=== PATIENT | male | born 1935 | race Caucasian/White ===

== ENCOUNTER 2020-08-23 14:54 | Inpatient (IN) | payer MEDICARE, BC ==
[2020-08-23] MEDS ORDERED: Sodium Chloride 0.9% 2.5 ML Syringe FLUSH PRN (15:23)
[2020-08-23] MEDS ORDERED: Sodium Chloride 0.9% 10 ML Syringe FLUSH PRN (15:23)
[2020-08-23 15:50] LABS: BLOOD UREA NITROGEN,BUN 29 mg/dL (7.0-18.0); CARBON DIOXIDE,CO2 30.7 mmol/L (21.0-32.0); CHLORIDE,CL 109 mmol/L (98-107); GLUCOSE RANDOM 100 mg/dL (74-106); SODIUM,NA 144 mmol/L (136-148)
--- NOTE | 2020-08-23 16:08 | CR ---
HISTORY: Cough and shortness of breath. COMPARISON: 09/07/2015 FINDINGS: A portable erect AP view of the chest was obtained at 15 30 hours. There is new mild patchy interstitial infiltrate throughout the lungs, more prominent on the left than the right. This is associated with new mild vascular engorgement, findings of new mild congestive failure. There is new mild linear density in the right lung base consistent with atelectasis. There is no sign of any pleural effusion. The heart has increased in size and is now mildly enlarged. The mediastinum is otherwise normal in appearance. The osseous structures are normal in appearance for the patient`s age. IMPRESSION: Findings of new mild congestive failure with new mild cardiomegaly. Pulmonary edema slightly more prominent in the left lung than elsewhere. New mild linear right basilar atelectasis. Dictated by Chris Nolan MD @ 08/23/2020 4:07:[address] Chris Nolan @ Aug 23 2020 4:07PM
--- NOTE | 2020-08-23 16:17 | PCM.EKG ---
#1 Interpretation EKG Date: 08/23/20 Time: 15:55 Rhythm: A-Fib Rate (Beats/Min): 97 [place]: Normal P-Wave: Absent QRS: Normal ST-T: Normal QT: Normal Comparison: No Change EKG Interpretation Comments: Prior history of atrial fibrillation seen on prior EKG in 2016.
[2020-08-23 16:47] LABS: CORONAVIRUS COVID-19 NAA NEGATIVE (NEGATIVE); INFLUENZA A NAA NEGATIVE (NEGATIVE); INFLUENZA B NAA NEGATIVE (NEGATIVE)
[2020-08-23] MEDS ORDERED: Iopamidol 755 MG/ML 500 ML Multipack Bottle IVPUSH STA (18:07)
--- NOTE | 2020-08-23 19:01 | CT ---
INDICATION: Aspirated food today. Shortness of breath for 4 weeks. Cough. COMPARISON: Chest radiograph from earlier today. TECHNIQUE: CT examination of the chest was performed with the uneventful intravenous administration of 100 cc of Isovue 370 while 1 and 1.5 mm thick axial sections were obtained through the pulmonary arteries. Please note that all CT scans at this facility use dose modulation, iterative reconstruction, and/or weight-based dosing when appropriate to reduce radiation dose to as low as reasonably achievable. FINDINGS: : There is no sign of pulmonary embolism, with normal enhancement and branching of the pulmonary arteries. There is a small right pleural effusion. There is mild atelectasis of the posterior lung bases, right greater than left. There is mild patchy ground-glass pulmonary infiltrate with a perihilar distribution, consistent with mild pulmonary edema. The pulmonary vessels are mildly engorged, findings consistent with mild congestive failure. There is no sign of mediastinal or hilar mass or adenopathy. The heart is seen to be mildly enlarged with four-chamber dilatation. There is moderate LAD coronary calcification. The heart is otherwise normal in appearance for the patient`s age, as are the aorta and other ascending great vessels. There is no sign of supraclavicular or axillary mass or adenopathy. The visualized superior liver, spleen, pancreas, kidneys, and adrenals are normal in appearance. There is moderate cholelithiasis, with multiple calcified and noncalcified dependent calculi in the gallbladder. There is no sign of acute cholecystitis, with no sign of gallbladder wall thickening or pericholecystic fluid. There is a moderate T10 compression fracture with increased T10-11 disc height with vacuum disc degeneration. The compression fractures more prominent on the left than the right without definite increased scoliosis in this location. There is mild scoliosis of the thoracic spine convex towards the right. There is moderate, age-appropriate hypertrophic change throughout the thoracic spine. IMPRESSION: No sign of pulmonary embolism. Small right greater than left pleural effusions and mild interstitial pulmonary edema with mild vascular engorgement, findings of mild congestive failure. The heart is mildly enlarged. Moderate cholelithiasis without evidence of acute cholecystitis. Please note that all CT scans at this facility use dose modulation, iterative reconstruction, and/or weight-based dosing when appropriate to reduce radiation dose to as low as reasonably achievable. Dictated by Chris Nolan MD @ 08/23/2020 7:00:[address] Chris Nolan @ Aug 23 2020 7:00PM
[2020-08-23] MEDS ORDERED: Furosemide 40 MG/4 ML VIAL IVPUSH ONE (19:11)
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
[2020-08-23] MEDS ORDERED: Albuterol 0.083% 2.5 MG/3 ML Neb Soln NEB PRN (19:50)
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
[2020-08-23] MEDS ORDERED: Bisacodyl 5 MG Tab PRN (23:37)
[2020-08-23] MEDS ORDERED: 50% Dextrose in Water 50 ML Syringe IV PRN (23:39)
[2020-08-23] MEDS ORDERED: Glucagon,Human Recombinant 1 MG Vial IM PRN (23:39)
[2020-08-24] MEDS: Menthol/Methyl Salicylate 29 GM Tube TOP SCH ×3 (01:00→23:32)
[2020-08-24] MEDS ORDERED: Ondansetron 4 MG/2 ML SDV IVPUSH PRN (01:52)
[2020-08-24] MEDS: Ondansetron 4 MG/2 ML SDV IVPUSH SCH (02:28)
[2020-08-24] MEDS: Acetaminophen 500 MG Tab PO SCH ×3 (06:41→22:38)
[2020-08-24 07:02] LABS: BLOOD UREA NITROGEN,BUN 27 mg/dL (7.0-18.0); CHLORIDE,CL 106 mmol/L (98-107); GLUCOSE RANDOM 112 mg/dL (74-106); SODIUM,NA 143 mmol/L (136-148)
[2020-08-24 07:33] LABS: HEMOGLOBIN A1C 5.9 %
[2020-08-24] MEDS: Insulin Aspart 100 Units/ML 3 ML Pen SUBCUT SCH ×3 (07:33→17:50)
[2020-08-24] MEDS: Furosemide 40 MG/4 ML VIAL IVPUSH SCH ×2 (08:44→20:40)
[2020-08-24] MEDS: FLUoxetine 20 MG Cap PO SCH (08:54)
[2020-08-24] MEDS ORDERED: Aspirin 81 MG Tab.EC PO SCH (09:00)
--- NOTE | 2020-08-24 10:17 | PCM.PN ---
- General Info Date of Service: 08/24/20 Admission Dx/Problem (Free Text): Admission Diagnosis/Problem Admission Diagnosis/Problem Congestive heart failure Subjective Update: Patient reports breathing slightly easier today but feels as though he is having at times trouble swallowing and coughing when he is eating. He reports this has been ongoing for many months at [facility]. Denies any chest pain this morning. No abdominal pain. Reports intermittent shortness of breath but otherwise feeling better. No chest pain. Functional Status: Reports: Pain Controlled, Tolerating Diet, Urinating - Review of Systems General: Reports: No Symptoms. Denies: Weakness, Fatigue HEENT: Reports: No Symptoms. Denies: Headaches, Sore Throat, Visual Changes Pulmonary: Reports: Shortness of Breath Cardiovascular: Reports: No Symptoms, Dyspnea on Exertion. Denies: Chest Pain Gastrointestinal: Reports: No Symptoms. Denies: Abdominal Pain, Nausea, Vomiting Genitourinary: Reports: No Symptoms. Denies: Dysuria, Frequency, Burning, Pain Musculoskeletal: Reports: No Symptoms Skin: Reports: No Symptoms Neurological: Reports: No Symptoms Psychiatric: Reports: No Symptoms - Patient Data Vitals - Most Recent: Last Vital Signs Temp 97.2 F 08/24/20 07:44 Pulse 85 08/24/20 08:45 Resp 17 08/24/20 07:44 BP 118/71 08/24/20 08:45 Pulse Ox 91 L 08/24/20 07:44 Weight - Most Recent: 110.5 kg I&O - Last 24 Hours: Intake & Output 08/23/20 08/24/20 08/24/20 22:59 06:59 14:59 Intake Total 120 Output Total 200 Balance -80 Lab Results Last 24 Hours: Laboratory Results - last 24 hr 08/23/20 08/23/20 08/23/20 Range/Units 15:16 15:16 15:16 WBC 7.57 (4.0-11.0) K/uL RBC 4.78 (4.50-5.90) M/uL Hgb 14.2 (13.0-17.0) g/dL Hct 44.1 (38.0-50.0) % MCV 92.3 (80.0-98.0) fL MCH 29.7 (27.0-32.0) pg MCHC 32.2 (31.0-37.0) g/dL RDW Std Deviation 52.1 (28.0-62.0) fl RDW Coeff of Edna 15 (11.0-15.0) % Plt Count 220 (150-400) K/uL MPV 11.60 (7.40-12.00) fL Neut % (Auto) 58.9 (48.0-80.0) % Lymph % (Auto) 29.2 (16.0-40.0) % [place] % (Auto) 8.7 (0.0-15.0) % Eos % (Auto) 2.8 (0.0-7.0) % Baso % (Auto) 0.4 (0.0-1.5) % Neut # (Auto) 4.5 (1.4-5.7) K/uL Lymph # (Auto) 2.2 (0.6-2.4) K/uL [place] # (Auto) 0.7 (0.0-0.8) K/uL Eos # (Auto) 0.2 (0.0-0.7) K/uL Baso # (Auto) 0.0 (0.0-0.1) K/uL Nucleated RBC % 0.0 /100WBC Nucleated RBCs # 0 K/uL Sodium 144 (136-148) mmol/L Potassium 5.0 (3.5-5.1) mmol/L Chloride 109 H (98-107) mmol/L Carbon Dioxide 30.7 (21.0-32.0) mmol/L BUN 29 H (7.0-18.0) mg/dL Creatinine 0.8 (0.8-1.3) mg/dL Est Cr Clr Drug Dosing 81.34 mL/min Estimated GFR (MDRD) > 60.0 ml/min Glucose 100 (74-106) mg/dL POC Glucose (70-99) mg/dL Hemoglobin A1c (4.5 - 6.2) % Calcium 9.0 (8.5-10.1) mg/dL Phosphorus (2.6-4.7) mg/dL Magnesium (1.8-2.4) mg/dL Total Bilirubin 0.5 (0.2-1.0) mg/dL AST 28 (15-37) IU/L ALT 21 (14-63) IU/L Alkaline Phosphatase 67 (46-116) U/L Troponin I < 0.050 (0.000-0.056) ng/mL B-Natriuretic Peptide 161 H (<100) PG/ML Total Protein 7.3 (6.4-8.2) g/dL Albumin 3.0 L (3.4-5.0) g/dL Globulin 4.3 H (2.6-4.0) g/dL Albumin/Globulin Ratio 0.7 L (0.9-1.6) Urine Color Urine Appearance Urine pH (5.0-8.0) Ur Specific [place] (1.001-1.035) Urine Protein (NEGATIVE) mg/dL Urine Glucose (UA) (NEGATIVE) mg/dL Urine Ketones (NEGATIVE) mg/dL Urine Occult Blood (NEGATIVE) Urine Nitrite (NEGATIVE) Urine Bilirubin (NEGATIVE) Urine Urobilinogen (<2.0) EU/dL Ur Leukocyte Esterase (NEGATIVE) Influenza Type A RNA (NEGATIVE) Influenza Type B RNA (NEGATIVE) SARS-CoV-2 RNA (ISABEL) (NEGATIVE) 08/23/20 08/23/20 08/24/20 Range/Units 16:00 16:47 06:05 WBC (4.0-11.0) K/uL RBC (4.50-5.90) M/uL Hgb (13.0-17.0) g/dL Hct (38.0-50.0) % MCV (80.0-98.0) fL MCH (27.0-32.0) pg MCHC (31.0-37.0) g/dL RDW Std Deviation (28.0-62.0) fl RDW Coeff of Edna (11.0-15.0) % Plt Count (150-400) K/uL MPV (7.40-12.00) fL Neut % (Auto) (48.0-80.0) % Lymph % (Auto) (16.0-40.0) % [place] % (Auto) (0.0-15.0) % Eos % (Auto) (0.0-7.0) % Baso % (Auto) (0.0-1.5) % Neut # (Auto) (1.4-5.7) K/uL Lymph # (Auto) (0.6-2.4) K/uL [place] # (Auto) (0.0-0.8) K/uL Eos # (Auto) (0.0-0.7) K/uL Baso # (Auto) (0.0-0.1) K/uL Nucleated RBC % /100WBC Nucleated RBCs # K/uL Sodium (136-148) mmol/L Potassium (3.5-5.1) mmol/L Chloride (98-107) mmol/L Carbon Dioxide (21.0-32.0) mmol/L BUN (7.0-18.0) mg/dL Creatinine (0.8-1.3) mg/dL Est Cr Clr Drug Dosing mL/min Estimated GFR (MDRD) ml/min Glucose (74-106) mg/dL POC Glucose (70-99) mg/dL Hemoglobin A1c 5.9 (4.5 - 6.2) % Calcium (8.5-10.1) mg/dL Phosphorus (2.6-4.7) mg/dL Magnesium (1.8-2.4) mg/dL Total Bilirubin (0.2-1.0) mg/dL AST (15-37) IU/L ALT (14-63) IU/L Alkaline Phosphatase (46-116) U/L Troponin I (0.000-0.056) ng/mL B-Natriuretic Peptide (<100) PG/ML Total Protein (6.4-8.2) g/dL Albumin (3.4-5.0) g/dL Globulin (2.6-4.0) g/dL Albumin/Globulin Ratio (0.9-1.6) Urine Color YELLOW Urine Appearance CLEAR Urine pH 5.0 (5.0-8.0) Ur Specific [place] 1.025 (1.001-1.035) Urine Protein NEGATIVE (NEGATIVE) mg/dL Urine Glucose (UA) NEGATIVE (NEGATIVE) mg/dL Urine Ketones NEGATIVE (NEGATIVE) mg/dL Urine Occult Blood NEGATIVE (NEGATIVE) Urine Nitrite NEGATIVE (NEGATIVE) Urine Bilirubin NEGATIVE (NEGATIVE) Urine Urobilinogen 0.2 (<2.0) EU/dL Ur Leukocyte Esterase NEGATIVE (NEGATIVE) Influenza Type A RNA NEGATIVE (NEGATIVE) Influenza Type B RNA NEGATIVE (NEGATIVE) SARS-CoV-2 RNA (ISABEL) NEGATIVE (NEGATIVE) 08/24/20 08/24/20 08/24/20 Range/Units 06:05 06:05 06:49 WBC 8.12 (4.0-11.0) K/uL RBC 4.63 (4.50-5.90) M/uL Hgb 13.6 (13.0-17.0) g/dL Hct 42.3 (38.0-50.0) % MCV 91.4 (80.0-98.0) fL MCH 29.4 (27.0-32.0) pg MCHC 32.2 (31.0-37.0) g/dL RDW Std Deviation 50.6 (28.0-62.0) fl RDW Coeff of Edna 15 (11.0-15.0) % Plt Count 193 (150-400) K/uL MPV 11.70 (7.40-12.00) fL Neut % (Auto) 65.6 (48.0-80.0) % Lymph % (Auto) 21.9 (16.0-40.0) % [place] % (Auto) 9.2 (0.0-15.0) % Eos % (Auto) 3.1 (0.0-7.0) % Baso % (Auto) 0.2 (0.0-1.5) % Neut # (Auto) 5.3 (1.4-5.7) K/uL Lymph # (Auto) 1.8 (0.6-2.4) K/uL [place] # (Auto) 0.8 (0.0-0.8) K/uL Eos # (Auto) 0.3 (0.0-0.7) K/uL Baso # (Auto) 0.0 (0.0-0.1) K/uL Nucleated RBC % 0.0 /100WBC Nucleated RBCs # 0 K/uL Sodium 143 (136-148) mmol/L Potassium 4.0 (3.5-5.1) mmol/L Chloride 106 (98-107) mmol/L Carbon Dioxide 30.0 (21.0-32.0) mmol/L BUN 27 H (7.0-18.0) mg/dL Creatinine 0.8 (0.8-1.3) mg/dL Est Cr Clr Drug Dosing 79.07 mL/min Estimated GFR (MDRD) > 60.0 ml/min Glucose 112 H (74-106) mg/dL POC Glucose 103 H (70-99) mg/dL Hemoglobin A1c (4.5 - 6.2) % Calcium 8.6 (8.5-10.1) mg/dL Phosphorus 3.7 (2.6-4.7) mg/dL Magnesium 2.3 (1.8-2.4) mg/dL Total Bilirubin (0.2-1.0) mg/dL AST (15-37) IU/L ALT (14-63) IU/L Alkaline Phosphatase (46-116) U/L Troponin I (0.000-0.056) ng/mL B-Natriuretic Peptide (<100) PG/ML Total Protein (6.4-8.2) g/dL Albumin (3.4-5.0) g/dL Globulin (2.6-4.0) g/dL Albumin/Globulin Ratio (0.9-1.6) Urine Color Urine Appearance Urine pH (5.0-8.0) Ur Specific [place] (1.001-1.035) Urine Protein (NEGATIVE) mg/dL Urine Glucose (UA) (NEGATIVE) mg/dL Urine Ketones (NEGATIVE) mg/dL Urine Occult Blood (NEGATIVE) Urine Nitrite (NEGATIVE) Urine Bilirubin (NEGATIVE) Urine Urobilinogen (<2.0) EU/dL Ur Leukocyte Esterase (NEGATIVE) Influenza Type A RNA (NEGATIVE) Influenza Type B RNA (NEGATIVE) SARS-CoV-2 RNA (ISABEL) (NEGATIVE) Med Orders - Current: Current Medications Acetaminophen (Acetaminophen 500 Mg Tab) 500 mg PO TID [facility] Last Admin: 08/24/20 06:41 Dose: Not Given Documented by: Albuterol (Albuterol 0.083% 2.5 Mg/3 Ml Neb Soln) 2.5 mg NEB Q2H PRN PRN Reason: Shortness Of Breath/wheezing Aspirin (Aspirin 81 Mg Tab.Ec) 81 mg PO DAILY [facility] Last Admin: 08/24/20 08:54 Dose: 81 mg Documented by: Bisacodyl (Bisacodyl 5 Mg Tab) 10 mg .XX DAILY PRN PRN Reason: Constipation Dextrose/Water (50% Dextrose In Water 50 Ml Syringe) 50 ml IV ASDIRECTED PRN PRN Reason: Hypoglycemia Fluoxetine HCl (Fluoxetine 20 Mg Cap) 20 mg PO DAILY [facility] Last Admin: 08/24/20 08:54 Dose: 20 mg Documented by: Furosemide (Furosemide 40 Mg/4 Ml Vial) 40 mg IVPUSH BID [facility] Last Admin: 08/24/20 08:44 Dose: 40 mg Documented by: Glucagon (Glucagon,Human Recombinant 1 Mg Vial) 1 mg IM ASDIRECTED PRN PRN Reason: Hypoglycemia Insulin Aspart (Insulin Aspart 100 Units/Ml 3 Ml Pen) 0 unit SUBCUT TIDAC [facility]; Protocol Last Admin: 08/24/20 07:33 Dose: Not Given Documented by: Methyl Salicylate (Menthol/Methyl Salicylate 29 Gm Tube) 1 gm TOP Q12H [facility] Last Admin: 08/24/20 01:00 Dose: Not Given Documented by: Nystatin (Nystatin Topical Powder 15 Gm Bottle) 0 gm TOP QID [facility] Olanzapine (Olanzapine 5 Mg Tab) 10 mg PO BEDTIME JACKIE Ondansetron HCl (Ondansetron 4 Mg/2 Ml Sdv) 4 mg IVPUSH Q4H PRN PRN Reason: Nausea/Vomiting Sodium Chloride (Sodium Chloride 0.9% 10 Ml Syringe) 10 ml FLUSH ASDIRECTED PRN PRN Reason: Keep Vein Open Last Admin: 08/23/20 15:43 Dose: 10 ml Documented by: Sodium Chloride (Sodium Chloride 0.9% 2.5 Ml Syringe) 2.5 ml FLUSH ASDIRECTED PRN PRN Reason: Keep Vein Open Last Admin: 08/23/20 15:43 Dose: 2.5 ml Documented by: Discontinued Medications Furosemide (Furosemide 40 Mg/4 Ml Vial) 20 mg IVPUSH NOW ONE Stop: 08/23/20 19:12 Last Admin: 08/23/20 19:33 Dose: 20 mg Documented by: Iopamidol (Iopamidol 755 Mg/Ml 500 Ml Multipack Bottle) 100 ml IVPUSH ONETIME STA Stop: 08/23/20 18:08 Last Admin: 08/23/20 18:08 Dose: 100 ml Documented by: Ondansetron HCl (Ondansetron 4 Mg/2 Ml Sdv) 4 mg IVPUSH Q4H [facility] Last Admin: 08/24/20 02:28 Dose: Not Given Documented by: - Exam Quality Assessment: DVT Prophylaxis. No: Supplemental Oxygen, Urine Catheter General: Alert, Oriented, Cooperative, No Acute Distress Lungs: Normal Respiratory Effort, Crackles (Bibasilar crackles), Other (Significant bronchial breath sounds with moist sounds. Clears with cough but cough is weak and at times ineffective.) Cardiovascular: Regular Rate, Regular Rhythm, No Murmurs GI/Abdominal Exam: Normal Bowel Sounds, Soft, Non-Tender Extremities: Normal Inspection, Normal Range of Motion, Non-Tender, No Pedal Edema Skin: Ecchymosis, Other (Abrasions that are healing to bilateral shins appears as though patient rubs or had rubbed legs together guards in place from [place].) Neurological: No New Focal Deficit Psy/Mental Status: Alert, Normal Affect, Normal Mood - Patient Data Lab Results Last 24 hrs: Laboratory Results - last 24 hr 08/23/20 08/23/20 08/23/20 Range/Units 15:16 15:16 15:16 WBC 7.57 (4.0-11.0) K/uL RBC 4.78 (4.50-5.90) M/uL Hgb 14.2 (13.0-17.0) g/dL Hct 44.1 (38.0-50.0) % MCV 92.3 (80.0-98.0) fL MCH 29.7 (27.0-32.0) pg MCHC 32.2 (31.0-37.0) g/dL RDW Std Deviation 52.1 (28.0-62.0) fl RDW Coeff of Edna 15 (11.0-15.0) % Plt Count 220 (150-400) K/uL MPV 11.60 (7.40-12.00) fL Neut % (Auto) 58.9 (48.0-80.0) % Lymph % (Auto) 29.2 (16.0-40.0) % [place] % (Auto) 8.7 (0.0-15.0) % Eos % (Auto) 2.8 (0.0-7.0) % Baso % (Auto) 0.4 (0.0-1.5) % Neut # (Auto) 4.5 (1.4-5.7) K/uL Lymph # (Auto) 2.2 (0.6-2.4) K/uL [place] # (Auto) 0.7 (0.0-0.8) K/uL Eos # (Auto) 0.2 (0.0-0.7) K/uL Baso # (Auto) 0.0 (0.0-0.1) K/uL Nucleated RBC % 0.0 /100WBC Nucleated RBCs # 0 K/uL Sodium 144 (136-148) mmol/L Potassium 5.0 (3.5-5.1) mmol/L Chloride 109 H (98-107) mmol/L Carbon Dioxide 30.7 (21.0-32.0) mmol/L BUN 29 H (7.0-18.0) mg/dL Creatinine 0.8 (0.8-1.3) mg/dL Est Cr Clr Drug Dosing 81.34 mL/min Estimated GFR (MDRD) > 60.0 ml/min Glucose 100 (74-106) mg/dL POC Glucose (70-99) mg/dL Hemoglobin A1c (4.5 - 6.2) % Calcium 9.0 (8.5-10.1) mg/dL Phosphorus (2.6-4.7) mg/dL Magnesium (1.8-2.4) mg/dL Total Bilirubin 0.5 (0.2-1.0) mg/dL AST 28 (15-37) IU/L ALT 21 (14-63) IU/L Alkaline Phosphatase 67 (46-116) U/L Troponin I < 0.050 (0.000-0.056) ng/mL B-Natriuretic Peptide 161 H (<100) PG/ML Total Protein 7.3 (6.4-8.2) g/dL Albumin 3.0 L (3.4-5.0) g/dL Globulin 4.3 H (2.6-4.0) g/dL Albumin/Globulin Ratio 0.7 L (0.9-1.6) Urine Color Urine Appearance Urine pH (5.0-8.0) Ur Specific [place] (1.001-1.035) Urine Protein (NEGATIVE) mg/dL Urine Glucose (UA) (NEGATIVE) mg/dL Urine Ketones (NEGATIVE) mg/dL Urine Occult Blood (NEGATIVE) Urine Nitrite (NEGATIVE) Urine Bilirubin (NEGATIVE) Urine Urobilinogen (<2.0) EU/dL Ur Leukocyte Esterase (NEGATIVE) Influenza Type A RNA (NEGATIVE) Influenza Type B RNA (NEGATIVE) SARS-CoV-2 RNA (ISABEL) (NEGATIVE) 05/08/23/20 08/24/20 Range/Units 16:00 16:47 06:05 WBC (4.0-11.0) K/uL RBC (4.50-5.90) M/uL Hgb (13.0-17.0) g/dL Hct (38.0-50.0) % MCV (80.0-98.0) fL MCH (27.0-32.0) pg MCHC (31.0-37.0) g/dL RDW Std Deviation (28.0-62.0) fl RDW Coeff of Edna (11.0-15.0) % Plt Count (150-400) K/uL MPV (7.40-12.00) fL Neut % (Auto) (48.0-80.0) % Lymph % (Auto) (16.0-40.0) % [place] % (Auto) (0.0-15.0) % Eos % (Auto) (0.0-7.0) % Baso % (Auto) (0.0-1.5) % Neut # (Auto) (1.4-5.7) K/uL Lymph # (Auto) (0.6-2.4) K/uL [place] # (Auto) (0.0-0.8) K/uL Eos # (Auto) (0.0-0.7) K/uL Baso # (Auto) (0.0-0.1) K/uL Nucleated RBC % /100WBC Nucleated RBCs # K/uL Sodium (136-148) mmol/L Potassium (3.5-5.1) mmol/L Chloride (98-107) mmol/L Carbon Dioxide (21.0-32.0) mmol/L BUN (7.0-18.0) mg/dL Creatinine (0.8-1.3) mg/dL Est Cr Clr Drug Dosing mL/min Estimated GFR (MDRD) ml/min Glucose (74-106) mg/dL POC Glucose (70-99) mg/dL Hemoglobin A1c 5.9 (4.5 - 6.2) % Calcium (8.5-10.1) mg/dL Phosphorus (2.6-4.7) mg/dL Magnesium (1.8-2.4) mg/dL Total Bilirubin (0.2-1.0) mg/dL AST (15-37) IU/L ALT (14-63) IU/L Alkaline Phosphatase (46-116) U/L Troponin I (0.000-0.056) ng/mL B-Natriuretic Peptide (<100) PG/ML Total Protein (6.4-8.2) g/dL Albumin (3.4-5.0) g/dL Globulin (2.6-4.0) g/dL Albumin/Globulin Ratio (0.9-1.6) Urine Color YELLOW Urine Appearance CLEAR Urine pH 5.0 (5.0-8.0) Ur Specific [place] 1.025 (1.001-1.035) Urine Protein NEGATIVE (NEGATIVE) mg/dL Urine Glucose (UA) NEGATIVE (NEGATIVE) mg/dL Urine Ketones NEGATIVE (NEGATIVE) mg/dL Urine Occult Blood NEGATIVE (NEGATIVE) Urine Nitrite NEGATIVE (NEGATIVE) Urine Bilirubin NEGATIVE (NEGATIVE) Urine Urobilinogen 0.2 (<2.0) EU/dL Ur Leukocyte Esterase NEGATIVE (NEGATIVE) Influenza Type A RNA NEGATIVE (NEGATIVE) Influenza Type B RNA NEGATIVE (NEGATIVE) SARS-CoV-2 RNA (ISABEL) NEGATIVE (NEGATIVE) 08/24/20 08/24/20 08/24/20 Range/Units 06:05 06:05 06:49 WBC 8.12 (4.0-11.0) K/uL RBC 4.63 (4.50-5.90) M/uL Hgb 13.6 (13.0-17.0) g/dL Hct 42.3 (38.0-50.0) % MCV 91.4 (80.0-98.0) fL MCH 29.4 (27.0-32.0) pg MCHC 32.2 (31.0-37.0) g/dL RDW Std Deviation 50.6 (28.0-62.0) fl RDW Coeff of Edna 15 (11.0-15.0) % Plt Count 193 (150-400) K/uL MPV 11.70 (7.40-12.00) fL Neut % (Auto) 65.6 (48.0-80.0) % Lymph % (Auto) 21.9 (16.0-40.0) % [place] % (Auto) 9.2 (0.0-15.0) % Eos % (Auto) 3.1 (0.0-7.0) % Baso % (Auto) 0.2 (0.0-1.5) % Neut # (Auto) 5.3 (1.4-5.7) K/uL Lymph # (Auto) 1.8 (0.6-2.4) K/uL [place] # (Auto) 0.8 (0.0-0.8) K/uL Eos # (Auto) 0.3 (0.0-0.7) K/uL Baso # (Auto) 0.0 (0.0-0.1) K/uL Nucleated RBC % 0.0 /100WBC Nucleated RBCs # 0 K/uL Sodium 143 (136-148) mmol/L Potassium 4.0 (3.5-5.1) mmol/L Chloride 106 (98-107) mmol/L Carbon Dioxide 30.0 (21.0-32.0) mmol/L BUN 27 H (7.0-18.0) mg/dL Creatinine 0.8 (0.8-1.3) mg/dL Est Cr Clr Drug Dosing 79.07 mL/min Estimated GFR (MDRD) > 60.0 ml/min Glucose 112 H (74-106) mg/dL POC Glucose 103 H (70-99) mg/dL Hemoglobin A1c (4.5 - 6.2) % Calcium 8.6 (8.5-10.1) mg/dL Phosphorus 3.7 (2.6-4.7) mg/dL Magnesium 2.3 (1.8-2.4) mg/dL Total Bilirubin (0.2-1.0) mg/dL AST (15-37) IU/L ALT (14-63) IU/L Alkaline Phosphatase (46-116) U/L Troponin I (0.000-0.056) ng/mL B-Natriuretic Peptide (<100) PG/ML Total Protein (6.4-8.2) g/dL Albumin (3.4-5.0) g/dL Globulin (2.6-4.0) g/dL Albumin/Globulin Ratio (0.9-1.6) Urine Color Urine Appearance Urine pH (5.0-8.0) Ur Specific [place] (1.001-1.035) Urine Protein (NEGATIVE) mg/dL Urine Glucose (UA) (NEGATIVE) mg/dL Urine Ketones (NEGATIVE) mg/dL Urine Occult Blood (NEGATIVE) Urine Nitrite (NEGATIVE) Urine Bilirubin (NEGATIVE) Urine Urobilinogen (<2.0) EU/dL Ur Leukocyte Esterase (NEGATIVE) Influenza Type A RNA (NEGATIVE) Influenza Type B RNA (NEGATIVE) SARS-CoV-2 RNA (ISABEL) (NEGATIVE) Result Diagrams: 08/24/20 06:05 08/24/20 06:05 Sepsis Event Note - Evaluation Sepsis Screening Result: No Definite Risk - Focused Exam Vital Signs: Vital Signs Temp Pulse Resp BP Pulse Ox Pulse Ox 08/24/20 08:45 85 118/71 08/24/20 07:44 97.2 F 77 17 111/57 L 91 L 08/24/20 04:36 97.7 F 89 18 120/75 93 L 08/24/20 00:32 93 L 08/24/20 00:00 97.0 F 79 18 94/61 93 L 08/23/20 22:55 97.0 F 84 18 123/65 93 L - Problem List & Annotations (1) Acute exacerbation of congestive heart failure SNOMED Code(s): 746343729, 54901503365820 Code(s): I50.9 - HEART FAILURE, UNSPECIFIED Status: Acute Current Visit: Yes Qualifiers: Heart failure type: unspecified Qualified Code(s): I50.9 - Heart failure, unspecified (2) Dyspnea SNOMED Code(s): 290941541 Code(s): R06.00 - DYSPNEA, UNSPECIFIED Status: Acute Current Visit: Yes Qualifiers: Dyspnea type: unspecified Qualified Code(s): R06.00 - Dyspnea, unspecified (3) Dementia SNOMED Code(s): 06029325 Code(s): F03.90 - UNSPECIFIED DEMENTIA WITHOUT BEHAVIORAL DISTURBANCE Status: Acute Current Visit: No Qualifiers: Dementia type: unspecified type Dementia behavioral disturbance: without behavioral disturbance Qualified Code(s): F03.90 - Unspecified dementia without behavioral disturbance (4) Afib SNOMED Code(s): 61510600 Code(s): I48.91 - UNSPECIFIED ATRIAL FIBRILLATION Status: Chronic Current Visit: No Qualifiers: Atrial fibrillation type: chronic (5) CHF (congestive heart failure) SNOMED Code(s): 43484082 Code(s): I50.9 - HEART FAILURE, UNSPECIFIED Status: Chronic Priority: Low Current Visit: No (6) History of CVA (cerebrovascular accident) SNOMED Code(s): 864693937 Code(s): Z86.73 - PRSNL HX OF TIA (TIA), AND CEREB INFRC W/O RESID DEFICITS Status: Chronic Current Visit: No (7) Hypertension SNOMED Code(s): 92333343 Code(s): I10 - ESSENTIAL (PRIMARY) HYPERTENSION Status: Chronic Priority: Low Current Visit: No - Problem List Review Problem List Initiated/Reviewed/Updated: Yes - My Orders Last 24 Hours: My Active Orders 08/24/20 08:15 Height and Weight [RC] DAILY Intake and Output Strict [RC] Q12H 08/24/20 09:08 Nystatin [Nystop] See Dose Instructions TOP QID - Plan Plan:: 85-year-old male admitted for acute on chronic CHF exacerbation 1. Acute on chronic CHF exacerbation -Obtain echo -Continue Lasix twice daily -2 g low-sodium diet with 2 L fluid restriction -Daily weights strict I's and O's 2. Dysphagia -Has had episodes of choking for minutes at [facility]. It appears on paperwork patient had refused mechanical soft diet with thickened liquids. - speech therapy consulted and noted patient definitely needs modified barium swallow. Bedside swallow he passed but had issues this morning with some choking and coughing on breakfast with nursing staff -Up to chair for all meals -Aspiration precautions. 3. Hypertension/Afib/CVA -Hold antihypertensives as blood pressure is on the softer side. Has improved with diuresis -Continue to monitor with aggressive diuresis for CHF. -Patient noted to only be on aspirin. [id number] score of 4 will start Eliquis 5 mg twice daily for stroke prevention. No sign of GI bleeding in history. VTE prophylaxis: Eliquis 5 mg twice daily CODE STATUS: DNR/DNI Dispo: 1-2 more days continue diuresis.
[2020-08-24] MEDS: Nystatin Topical Powder 15 GM Bottle TOP SCH ×4 (10:18→23:01)
[2020-08-24] MEDS: Apixaban 5 MG Tab PO SCH (20:40)
[2020-08-24] MEDS: OLANZapine 5 MG Tab PO SCH (20:40)
[2020-08-24] MEDS ORDERED: Diltiazem 25 MG/5 ML SDV IVPUSH PRN (22:38)
[2020-08-24] MEDS ORDERED: Non-Formulary Medication 1 Each (Metoprolol Tartrate 100 MG Tablet) PO SCH (22:45)
[2020-08-24] MEDS: Metoprolol Tartrate 50 MG Tab PO SCH (22:56)
[2020-08-25] MEDS: Nystatin Topical Powder 15 GM Bottle TOP SCH ×3 (05:54→19:46)
[2020-08-25] MEDS: Acetaminophen 500 MG Tab PO SCH ×3 (05:55→22:48)
[2020-08-25 07:27] LABS: BLOOD UREA NITROGEN,BUN 25 mg/dL (7.0-18.0); CARBON DIOXIDE,CO2 29.6 mmol/L (21.0-32.0); CHLORIDE,CL 105 mmol/L (98-107); GLUCOSE RANDOM 119 mg/dL (74-106); POTASSIUM,K 3.8 mmol/L (3.5-5.1); SODIUM,NA 140 mmol/L (136-148)
[2020-08-25] MEDS: Insulin Aspart 100 Units/ML 3 ML Pen SUBCUT SCH ×3 (07:40→19:44)
[2020-08-25] MEDS: Apixaban 5 MG Tab PO SCH ×2 (09:27→22:39)
[2020-08-25] MEDS: Furosemide 40 MG/4 ML VIAL IVPUSH SCH ×2 (09:28→22:39)
[2020-08-25] MEDS: FLUoxetine 20 MG Cap PO SCH (09:28)
[2020-08-25] MEDS: Metoprolol Tartrate 50 MG Tab PO SCH (11:19)
[2020-08-25] MEDS: Menthol/Methyl Salicylate 29 GM Tube TOP SCH (11:37)
--- NOTE | 2020-08-25 14:33 | PCM.PN ---
- General Info Date of Service: 08/25/20 Admission Dx/Problem (Free Text): Admission Diagnosis/Problem Admission Diagnosis/Problem Congestive heart failure Subjective Update: Patient resting in bed, no complaints. Patient had a coughing episode yesterday when he was eating salad. Today patient was able to tolerate a soft diet pretty well with supervised feeding. Heart rate was a little elevated yesterday but today it is much better controlled - Review of Systems General: Denies: Fever, Weakness, Fatigue Pulmonary: Denies: Shortness of Breath, Pleuritic Chest Pain Cardiovascular: Denies: Chest Pain, Palpitations Gastrointestinal: Denies: Abdominal Pain, Constipation, Decreased Appetite Genitourinary: Denies: Dysuria, Frequency, Burning Musculoskeletal: Denies: Neck Pain, Shoulder Pain, Arm Pain - Patient Data Vitals - Most Recent: Last Vital Signs Temp 36.3 C 08/25/20 11:21 Pulse 75 08/25/20 11:21 Resp 16 08/25/20 11:21 BP 113/67 08/25/20 11:19 Pulse Ox 94 L 08/25/20 11:21 Weight - Most Recent: 106.5 kg I&O - Last 24 Hours: Intake & Output 08/24/20 08/25/20 08/25/20 22:59 06:59 14:59 Intake Total 650 300 Output Total 600 1247 Balance 50 -947 Lab Results Last 24 Hours: Laboratory Results - last 24 hr 08/24/20 08/25/20 08/25/20 Range/Units 17:45 06:31 06:31 WBC 7.61 (4.0-11.0) K/uL RBC 4.88 (4.50-5.90) M/uL Hgb 14.1 (13.0-17.0) g/dL Hct 44.3 (38.0-50.0) % MCV 90.8 (80.0-98.0) fL MCH 28.9 (27.0-32.0) pg MCHC 31.8 (31.0-37.0) g/dL RDW Std Deviation 50.5 (28.0-62.0) fl RDW Coeff of Edna 15 (11.0-15.0) % Plt Count 197 (150-400) K/uL MPV 11.60 (7.40-12.00) fL Neut % (Auto) 71.1 (48.0-80.0) % Lymph % (Auto) 18.4 (16.0-40.0) % [place] % (Auto) 8.0 (0.0-15.0) % Eos % (Auto) 2.2 (0.0-7.0) % Baso % (Auto) 0.3 (0.0-1.5) % Neut # (Auto) 5.4 (1.4-5.7) K/uL Lymph # (Auto) 1.4 (0.6-2.4) K/uL [place] # (Auto) 0.6 (0.0-0.8) K/uL Eos # (Auto) 0.2 (0.0-0.7) K/uL Baso # (Auto) 0.0 (0.0-0.1) K/uL Nucleated RBC % 0.0 /100WBC Nucleated RBCs # 0 K/uL Sodium 140 (136-148) mmol/L Potassium 3.8 (3.5-5.1) mmol/L Chloride 105 (98-107) mmol/L Carbon Dioxide 29.6 (21.0-32.0) mmol/L BUN 25 H (7.0-18.0) mg/dL Creatinine 0.7 L (0.8-1.3) mg/dL Est Cr Clr Drug Dosing 90.36 mL/min Estimated GFR (MDRD) > 60.0 ml/min Glucose 119 H (74-106) mg/dL POC Glucose 121 H (70-99) mg/dL Calcium 8.6 (8.5-10.1) mg/dL Magnesium 2.3 (1.8-2.4) mg/dL 08/25/20 08/25/20 Range/Units 06:46 13:31 WBC (4.0-11.0) K/uL RBC (4.50-5.90) M/uL Hgb (13.0-17.0) g/dL Hct (38.0-50.0) % MCV (80.0-98.0) fL MCH (27.0-32.0) pg MCHC (31.0-37.0) g/dL RDW Std Deviation (28.0-62.0) fl RDW Coeff of Edna (11.0-15.0) % Plt Count (150-400) K/uL MPV (7.40-12.00) fL Neut % (Auto) (48.0-80.0) % Lymph % (Auto) (16.0-40.0) % [place] % (Auto) (0.0-15.0) % Eos % (Auto) (0.0-7.0) % Baso % (Auto) (0.0-1.5) % Neut # (Auto) (1.4-5.7) K/uL Lymph # (Auto) (0.6-2.4) K/uL [place] # (Auto) (0.0-0.8) K/uL Eos # (Auto) (0.0-0.7) K/uL Baso # (Auto) (0.0-0.1) K/uL Nucleated RBC % /100WBC Nucleated RBCs # K/uL Sodium (136-148) mmol/L Potassium (3.5-5.1) mmol/L Chloride (98-107) mmol/L Carbon Dioxide (21.0-32.0) mmol/L BUN (7.0-18.0) mg/dL Creatinine (0.8-1.3) mg/dL Est Cr Clr Drug Dosing mL/min Estimated GFR (MDRD) ml/min Glucose (74-106) mg/dL POC Glucose 108 H 126 H (70-99) mg/dL Calcium (8.5-10.1) mg/dL Magnesium (1.8-2.4) mg/dL Med Orders - Current: Current Medications Acetaminophen (Acetaminophen 500 Mg Tab) 500 mg PO TID [facility] Last Admin: 08/25/20 05:55 Dose: Not Given Documented by: Albuterol (Albuterol 0.083% 2.5 Mg/3 Ml Neb Soln) 2.5 mg NEB Q2H PRN PRN Reason: Shortness Of Breath/wheezing Apixaban (Apixaban 5 Mg Tab) 5 mg PO BID [facility] Last Admin: 08/25/20 09:27 Dose: 5 mg Documented by: Bisacodyl (Bisacodyl 5 Mg Tab) 10 mg .XX DAILY PRN PRN Reason: Constipation Dextrose/Water (50% Dextrose In Water 50 Ml Syringe) 50 ml IV ASDIRECTED PRN PRN Reason: Hypoglycemia Diltiazem HCl (Diltiazem 25 Mg/5 Ml Sdv) 20 mg IVPUSH Q4H PRN PRN Reason: Tachycardia Fluoxetine HCl (Fluoxetine 20 Mg Cap) 20 mg PO DAILY [facility] Last Admin: 08/25/20 09:28 Dose: 20 mg Documented by: Furosemide (Furosemide 40 Mg/4 Ml Vial) 40 mg IVPUSH BID [facility] Last Admin: 08/25/20 09:28 Dose: 40 mg Documented by: Glucagon (Glucagon,Human Recombinant 1 Mg Vial) 1 mg IM ASDIRECTED PRN PRN Reason: Hypoglycemia Insulin Aspart (Insulin Aspart 100 Units/Ml 3 Ml Pen) 0 unit SUBCUT TIDAC [facility]; Protocol Last Admin: 08/25/20 11:21 Dose: Not Given Documented by: Methyl Salicylate (Menthol/Methyl Salicylate 29 Gm Tube) 1 gm TOP Q12H [facility] Last Admin: 08/25/20 11:37 Dose: Not Given Documented by: Metoprolol Tartrate (Metoprolol Tartrate 50 Mg Tab) 50 mg PO Q12H [facility] Last Admin: 08/25/20 11:19 Dose: 50 mg Documented by: Nystatin (Nystatin Topical Powder 15 Gm Bottle) 0 gm TOP QID [facility] Last Admin: 08/25/20 11:38 Dose: 1 applic Documented by: Olanzapine (Olanzapine 5 Mg Tab) 10 mg PO BEDTIME [facility] Last Admin: 08/24/20 20:40 Dose: 10 mg Documented by: Ondansetron HCl (Ondansetron 4 Mg/2 Ml Sdv) 4 mg IVPUSH Q4H PRN PRN Reason: Nausea/Vomiting Sodium Chloride (Sodium Chloride 0.9% 10 Ml Syringe) 10 ml FLUSH ASDIRECTED PRN PRN Reason: Keep Vein Open Last Admin: 08/23/20 15:43 Dose: 10 ml Documented by: Sodium Chloride (Sodium Chloride 0.9% 2.5 Ml Syringe) 2.5 ml FLUSH ASDIRECTED PRN PRN Reason: Keep Vein Open Last Admin: 08/23/20 15:43 Dose: 2.5 ml Documented by: Discontinued Medications Aspirin (Aspirin 81 Mg Tab.Ec) 81 mg PO DAILY [facility] Last Admin: 08/24/20 08:54 Dose: 81 mg Documented by: Furosemide (Furosemide 40 Mg/4 Ml Vial) 20 mg IVPUSH NOW ONE Stop: 08/23/20 19:12 Last Admin: 08/23/20 19:33 Dose: 20 mg Documented by: Iopamidol (Iopamidol 755 Mg/Ml 500 Ml Multipack Bottle) 100 ml IVPUSH ONETIME [facility] Stop: 08/23/20 18:08 Last Admin: 08/23/20 18:08 Dose: 100 ml Documented by: Non-Formulary Medication (Metoprolol Tartrate) 100 mg PO BID [facility] Ondansetron HCl (Ondansetron 4 Mg/2 Ml Sdv) 4 mg IVPUSH Q4H [facility] Last Admin: 08/24/20 02:28 Dose: Not Given Documented by: - Exam General: Alert, Oriented Neck: Supple Lungs: Normal Respiratory Effort, Decreased Breath Sounds, Crackles Cardiovascular: Regular Rate, Irregular Rhythm GI/Abdominal Exam: Normal Bowel Sounds, Soft, Non-Tender - Patient Data Lab Results Last 24 hrs: Laboratory Results - last 24 hr 08/24/20 08/25/20 08/25/20 Range/Units 17:45 06:31 06:31 WBC 7.61 (4.0-11.0) K/uL RBC 4.88 (4.50-5.90) M/uL Hgb 14.1 (13.0-17.0) g/dL Hct 44.3 (38.0-50.0) % MCV 90.8 (80.0-98.0) fL MCH 28.9 (27.0-32.0) pg MCHC 31.8 (31.0-37.0) g/dL RDW Std Deviation 50.5 (28.0-62.0) fl RDW Coeff of Edna 15 (11.0-15.0) % Plt Count 197 (150-400) K/uL MPV 11.60 (7.40-12.00) fL Neut % (Auto) 71.1 (48.0-80.0) % Lymph % (Auto) 18.4 (16.0-40.0) % [place] % (Auto) 8.0 (0.0-15.0) % Eos % (Auto) 2.2 (0.0-7.0) % Baso % (Auto) 0.3 (0.0-1.5) % Neut # (Auto) 5.4 (1.4-5.7) K/uL Lymph # (Auto) 1.4 (0.6-2.4) K/uL [place] # (Auto) 0.6 (0.0-0.8) K/uL Eos # (Auto) 0.2 (0.0-0.7) K/uL Baso # (Auto) 0.0 (0.0-0.1) K/uL Nucleated RBC % 0.0 /100WBC Nucleated RBCs # 0 K/uL Sodium 140 (136-148) mmol/L Potassium 3.8 (3.5-5.1) mmol/L Chloride 105 (98-107) mmol/L Carbon Dioxide 29.6 (21.0-32.0) mmol/L BUN 25 H (7.0-18.0) mg/dL Creatinine 0.7 L (0.8-1.3) mg/dL Est Cr Clr Drug Dosing 90.36 mL/min Estimated GFR (MDRD) > 60.0 ml/min Glucose 119 H (74-106) mg/dL POC Glucose 121 H (70-99) mg/dL Calcium 8.6 (8.5-10.1) mg/dL Magnesium 2.3 (1.8-2.4) mg/dL 08/25/20 08/25/20 Range/Units 06:46 13:31 WBC (4.0-11.0) K/uL RBC (4.50-5.90) M/uL Hgb (13.0-17.0) g/dL Hct (38.0-50.0) % MCV (80.0-98.0) fL MCH (27.0-32.0) pg MCHC (31.0-37.0) g/dL RDW Std Deviation (28.0-62.0) fl RDW Coeff of Edna (11.0-15.0) % Plt Count (150-400) K/uL MPV (7.40-12.00) fL Neut % (Auto) (48.0-80.0) % Lymph % (Auto) (16.0-40.0) % [place] % (Auto) (0.0-15.0) % Eos % (Auto) (0.0-7.0) % Baso % (Auto) (0.0-1.5) % Neut # (Auto) (1.4-5.7) K/uL Lymph # (Auto) (0.6-2.4) K/uL [place] # (Auto) (0.0-0.8) K/uL Eos # (Auto) (0.0-0.7) K/uL Baso # (Auto) (0.0-0.1) K/uL Nucleated RBC % /100WBC Nucleated RBCs # K/uL Sodium (136-148) mmol/L Potassium (3.5-5.1) mmol/L Chloride (98-107) mmol/L Carbon Dioxide (21.0-32.0) mmol/L BUN (7.0-18.0) mg/dL Creatinine (0.8-1.3) mg/dL Est Cr Clr Drug Dosing mL/min Estimated GFR (MDRD) ml/min Glucose (74-106) mg/dL POC Glucose 108 H 126 H (70-99) mg/dL Calcium (8.5-10.1) mg/dL Magnesium (1.8-2.4) mg/dL Result Diagrams: 08/25/20 06:31 08/25/20 06:31 Sepsis Event Note - Evaluation Sepsis Screening Result: No Definite Risk - Focused Exam Vital Signs: Vital Signs Temp Pulse Pulse Resp BP BP Pulse Ox 08/25/20 11:21 36.3 C 75 16 94 L 08/25/20 11:19 73 113/67 08/25/20 08:59 35.9 C L 72 20 102/69 91 L 08/25/20 05:51 36.2 C 72 18 106/60 94 L - Problem List Review Problem List Initiated/Reviewed/Updated: Yes - My Orders Last 24 Hours: My Active Orders 08/24/20 21:00 OLANZapine [ZyPREXA] 10 mg PO BEDTIME 08/24/20 22:38 Diltiazem 20 mg IVPUSH Q4H PRN 08/24/20 22:45 Metoprolol Tartrate [Lopressor] 50 mg PO Q12H - Plan Plan:: 85-year-old male admitted for acute on chronic CHF exacerbation 1. Acute on chronic CHF exacerbation -Obtain echo -Continue Lasix twice daily -2 g low-sodium diet with 2 L fluid restriction -Daily weights strict I's and O's 2. Dysphagia -Has had episodes of choking for minutes at [place]. It appears on paperwork patient had refused mechanical soft diet with thickened liquids. - speech therapy consulted and noted patient definitely needs modified barium swallow. Bedside swallow he passed but had issues this morning with some choking and coughing on breakfast with nursing staff -Up to chair for all meals -Aspiration precautions. 3. Hypertension/Afib/CVA -Hold antihypertensives as blood pressure is on the softer side. -Continue to monitor with aggressive diuresis for CHF. -Patient noted to only be on aspirin. [id number] score of 4 will start Eliquis 5 mg twice daily for stroke prevention. No sign of GI bleeding in history. VTE prophylaxis: Eliquis 5 mg twice daily CODE STATUS: DNR/DNI Dispo: 1-2 more days continue diuresis.
[2020-08-25] MEDS: OLANZapine 5 MG Tab PO SCH (22:39)
[2020-08-26] MEDS: Metoprolol Tartrate 50 MG Tab PO SCH ×2 (00:46→10:48)
[2020-08-26] MEDS: Nystatin Topical Powder 15 GM Bottle TOP SCH ×5 (00:51→18:09)
[2020-08-26] MEDS: Menthol/Methyl Salicylate 29 GM Tube TOP SCH ×3 (00:52→23:10)
[2020-08-26 05:49] LABS: BLOOD UREA NITROGEN,BUN 21 mg/dL (7.0-18.0); CARBON DIOXIDE,CO2 29.4 mmol/L (21.0-32.0); CHLORIDE,CL 104 mmol/L (98-107); GLUCOSE RANDOM 121 mg/dL (74-106); POTASSIUM,K 3.5 mmol/L (3.5-5.1); SODIUM,NA 139 mmol/L (136-148)
[2020-08-26] MEDS: Acetaminophen 500 MG Tab PO SCH ×3 (05:49→23:10)
[2020-08-26] MEDS: Furosemide 40 MG/4 ML VIAL IVPUSH SCH (10:32)
[2020-08-26] MEDS: FLUoxetine 20 MG Cap PO SCH (10:32)
[2020-08-26] MEDS: Apixaban 5 MG Tab PO SCH ×2 (10:32→20:24)
[2020-08-26] MEDS: Insulin Aspart 100 Units/ML 3 ML Pen SUBCUT SCH ×3 (10:32→16:16)
--- NOTE | 2020-08-26 11:14 | CR ---
INDICATION: Cough. TECHNIQUE: Upright portable AP image of the chest. COMPARISON: 08/23/2020. FINDINGS: Shallow inspiration and right lung base pneumonia. Left lung clear. No pleural effusion. Stable mild cardiomegaly. Pulmonary veins normal in caliber. No significant bony abnormality. IMPRESSION: 1. Shallow inspiration and right lung base pneumonia. 2. Stable mild cardiomegaly. Dictated by Alberto Simmons MD @ 08/26/2020 11:11:[address] Alberto Simmons @ Aug 26 2020 11:11AM
[2020-08-26] MEDS ORDERED: cefTRIAXone 1 GM Vial IVPUSH SCH (11:15)
[2020-08-26] MEDS ORDERED: cefTRIAXone 1 GM in Premix Bag 1 BAG IV SCH (11:30)
--- NOTE | 2020-08-26 12:42 | PCM.PN ---
- General Info Date of Service: 08/26/20 Admission Dx/Problem (Free Text): Admission Diagnosis/Problem Admission Diagnosis/Problem Congestive heart failure Subjective Update: Patient seen at bedside, more sleepy and lethargic today but easily arousable, slight leukocytosis noted on the labs, per nursing patient has excoriation in his scrotal region as well as under the abdominal pannus. - Review of Systems General: Reports: Weakness, Fatigue, Malaise. Denies: Fever Pulmonary: Reports: Shortness of Breath, Cough Cardiovascular: Reports: Dyspnea on Exertion. Denies: Chest Pain, Palpitations Gastrointestinal: Denies: Abdominal Pain, Constipation Genitourinary: Denies: Dysuria, Frequency, Burning Musculoskeletal: Denies: Neck Pain, Shoulder Pain, Arm Pain Skin: Denies: Cyanosis, Jaundice, Mottled Neurological: Denies: Confusion, Dizziness, Headache, Numbness - Patient Data Vitals - Most Recent: Last Vital Signs Temp 35.9 C L 08/26/20 09:00 Pulse 76 08/26/20 10:48 Resp 22 H 08/26/20 09:00 BP 100/62 08/26/20 10:48 Pulse Ox 93 L 08/26/20 09:00 Weight - Most Recent: 104 kg I&O - Last 24 Hours: Intake & Output 08/25/20 08/26/20 08/26/20 22:59 06:59 14:59 Intake Total 456 360 Output Total 1640 Balance 456 -1280 Lab Results Last 24 Hours: Laboratory Results - last 24 hr 08/25/20 08/25/20 08/26/20 Range/Units 13:31 17:26 04:50 WBC 11.98 H (4.0-11.0) K/uL RBC 4.83 (4.50-5.90) M/uL Hgb 14.2 (13.0-17.0) g/dL Hct 43.9 (38.0-50.0) % MCV 90.9 (80.0-98.0) fL MCH 29.4 (27.0-32.0) pg MCHC 32.3 (31.0-37.0) g/dL RDW Std Deviation 50.4 (28.0-62.0) fl RDW Coeff of Edna 15 (11.0-15.0) % Plt Count 199 (150-400) K/uL MPV 11.90 (7.40-12.00) fL Neut % (Auto) 73.3 (48.0-80.0) % Lymph % (Auto) 15.0 L (16.0-40.0) % [place] % (Auto) 9.4 (0.0-15.0) % Eos % (Auto) 2.1 (0.0-7.0) % Baso % (Auto) 0.2 (0.0-1.5) % Neut # (Auto) 8.8 H (1.4-5.7) K/uL Lymph # (Auto) 1.8 (0.6-2.4) K/uL Gonzales # (Auto) 1.1 H (0.0-0.8) K/uL Eos # (Auto) 0.3 (0.0-0.7) K/uL Baso # (Auto) 0.0 (0.0-0.1) K/uL Nucleated RBC % 0.0 /100WBC Nucleated RBCs # 0 K/uL Sodium (136-148) mmol/L Potassium (3.5-5.1) mmol/L Chloride (98-107) mmol/L Carbon Dioxide (21.0-32.0) mmol/L BUN (7.0-18.0) mg/dL Creatinine (0.8-1.3) mg/dL Est Cr Clr Drug Dosing mL/min Estimated GFR (MDRD) ml/min Glucose (74-106) mg/dL POC Glucose 126 H 95 (70-99) mg/dL Calcium (8.5-10.1) mg/dL Phosphorus (2.6-4.7) mg/dL Magnesium (1.8-2.4) mg/dL 08/26/20 08/26/20 Range/Units 04:50 06:33 WBC (4.0-11.0) K/uL RBC (4.50-5.90) M/uL Hgb (13.0-17.0) g/dL Hct (38.0-50.0) % MCV (80.0-98.0) fL MCH (27.0-32.0) pg MCHC (31.0-37.0) g/dL RDW Std Deviation (28.0-62.0) fl RDW Coeff of Edna (11.0-15.0) % Plt Count (150-400) K/uL MPV (7.40-12.00) fL Neut % (Auto) (48.0-80.0) % Lymph % (Auto) (16.0-40.0) % Gonzales % (Auto) (0.0-15.0) % Eos % (Auto) (0.0-7.0) % Baso % (Auto) (0.0-1.5) % Neut # (Auto) (1.4-5.7) K/uL Lymph # (Auto) (0.6-2.4) K/uL Gonzales # (Auto) (0.0-0.8) K/uL Eos # (Auto) (0.0-0.7) K/uL Baso # (Auto) (0.0-0.1) K/uL Nucleated RBC % /100WBC Nucleated RBCs # K/uL Sodium 139 (136-148) mmol/L Potassium 3.5 (3.5-5.1) mmol/L Chloride 104 (98-107) mmol/L Carbon Dioxide 29.4 (21.0-32.0) mmol/L BUN 21 H (7.0-18.0) mg/dL Creatinine 0.8 (0.8-1.3) mg/dL Est Cr Clr Drug Dosing 79.07 mL/min Estimated GFR (MDRD) > 60.0 ml/min Glucose 121 H (74-106) mg/dL POC Glucose 120 H (70-99) mg/dL Calcium 8.5 (8.5-10.1) mg/dL Phosphorus 3.4 (2.6-4.7) mg/dL Magnesium 2.1 (1.8-2.4) mg/dL Med Orders - Current: Current Medications Acetaminophen (Acetaminophen 500 Mg Tab) 500 mg PO TID [facility] Last Admin: 08/26/20 05:49 Dose: Not Given Documented by: Albuterol (Albuterol 0.083% 2.5 Mg/3 Ml Neb Soln) 2.5 mg NEB Q2H PRN PRN Reason: Shortness Of Breath/wheezing Apixaban (Apixaban 5 Mg Tab) 5 mg PO BID [facility] Last Admin: 08/26/20 10:32 Dose: 5 mg Documented by: Bisacodyl (Bisacodyl 5 Mg Tab) 10 mg .XX DAILY PRN PRN Reason: Constipation Dextrose/Water (50% Dextrose In Water 50 Ml Syringe) 50 ml IV ASDIRECTED PRN PRN Reason: Hypoglycemia Diltiazem HCl (Diltiazem 25 Mg/5 Ml Sdv) 20 mg IVPUSH Q4H PRN PRN Reason: Tachycardia Fluoxetine HCl (Fluoxetine 20 Mg Cap) 20 mg PO DAILY [facility] Last Admin: 08/26/20 10:32 Dose: 20 mg Documented by: Furosemide (Furosemide 40 Mg/4 Ml Vial) 40 mg IVPUSH BID [facility] Last Admin: 08/26/20 10:32 Dose: 40 mg Documented by: Glucagon (Glucagon,Human Recombinant 1 Mg Vial) 1 mg IM ASDIRECTED PRN PRN Reason: Hypoglycemia Levofloxacin/Dextrose 750 mg/ (Premix) 150 mls @ 100 mls/hr IV Q24H [facility] Insulin Aspart (Insulin Aspart 100 Units/Ml 3 Ml Pen) 0 unit SUBCUT TIDAC [facility]; Protocol Last Admin: 08/26/20 10:51 Dose: Not Given Documented by: Methyl Salicylate (Menthol/Methyl Salicylate 29 Gm Tube) 1 gm TOP Q12H [facility] Last Admin: 08/26/20 12:03 Dose: Not Given Documented by: Metoprolol Tartrate (Metoprolol Tartrate 50 Mg Tab) 50 mg PO Q12H [facility] Last Admin: 08/26/20 10:48 Dose: 50 mg Documented by: Nystatin (Nystatin Topical Powder 15 Gm Bottle) 0 gm TOP QID [facility] Last Admin: 08/26/20 12:04 Dose: Not Given Documented by: Olanzapine (Olanzapine 5 Mg Tab) 10 mg PO BEDTIME [facility] Last Admin: 08/25/20 22:39 Dose: 10 mg Documented by: Ondansetron HCl (Ondansetron 4 Mg/2 Ml Sdv) 4 mg IVPUSH Q4H PRN PRN Reason: Nausea/Vomiting Sodium Chloride (Sodium Chloride 0.9% 10 Ml Syringe) 10 ml FLUSH ASDIRECTED PRN PRN Reason: Keep Vein Open Last Admin: 08/23/20 15:43 Dose: 10 ml Documented by: Sodium Chloride (Sodium Chloride 0.9% 2.5 Ml Syringe) 2.5 ml FLUSH ASDIRECTED PRN PRN Reason: Keep Vein Open Last Admin: 08/23/20 15:43 Dose: 2.5 ml Documented by: Discontinued Medications Aspirin (Aspirin 81 Mg Tab.Ec) 81 mg PO DAILY [facility] Last Admin: 08/24/20 08:54 Dose: 81 mg Documented by: Furosemide (Furosemide 40 Mg/4 Ml Vial) 20 mg IVPUSH NOW ONE Stop: 08/23/20 19:12 Last Admin: 08/23/20 19:33 Dose: 20 mg Documented by: Ceftriaxone Sodium/Dextrose 1 (gm/ Premix) 50 mls @ 100 mls/hr IV Q24H [facility] Last Admin: 08/26/20 12:21 Dose: 100 mls/hr Documented by: Iopamidol (Iopamidol 755 Mg/Ml 500 Ml Multipack Bottle) 100 ml IVPUSH ONETIME [facility] Stop: 08/23/20 18:08 Last Admin: 08/23/20 18:08 Dose: 100 ml Documented by: Non-Formulary Medication (Metoprolol Tartrate) 100 mg PO BID [facility] Ondansetron HCl (Ondansetron 4 Mg/2 Ml Sdv) 4 mg IVPUSH Q4H [facility] Last Admin: 08/24/20 02:28 Dose: Not Given Documented by: - Exam Quality Assessment: Supplemental Oxygen General: Oriented, Cooperative, No Acute Distress, Lethargic. No: Alert Lungs: Clear to Auscultation, Normal Respiratory Effort Cardiovascular: Regular Rate, Regular Rhythm GI/Abdominal Exam: Normal Bowel Sounds, Soft, Non-Tender Extremities: Limited Range of Motion, Redness, Other. No: Pedal Edema (Several skin tears noted) Skin: Warm, Moist, Other (Patient has excoriated rash in his scrotal region and cracking of skin and excoriation under his abdominal pannus) - Patient Data Lab Results Last 24 hrs: Laboratory Results - last 24 hr 08/25/20 08/25/20 08/26/20 Range/Units 13:31 17:26 04:50 WBC 11.98 H (4.0-11.0) K/uL RBC 4.83 (4.50-5.90) M/uL Hgb 14.2 (13.0-17.0) g/dL Hct 43.9 (38.0-50.0) % MCV 90.9 (80.0-98.0) fL MCH 29.4 (27.0-32.0) pg MCHC 32.3 (31.0-37.0) g/dL RDW Std Deviation 50.4 (28.0-62.0) fl RDW Coeff of Edna 15 (11.0-15.0) % Plt Count 199 (150-400) K/uL MPV 11.90 (7.40-12.00) fL Neut % (Auto) 73.3 (48.0-80.0) % Lymph % (Auto) 15.0 L (16.0-40.0) % Gonzales % (Auto) 9.4 (0.0-15.0) % Eos % (Auto) 2.1 (0.0-7.0) % Baso % (Auto) 0.2 (0.0-1.5) % Neut # (Auto) 8.8 H (1.4-5.7) K/uL Lymph # (Auto) 1.8 (0.6-2.4) K/uL Gonzales # (Auto) 1.1 H (0.0-0.8) K/uL Eos # (Auto) 0.3 (0.0-0.7) K/uL Baso # (Auto) 0.0 (0.0-0.1) K/uL Nucleated RBC % 0.0 /100WBC Nucleated RBCs # 0 K/uL Sodium (136-148) mmol/L Potassium (3.5-5.1) mmol/L Chloride (98-107) mmol/L Carbon Dioxide (21.0-32.0) mmol/L BUN (7.0-18.0) mg/dL Creatinine (0.8-1.3) mg/dL Est Cr Clr Drug Dosing mL/min Estimated GFR (MDRD) ml/min Glucose (74-106) mg/dL POC Glucose 126 H 95 (70-99) mg/dL Calcium (8.5-10.1) mg/dL Phosphorus (2.6-4.7) mg/dL Magnesium (1.8-2.4) mg/dL 08/26/20 08/26/20 Range/Units 04:50 06:33 WBC (4.0-11.0) K/uL RBC (4.50-5.90) M/uL Hgb (13.0-17.0) g/dL Hct (38.0-50.0) % MCV (80.0-98.0) fL MCH (27.0-32.0) pg MCHC (31.0-37.0) g/dL RDW Std Deviation (28.0-62.0) fl RDW Coeff of Edna (11.0-15.0) % Plt Count (150-400) K/uL MPV (7.40-12.00) fL Neut % (Auto) (48.0-80.0) % Lymph % (Auto) (16.0-40.0) % Gonzales % (Auto) (0.0-15.0) % Eos % (Auto) (0.0-7.0) % Baso % (Auto) (0.0-1.5) % Neut # (Auto) (1.4-5.7) K/uL Lymph # (Auto) (0.6-2.4) K/uL Gonzales # (Auto) (0.0-0.8) K/uL Eos # (Auto) (0.0-0.7) K/uL Baso # (Auto) (0.0-0.1) K/uL Nucleated RBC % /100WBC Nucleated RBCs # K/uL Sodium 139 (136-148) mmol/L Potassium 3.5 (3.5-5.1) mmol/L Chloride 104 (98-107) mmol/L Carbon Dioxide 29.4 (21.0-32.0) mmol/L BUN 21 H (7.0-18.0) mg/dL Creatinine 0.8 (0.8-1.3) mg/dL Est Cr Clr Drug Dosing 79.07 mL/min Estimated GFR (MDRD) > 60.0 ml/min Glucose 121 H (74-106) mg/dL POC Glucose 120 H (70-99) mg/dL Calcium 8.5 (8.5-10.1) mg/dL Phosphorus 3.4 (2.6-4.7) mg/dL Magnesium 2.1 (1.8-2.4) mg/dL Result Diagrams: 08/26/20 04:50 08/26/20 04:50 Sepsis Event Note - Evaluation Sepsis Screening Result: No Definite Risk - Focused Exam Vital Signs: Vital Signs Temp Pulse Pulse Resp BP BP Pulse Ox 08/26/20 10:48 76 100/62 08/26/20 09:00 35.9 C L 79 22 H 111/76 93 L 08/26/20 05:45 36.4 C 76 18 104/41 L 93 L 08/26/20 00:52 94 L 08/26/20 00:46 78 106/58 L 08/26/20 00:42 36.8 C 71 16 106/58 L 94 L - Problem List Review Problem List Initiated/Reviewed/Updated: Yes - My Orders Last 24 Hours: My Active Orders 08/25/20 14:32 Echo Comp wo Cont [US] Routine 08/26/20 11:14 Urinary Catheter Assessment [RC] ASDIRECTED 08/26/20 11:15 Giron Catheter Insertion [Insert Urinary Catheter] [OM.PC] Q24H 08/26/20 19:00 Levofloxacin/Dextrose 5%-Water [Levaquin in D5W 750 MG/150 ML] 750 mg Premix Bag 1 bag IV Q24H - Plan Plan:: 85-year-old male admitted for acute on chronic CHF exacerbation 1. Acute on chronic CHF exacerbation -Improving -Obtain echo, has been unavailable over the weekend -Continue Lasix twice daily -2 g low-sodium diet with 2 L fluid restriction -Daily weights strict I's and O's 2. Dysphagia - It appears on paperwork patient had refused mechanical soft diet with thickened liquids. - speech therapy consulted and noted patient definitely needs modified barium swallow. Bedside swallow he passed but had issues this morning with some choking and coughing on breakfast with nursing staff -Up to chair for all meals -Aspiration precautions. -Patient was more lethargic today due to concern of a coughing episode that he had yesterday and slight leukocytosis repeat CXR was ordered which did show right lower lobe pneumonia, will start patient on IV Levaquin 3. Hypertension/Afib/CVA -Hold antihypertensives as blood pressure is on the softer side. -Continue to monitor with aggressive diuresis for CHF. -Patient noted to only be on aspirin. [id number] score of 4 will start Eliquis 5 mg twice daily for stroke prevention. No sign of GI bleeding in history. 4- Skin excoriation/stage I pressure ulcers: Patient has excoriation of the scrotal skin which reportedly was present since admission, secondary to either pressure ulcer versus patient's urinary incontinence causing skin irritation and excoriation. Giron was ordered to prevent further skin damage but patient has refused a Giron will continue wound care as needed. Possible wound care consult if excoriation gets worse VTE prophylaxis: Eliquis 5 mg twice daily CODE STATUS: DNR/DNI Dispo: 1-2 more days continue diuresis.
[2020-08-26] MEDS: Levofloxacin/Dextrose 5%-Water 750 MG in Premix Bag 1 BAG IV SCH (15:15)
[2020-08-26] MEDS: OLANZapine 5 MG Tab PO SCH (20:24)
[2020-08-26] MEDS: Metoprolol Tartrate 25 MG Tab PO SCH (20:24)
[2020-08-27] MEDS: Nystatin Topical Powder 15 GM Bottle TOP SCH ×6 (00:28→23:27)
[2020-08-27] MEDS: Acetaminophen 500 MG Tab PO SCH ×3 (05:52→23:26)
[2020-08-27 06:17] LABS: BLOOD UREA NITROGEN,BUN 21 mg/dL (7.0-18.0); CHLORIDE,CL 103 mmol/L (98-107); GLUCOSE RANDOM 108 mg/dL (74-106); POTASSIUM,K 3.6 mmol/L (3.5-5.1); SODIUM,NA 138 mmol/L (136-148)
[2020-08-27] MEDS: Metoprolol Tartrate 25 MG Tab PO SCH ×2 (08:57→20:24)
[2020-08-27] MEDS ORDERED: Furosemide 40 MG/4 ML VIAL IVPUSH SCH (09:00)
[2020-08-27] MEDS: FLUoxetine 20 MG Cap PO SCH (09:51)
[2020-08-27] MEDS: Apixaban 5 MG Tab PO SCH ×2 (09:51→20:24)
--- NOTE | 2020-08-27 09:53 | PCM.PN ---
- General Info Date of Service: 08/27/20 Admission Dx/Problem (Free Text): Admission Diagnosis/Problem Admission Diagnosis/Problem Congestive heart failur, CAP Subjective Update: Reports he is doing well today. Denies any chest pain denies any shortness of breath. Denies any pain. Asking when he is able to go home. Urged that he should eat soft diet due to choking episodes. Will need modified barium swallow as an outpatient. Functional Status: Reports: Pain Controlled, Tolerating Diet, Urinating. Denies: Ambulating - Review of Systems General: Reports: No Symptoms. Denies: Weakness, Fatigue HEENT: Reports: No Symptoms. Denies: Sore Throat, Visual Changes Pulmonary: Reports: No Symptoms. Denies: Shortness of Breath, Cough, Sputum Cardiovascular: Reports: No Symptoms. Denies: Chest Pain, Palpitations Gastrointestinal: Reports: No Symptoms. Denies: Abdominal Pain, Nausea, Vomiting Genitourinary: Reports: No Symptoms. Denies: Dysuria, Frequency, Burning Musculoskeletal: Reports: No Symptoms Skin: Reports: No Symptoms Neurological: Reports: No Symptoms Psychiatric: Reports: No Symptoms - Patient Data Vitals - Most Recent: Last Vital Signs Temp 97.3 F 08/27/20 05:00 Pulse 76 08/27/20 05:00 Resp 20 08/27/20 05:00 BP 99/50 L 08/27/20 08:57 Pulse Ox 92 L 08/27/20 05:00 Weight - Most Recent: 103.8 kg I&O - Last 24 Hours: Intake & Output 08/26/20 08/27/20 08/27/20 22:59 06:59 14:59 Intake Total 606 340 Output Total 450 200 Balance 156 140 Lab Results Last 24 Hours: Laboratory Results - last 24 hr 08/27/20 08/27/20 Range/Units 05:25 05:25 WBC 8.31 (4.0-11.0) K/uL RBC 4.74 (4.50-5.90) M/uL Hgb 13.8 (13.0-17.0) g/dL Hct 43.1 (38.0-50.0) % MCV 90.9 (80.0-98.0) fL MCH 29.1 (27.0-32.0) pg MCHC 32.0 (31.0-37.0) g/dL RDW Std Deviation 49.8 (28.0-62.0) fl RDW Coeff of Edna 15 (11.0-15.0) % Plt Count 192 (150-400) K/uL MPV 12.10 H (7.40-12.00) fL Neut % (Auto) 65.9 (48.0-80.0) % Lymph % (Auto) 19.4 (16.0-40.0) % [place] % (Auto) 11.0 (0.0-15.0) % Eos % (Auto) 3.5 (0.0-7.0) % Baso % (Auto) 0.2 (0.0-1.5) % Neut # (Auto) 5.5 (1.4-5.7) K/uL Lymph # (Auto) 1.6 (0.6-2.4) K/uL [place] # (Auto) 0.9 H (0.0-0.8) K/uL Eos # (Auto) 0.3 (0.0-0.7) K/uL Baso # (Auto) 0.0 (0.0-0.1) K/uL Nucleated RBC % 0.0 /100WBC Nucleated RBCs # 0 K/uL Sodium 138 (136-148) mmol/L Potassium 3.6 (3.5-5.1) mmol/L Chloride 103 (98-107) mmol/L Carbon Dioxide 31.0 (21.0-32.0) mmol/L BUN 21 H (7.0-18.0) mg/dL Creatinine 0.8 (0.8-1.3) mg/dL Est Cr Clr Drug Dosing 79.07 mL/min Estimated GFR (MDRD) > 60.0 ml/min Glucose 108 H (74-106) mg/dL Calcium 8.4 L (8.5-10.1) mg/dL Phosphorus 3.3 (2.6-4.7) mg/dL Magnesium 2.0 (1.8-2.4) mg/dL Med Orders - Current: Current Medications Acetaminophen (Acetaminophen 500 Mg Tab) 500 mg PO TID [facility] Last Admin: 08/27/20 05:52 Dose: Not Given Documented by: Albuterol (Albuterol 0.083% 2.5 Mg/3 Ml Neb Soln) 2.5 mg NEB Q2H PRN PRN Reason: Shortness Of Breath/wheezing Apixaban (Apixaban 5 Mg Tab) 5 mg PO BID [facility] Last Admin: 08/27/20 09:51 Dose: 5 mg Documented by: Bisacodyl (Bisacodyl 5 Mg Tab) 10 mg .XX DAILY PRN PRN Reason: Constipation Dextrose/Water (50% Dextrose In Water 50 Ml Syringe) 50 ml IV ASDIRECTED PRN PRN Reason: Hypoglycemia Diltiazem HCl (Diltiazem 25 Mg/5 Ml Sdv) 20 mg IVPUSH Q4H PRN PRN Reason: Tachycardia Fluoxetine HCl (Fluoxetine 20 Mg Cap) 20 mg PO DAILY [facility] Last Admin: 08/27/20 09:51 Dose: 20 mg Documented by: Furosemide (Furosemide 40 Mg/4 Ml Vial) 40 mg IVPUSH DAILY [facility] Last Admin: 08/27/20 09:52 Dose: Not Given Documented by: Glucagon (Glucagon,Human Recombinant 1 Mg Vial) 1 mg IM ASDIRECTED PRN PRN Reason: Hypoglycemia Levofloxacin/Dextrose 750 mg/ (Premix) 150 mls @ 100 mls/hr IV Q24H [facility] Last Admin: 08/26/20 15:15 Dose: 100 mls/hr Documented by: Methyl Salicylate (Menthol/Methyl Salicylate 29 Gm Tube) 1 gm TOP Q12H [facility] Last Admin: 08/26/20 23:10 Dose: Not Given Documented by: Metoprolol Tartrate (Metoprolol Tartrate 25 Mg Tab) 25 mg PO BID [facility] Last Admin: 08/27/20 08:57 Dose: Not Given Documented by: Nystatin (Nystatin Topical Powder 15 Gm Bottle) 0 gm TOP QID [facility] Last Admin: 08/27/20 09:51 Dose: 1 applic Documented by: Olanzapine (Olanzapine 5 Mg Tab) 10 mg PO BEDTIME [facility] Last Admin: 08/26/20 20:24 Dose: 10 mg Documented by: Ondansetron HCl (Ondansetron 4 Mg/2 Ml Sdv) 4 mg IVPUSH Q4H PRN PRN Reason: Nausea/Vomiting Sodium Chloride (Sodium Chloride 0.9% 10 Ml Syringe) 10 ml FLUSH ASDIRECTED PRN PRN Reason: Keep Vein Open Last Admin: 08/23/20 15:43 Dose: 10 ml Documented by: Sodium Chloride (Sodium Chloride 0.9% 2.5 Ml Syringe) 2.5 ml FLUSH ASDIRECTED PRN PRN Reason: Keep Vein Open Last Admin: 08/23/20 15:43 Dose: 2.5 ml Documented by: Discontinued Medications Aspirin (Aspirin 81 Mg Tab.Ec) 81 mg PO DAILY [facility] Last Admin: 08/24/20 08:54 Dose: 81 mg Documented by: Furosemide (Furosemide 40 Mg/4 Ml Vial) 20 mg IVPUSH NOW ONE Stop: 08/23/20 19:12 Last Admin: 08/23/20 19:33 Dose: 20 mg Documented by: Furosemide (Furosemide 40 Mg/4 Ml Vial) 40 mg IVPUSH BID [facility] Last Admin: 08/26/20 10:32 Dose: 40 mg Documented by: Ceftriaxone Sodium/Dextrose 1 (gm/ Premix) 50 mls @ 100 mls/hr IV Q24H [facility] Last Admin: 08/26/20 12:21 Dose: 100 mls/hr Documented by: Insulin Aspart (Insulin Aspart 100 Units/Ml 3 Ml Pen) 0 unit SUBCUT TIDAC [facility]; Protocol Last Admin: 08/26/20 16:16 Dose: Not Given Documented by: Iopamidol (Iopamidol 755 Mg/Ml 500 Ml Multipack Bottle) 100 ml IVPUSH ONETIME STA Stop: 08/23/20 18:08 Last Admin: 08/23/20 18:08 Dose: 100 ml Documented by: Metoprolol Tartrate (Metoprolol Tartrate 50 Mg Tab) 50 mg PO Q12H [facility] Last Admin: 08/26/20 10:48 Dose: 50 mg Documented by: Non-Formulary Medication (Metoprolol Tartrate) 100 mg PO BID [facility] Ondansetron HCl (Ondansetron 4 Mg/2 Ml Sdv) 4 mg IVPUSH Q4H [facility] Last Admin: 08/24/20 02:28 Dose: Not Given Documented by: - Exam Quality Assessment: DVT Prophylaxis (Eliquis). No: Supplemental Oxygen, Urine Catheter General: Alert, Oriented, Cooperative, No Acute Distress Lungs: Crackles ( bibasilar fine crackles) Cardiovascular: Regular Rate, Regular Rhythm GI/Abdominal Exam: Normal Bowel Sounds, Soft, Non-Tender Extremities: Normal Inspection, Normal Range of Motion, Non-Tender, No Pedal Edema Wound/Incisions: Healing Well Neurological: No New Focal Deficit Psy/Mental Status: Alert, Normal Affect, Normal Mood - Patient Data Lab Results Last 24 hrs: Laboratory Results - last 24 hr 08/27/20 08/27/20 Range/Units 05:25 05:25 WBC 8.31 (4.0-11.0) K/uL RBC 4.74 (4.50-5.90) M/uL Hgb 13.8 (13.0-17.0) g/dL Hct 43.1 (38.0-50.0) % MCV 90.9 (80.0-98.0) fL MCH 29.1 (27.0-32.0) pg MCHC 32.0 (31.0-37.0) g/dL RDW Std Deviation 49.8 (28.0-62.0) fl RDW Coeff of Edna 15 (11.0-15.0) % Plt Count 192 (150-400) K/uL MPV 12.10 H (7.40-12.00) fL Neut % (Auto) 65.9 (48.0-80.0) % Lymph % (Auto) 19.4 (16.0-40.0) % [place] % (Auto) 11.0 (0.0-15.0) % Eos % (Auto) 3.5 (0.0-7.0) % Baso % (Auto) 0.2 (0.0-1.5) % Neut # (Auto) 5.5 (1.4-5.7) K/uL Lymph # (Auto) 1.6 (0.6-2.4) K/uL [place] # (Auto) 0.9 H (0.0-0.8) K/uL Eos # (Auto) 0.3 (0.0-0.7) K/uL Baso # (Auto) 0.0 (0.0-0.1) K/uL Nucleated RBC % 0.0 /100WBC Nucleated RBCs # 0 K/uL Sodium 138 (136-148) mmol/L Potassium 3.6 (3.5-5.1) mmol/L Chloride 103 (98-107) mmol/L Carbon Dioxide 31.0 (21.0-32.0) mmol/L BUN 21 H (7.0-18.0) mg/dL Creatinine 0.8 (0.8-1.3) mg/dL Est Cr Clr Drug Dosing 79.07 mL/min Estimated GFR (MDRD) > 60.0 ml/min Glucose 108 H (74-106) mg/dL Calcium 8.4 L (8.5-10.1) mg/dL Phosphorus 3.3 (2.6-4.7) mg/dL Magnesium 2.0 (1.8-2.4) mg/dL Result Diagrams: 08/27/20 05:25 08/27/20 05:25 Sepsis Event Note - Evaluation Sepsis Screening Result: No Definite Risk - Focused Exam Vital Signs: Vital Signs Temp Pulse Resp BP Pulse Ox 08/27/20 08:57 99/50 L 08/27/20 05:00 97.3 F 76 20 134/68 92 L 08/27/20 00:26 97.2 F 73 19 118/73 95 - Problem List & Annotations (1) Acute exacerbation of congestive heart failure SNOMED Code(s): 706172057, 57348199979719 Code(s): I50.9 - HEART FAILURE, UNSPECIFIED Status: Acute Current Visit: Yes Qualifiers: Heart failure type: unspecified Qualified Code(s): I50.9 - Heart failure, unspecified (2) Dyspnea SNOMED Code(s): 790130380 Code(s): R06.00 - DYSPNEA, UNSPECIFIED Status: Acute Current Visit: Yes Qualifiers: Dyspnea type: unspecified Qualified Code(s): R06.00 - Dyspnea, unspecified (3) Dementia SNOMED Code(s): 65996867 Code(s): F03.90 - UNSPECIFIED DEMENTIA WITHOUT BEHAVIORAL DISTURBANCE St atus: Acute Current Visit: No Qualifiers: Dementia type: unspecified type Dementia behavioral disturbance: without behavioral disturbance Qualified Code(s): F03.90 - Unspecified dementia without behavioral disturbance (4) Afib SNOMED Code(s): 62404117 Code(s): I48.91 - UNSPECIFIED ATRIAL FIBRILLATION Status: Chronic Current Visit: No Qualifiers: Atrial fibrillation type: chronic (5) CHF (congestive heart failure) SNOMED Code(s): 14736809 Code(s): I50.9 - HEART FAILURE, UNSPECIFIED Status: Chronic Priority: Low Current Visit: No (6) History of CVA (cerebrovascular accident) SNOMED Code(s): 074653167 Code(s): Z86.73 - PRSNL HX OF TIA (TIA), AND CEREB INFRC W/O RESID DEFICITS Status: Chronic Current Visit: No (7) Hypertension SNOMED Code(s): 62525738 Code(s): I10 - ESSENTIAL (PRIMARY) HYPERTENSION Status: Chronic Priority: Low Current Visit: No (8) Pneumonia SNOMED Code(s): 088542437 Code(s): J18.9 - PNEUMONIA, UNSPECIFIED ORGANISM Status: Acute Priority: High Current Visit: No Qualifiers: Pneumonia type: due to unspecified organism Laterality: unspecified laterality Lung location: unspecified part of lung Qualified Code(s): J18.9 - Pneumonia, unspecified organism - Problem List Review Problem List Initiated/Reviewed/Updated: Yes - Plan Plan:: 85-year-old male admitted for acute on chronic CHF exacerbation 1. Acute on chronic CHF exacerbation -Improving -Echo pending -Lasix decreased to once daily blood pressure lower this morning on hold today. - we will start Lasix 40 p.o. twice daily tomorrow -2 g low-sodium diet with 2 L fluid restriction -Daily weights strict I's and O's 2. Dysphagia -Had another choking episode chest x-ray showed possible right lower lobe pneumonia -Continue Levaquin leukocytosis improved today - speech therapy consulted and noted patient definitely needs modified barium swallow. Bedside swallow he passed but had issues this morning with some choking and coughing on breakfast with nursing staff -Up to chair for all meals -Aspiration precautions. 3. Hypertension/Afib/CVA -Metoprolol dose decreased to 25 mg twice daily -Continue to monitor with aggressive diuresis for CHF. -[id number] score of 4 will start Eliquis 5 mg twice daily for stroke prevention. 4- Skin excoriation/stage I pressure ulcers: -Continue nystatin showing steady improvement as nurses are working diligently to keep area dry from urinary incontinence -Patient has refused Giron p VTE prophylaxis: Eliquis 5 mg twice daily CODE STATUS: DNR/DNI Dispo: Likely back to [facility] in a.m.
[2020-08-27] MEDS: Menthol/Methyl Salicylate 29 GM Tube TOP SCH ×2 (12:32→23:27)
[2020-08-27] MEDS: Levofloxacin/Dextrose 5%-Water 750 MG in Premix Bag 1 BAG IV SCH (16:03)
[2020-08-27] MEDS: OLANZapine 5 MG Tab PO SCH (20:23)
[2020-08-28] MEDS: Nystatin Topical Powder 15 GM Bottle TOP SCH ×2 (05:30→12:30)
[2020-08-28 06:21] LABS: BLOOD UREA NITROGEN,BUN 19 mg/dL (7.0-18.0); CARBON DIOXIDE,CO2 29.6 mmol/L (21.0-32.0); CHLORIDE,CL 106 mmol/L (98-107); GLUCOSE RANDOM 98 mg/dL (74-106); POTASSIUM,K 3.9 mmol/L (3.5-5.1); SODIUM,NA 143 mmol/L (136-148)
[2020-08-28] MEDS: Acetaminophen 500 MG Tab PO SCH ×2 (08:02→14:06)
[2020-08-28] MEDS: Apixaban 5 MG Tab PO SCH (09:11)
[2020-08-28] MEDS: FLUoxetine 20 MG Cap PO SCH (09:11)
[2020-08-28] MEDS: Metoprolol Tartrate 25 MG Tab PO SCH (09:11)
[2020-08-28] MEDS: Furosemide 40 MG Tab PO SCH ×2 (09:11→14:06)
[2020-08-28] MEDS: Menthol/Methyl Salicylate 29 GM Tube TOP SCH (12:30)
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
[2020-08-28 13:23] VITALS: BP 119/76; PULSE 72
--- NOTE | 2020-08-30 16:26 | ECHO ---
EXAM DATE: 08/26/20 PATIENT'S AGE: 85 The ECHO report has been scanned into [employer] and can be seen in this patient's EMR (Electronic Medical Record) under the REPORTS section. The report has also been scanned into PACS. SEVERIANO
== END 2020-08-28 14:30 | DRG 291 ==
LOC: MW.ED 14:54 → MW.MS 19:12 → OBSVTOIN 08-26 13:00
PROVIDERS: ADMIT Student in an Organized Health Care Education/Training Program; ATTEND Student in an Organized Health Care Education/Training Program
DX: I11.0 Hypertensive heart disease with heart failure (principal); R06.00 Dyspnea, unspecified; J18.9 Pneumonia, unspecified organism; F03.90 Unspecified dementia, unspecified severity, without behavioral disturbance, psychotic disturbance, mood disturbance, and anxiety; I50.9 Heart failure, unspecified; Z66 Do not resuscitate; I48.91 Unspecified atrial fibrillation; L89.899 Pressure ulcer of other site, unspecified stage; B37.9 Candidiasis, unspecified; L30.9 Dermatitis, unspecified; R32 Unspecified urinary incontinence; Z96.641 Presence of right artificial hip joint; E11.9 Type 2 diabetes mellitus without complications; K80.20 Calculus of gallbladder without cholecystitis without obstruction; H54.7 Unspecified visual loss; M19.90 Unspecified osteoarthritis, unspecified site; Z20.822 Contact with and (suspected) exposure to COVID-19; R13.10 Dysphagia, unspecified; F32.9 Major depressive disorder, single episode, unspecified; Z90.89 Acquired absence of other organs; Z79.01 Long term (current) use of anticoagulants; Z79.82 Long term (current) use of aspirin; Z86.73 Personal history of transient ischemic attack (TIA), and cerebral infarction without residual deficits; Z79.899 Other long term (current) drug therapy
CPT/HCPCS: 0240U; 36415; 71045; 71275; 80048; 80053; 81003; 82947; 83036; 83735; 83880; 84100; 84484; 85025; 92526; 92610; 93005; 93306; 99285; A9270-GY; J0696; J1940; J1956; Q9967; U0002

== ENCOUNTER 2020-10-28 14:12 | Inpatient (IN) | payer MEDICARE, BC, MEDICAID ==
--- NOTE | 2020-10-28 14:14 | EDM.PDOC ---
ED HPI GENERAL MEDICAL PROBLEM - General Stated Complaint: SHORT OF BREATHE Time Seen by Provider: 10/28/20 14:13 Source of Information: Reports: Patient, Residential Records History Limitations: Reports: No Limitations - History of Present Illness INITIAL COMMENTS - FREE TEXT/NARRATIVE: 85-year-old male past medical history CHF on 40 mg of Lasix twice daily, A. fib on Eliquis, diabetes, dementia presents for cough and shortness of breath. Per [facility] report patient was noted to be hypoxic to 83% on room air this morning. Patient does not wear oxygen at baseline. He was put on 2 L nasal ca nnula oxygen and monitor throughout the day. He has noted worsening cough and shortness of breath throughout the day. Patient is a very poor historian likely secondary to dementia. He has AAO x3 but does not provide a good history of what happened today. He keeps saying that they brought him here because of "the accident" he cannot elaborate on what this accident was. He states he currently does not feel short of breath. He does note that he has had a cough but cannot tell me for how long. - Related Data Allergies Allergy/AdvReac Type Severity Reaction Status Date / Time No Known Allergies Allergy Verified 10/28/20 14:53 Home Meds: Home Meds Aspirin [Adult Low Dose Aspirin EC] 81 mg PO DAILY 09/29/13 [History] Furosemide [Lasix] 40 mg PO BID 09/29/13 [History] Multivitamin [Multivitamins] 1 each PO DAILY 09/29/13 [History] bisacodyL [Laxative] 10 mg RC DAILY PRN 09/29/13 [History] FLUoxetine HCl [Prozac] 20 mg PO DAILY 08/23/20 [History] OLANZapine [ZyPREXA] 10 mg PO BEDTIME 08/23/20 [History] Potassium Chloride [Klor-Con M20] 20 meq PO BID 08/23/20 [History] Losartan Potassium 50 mg PO DAILY #0 08/27/20 [Rx] Metoprolol Tartrate [Lopressor] 25 mg PO BID #30 tablet 08/27/20 [Rx] Nystatin [Nystop] 100,000 units TOP QID #1 bottle 08/27/20 [Rx] levoFLOXacin [Levaquin] 750 mg PO DAILY #12 tab 08/27/20 [Rx] Acetaminophen 500 mg PO ASDIRECTED 10/28/20 [History] Past Medical History HEENT History: Reports: Impaired Vision Cardiovascular History: Reports: Heart Failure, Hypertension Genitourinary History: Reports: Other (See Below) Other Genitourinary History: incont urine Musculoskeletal History: Reports: Arthritis Other Musculoskeletal History: fx hip as teenager Neurological History: Reports: CVA Psychiatric History: Reports: Depression - Infectious Disease History Infectious Disease History: Reports: Chicken Pox, Measles, Mumps - Past Surgical History HEENT Surgical History: Reports: Tonsillectomy Musculoskeletal Surgical History: Reports: Hip Replacement Other Musculoskeletal Surgeries/Procedures:: right hip replaced. Social & Family History - Family History Family Medical History: No Pertinent Family History Cardiac: Reports: [place] Neurological: Reports: CVA - Caffeine Use Caffeine Use: Reports: None ED ROS GENERAL - Review of Systems Review Of Systems: Comprehensive ROS is negative, except as noted in HPI. ED EXAM, GENERAL - Physical Exam Exam: See Below Exam Limited By: No Limitations General Appearance: Alert, WD/WN, No Apparent Distress Ears: Hearing Grossly Normal Throat/Mouth: Normal Voice, No Airway Compromise, Perioral Cyanosis Head: Atraumatic, Normocephalic Neck: Normal Inspection Respiratory/Chest: No Respiratory Distress, Lungs Clear, Normal Breath Sounds, No Accessory Muscle Use Cardiovascular: Normal Peripheral Pulses, Regular Rate, Rhythm, No Edema, Other (b/l lower extremity pitting edema) GI/Abdominal: Soft, Non-Tender Extremities: Normal Inspection Neurological: Alert, Oriented Psychiatric: Normal Affect, Normal Mood Skin Exam: Warm, Dry, Intact, Pallor #1 Interpretation EKG Date: 10/28/20 Time: 15:20 Rhythm: A-Fib Rate (Beats/Min): 85 [place]: Normal QRS: Normal ST-T: Normal QT: Normal EKG Interpretation Comments: Known Afib; no ischemic changes Course - Vital Signs Last Recorded V/S: Last Vital Signs Temp 97.4 F 10/28/20 14:53 Pulse 88 10/28/20 14:53 Resp 20 10/28/20 14:53 BP 108/56 L 10/28/20 14:53 Pulse Ox 92 L 10/28/20 14:53 - Orders/Labs/Meds Orders: Active Orders 24 hr Category Date Time Status Patient Status [ADT] Routine ADT 10/28/20 16:58 Ordered Cardiac Monitoring [RC] . DIRECTED Care 10/28/20 14:57 Active EKG Documentation Completion [RC] STAT Care 10/28/20 14:57 Active Pulse Oximetry [RC] ASDIRECTED Care 10/28/20 14:57 Active CULTURE BLOOD [BC] Stat Lab 10/28/20 16:57 Ordered CULTURE BLOOD [BC] Stat Lab 10/28/20 16:57 Ordered D-DIMER QUANTITATIVE [COAG] Stat Lab 10/28/20 15:40 Received UA W/VERONIKA RFLX IF INDICATED [URIN] Stat Lab 10/28/20 14:58 Ordered Azithromycin [Zithromax] 500 mg Med 10/28/20 17:00 Active Sodium Chloride 0.9% [Normal Saline (AdvBag)] 250 ml IV ONETIME Sodium Chloride 0.9% [Saline Flush] Med 10/28/20 14:57 Active 10 ml FLUSH ASDIRECTED PRN Sodium Chloride 0.9% [Saline Flush] Med 10/28/20 14:57 Active 2.5 ml FLUSH ASDIRECTED PRN Blood Culture x2 Reflex Set [OM.PC] Stat Oth 10/28/20 16:57 Ordered Saline Lock Insert [OM.PC] Stat Oth 10/28/20 14:57 Ordered Medication Orders Azithromycin 500 mg/ Sodium (Chloride) 250 mls @ 250 mls/hr IV ONETIME JACKIE Sodium Chloride (Sodium Chloride 0.9% 10 Ml Syringe) 10 ml FLUSH ASDIRECTED PRN PRN Reason: Keep Vein Open Last Admin: 10/28/20 15:55 Dose: 10 ml Documented by: CHIKI Sodium Chloride (Sodium Chloride 0.9% 2.5 Ml Syringe) 2.5 ml FLUSH ASDIRECTED PRN PRN Reason: Keep Vein Open Last Admin: 10/28/20 15:55 Dose: 2.5 ml Documented by: CHIKI Labs: Laboratory Tests 10/28/20 10/28/20 10/28/20 Range/Units 15:40 15:40 15:40 WBC 11.72 H (4.0-11.0) K/uL RBC 4.90 (4.50-5.90) M/uL Hgb 14.4 (13.0-17.0) g/dL Hct 44.3 (38.0-50.0) % MCV 90.4 (80.0-98.0) fL MCH 29.4 (27.0-32.0) pg MCHC 32.5 (31.0-37.0) g/dL RDW Std Deviation 45.7 (28.0-62.0) fl RDW Coeff of Edna 14 (11.0-15.0) % Plt Count 201 (150-400) K/uL MPV 11.40 (7.40-12.00) fL Neut % (Auto) 81.3 H (48.0-80.0) % Lymph % (Auto) 10.6 L (16.0-40.0) % [place] % (Auto) 6.7 (0.0-15.0) % Eos % (Auto) 1.2 (0.0-7.0) % Baso % (Auto) 0.2 (0.0-1.5) % Neut # (Auto) 9.5 H (1.4-5.7) K/uL Lymph # (Auto) 1.2 (0.6-2.4) K/uL [place] # (Auto) 0.8 (0.0-0.8) K/uL Eos # (Auto) 0.1 (0.0-0.7) K/uL Baso # (Auto) 0.0 (0.0-0.1) K/uL Nucleated RBC % 0.0 /100WBC Nucleated RBCs # 0 K/uL ABG pH (7.35-7.45) ABG pCO2 (35-45) mmHG ABG pO2 (80-105) mmHG ABG HCO3 (22-26) mEq/L ABG Total CO2 (23-27) mmol/L ABG Base Excess (-2.0-3.0) Sodium 141 (136-148) mmol/L Potassium 4.4 (3.5-5.1) mmol/L Chloride 106 (98-107) mmol/L Carbon Dioxide 32.3 H (21.0-32.0) mmol/L BUN 29 H (7.0-18.0) mg/dL Creatinine 0.9 (0.8-1.3) mg/dL Est Cr Clr Drug Dosing 68.26 mL/min Estimated GFR (MDRD) > 60.0 ml/min Glucose 118 H (74-106) mg/dL Lactic Acid 1.6 (0.4-2.0) mmol/L Calcium 8.7 (8.5-10.1) mg/dL Magnesium 2.1 (1.8-2.4) mg/dL Total Bilirubin 0.4 (0.2-1.0) mg/dL AST 16 (15-37) IU/L ALT 14 (14-63) IU/L Alkaline Phosphatase 64 (46-116) U/L Troponin I < 0.050 (0.000-0.056) ng/mL B-Natriuretic Peptide (<100) PG/ML Total Protein 7.5 (6.4-8.2) g/dL Albumin 3.0 L (3.4-5.0) g/dL Globulin 4.5 H (2.6-4.0) g/dL Albumin/Globulin Ratio 0.7 L (0.9-1.6) 10/28/20 10/28/20 Range/Units 15:40 15:44 WBC (4.0-11.0) K/uL RBC (4.50-5.90) M/uL Hgb (13.0-17.0) g/dL Hct (38.0-50.0) % MCV (80.0-98.0) fL MCH (27.0-32.0) pg MCHC (31.0-37.0) g/dL RDW Std Deviation (28.0-62.0) fl RDW Coeff of Edna (11.0-15.0) % Plt Count (150-400) K/uL MPV (7.40-12.00) fL Neut % (Auto) (48.0-80.0) % Lymph % (Auto) (16.0-40.0) % [place] % (Auto) (0.0-15.0) % Eos % (Auto) (0.0-7.0) % Baso % (Auto) (0.0-1.5) % Neut # (Auto) (1.4-5.7) K/uL Lymph # (Auto) (0.6-2.4) K/uL [place] # (Auto) (0.0-0.8) K/uL Eos # (Auto) (0.0-0.7) K/uL Baso # (Auto) (0.0-0.1) K/uL Nucleated RBC % /100WBC Nucleated RBCs # K/uL ABG pH 7.40 (7.35-7.45) ABG pCO2 51 H (35-45) mmHG ABG pO2 68 L (80-105) mmHG ABG HCO3 31 H (22-26) mEq/L ABG Total CO2 27.6 H (23-27) mmol/L ABG Base Excess 5.0 H (-2.0-3.0) Sodium (136-148) mmol/L Potassium (3.5-5.1) mmol/L Chloride (98-107) mmol/L Carbon Dioxide (21.0-32.0) mmol/L BUN (7.0-18.0) mg/dL Creatinine (0.8-1.3) mg/dL Est Cr Clr Drug Dosing mL/min Estimated GFR (MDRD) ml/min Glucose (74-106) mg/dL Lactic Acid (0.4-2.0) mmol/L Calcium (8.5-10.1) mg/dL Magnesium (1.8-2.4) mg/dL Total Bilirubin (0.2-1.0) mg/dL AST (15-37) IU/L ALT (14-63) IU/L Alkaline Phosphatase (46-116) U/L Troponin I (0.000-0.056) ng/mL B-Natriuretic Peptide 153 H (<100) PG/ML Total Protein (6.4-8.2) g/dL Albumin (3.4-5.0) g/dL Globulin (2.6-4.0) g/dL Albumin/Globulin Ratio (0.9-1.6) Meds: Medications Generic Name Dose Route Start Last Admin Trade Name Freq PRN Reason Stop Dose Admin Azithromycin 500 mg/ Sodium 250 mls @ 250 mls/hr 10/28/20 17:00 Chloride IV ONETIME JACKIE Sodium Chloride 10 ml 10/28/20 14:57 10/28/20 15:55 Sodium Chloride 0.9% 10 Ml Syringe FLUSH 10 ml ASDIRECTED PRN Administration Keep Vein Open Sodium Chloride 2.5 ml 10/28/20 14:57 10/28/20 15:55 Sodium Chloride 0.9% 2.5 Ml Syringe FLUSH 2.5 ml ASDIRECTED PRN Administration Keep Vein Open Discontinued Medications Generic Name Dose Route Start Last Admin Trade Name Dana PRN Reason Stop Dose Admin Ceftriaxone Sodium 1 gm 10/28/20 16:56 Ceftriaxone 1 Gm Vial IVPUSH 10/28/20 16:57 ONETIME ONE Furosemide 60 mg 10/28/20 15:13 10/28/20 15:50 Furosemide 20 Mg/2 Ml Vial IVPUSH 10/28/20 15:14 60 mg ONETIME ONE Administration - Re-Assessments/Exams Free Text/Narrative Re-Assessment/Exam: 10/28/20 15:09 Patient presents with hypoxia. Will get labs, chest x-ray, ABG. Patient is on supplemental oxygen at 4 L and has improvement in color and O2 saturations to 94%. 10/28/20 16:58 Labs remarkable for mild leukocytosis to 11. Chest x-ray shows bibasilar atelectasis versus infiltrates. Will treat for pneumonia although clinical suspicion for pneumonia is rather low. Patient symptoms are likely more related to CHF. Lasix was given. Departure - Departure Time of Disposition: 16:59 Disposition: Admitted As Inpatient 68 Condition: Good, Fair Clinical Impression: CHF (congestive heart failure) Qualifiers: Heart failure type: unspecified Heart failure chronicity: acute Qualified Code(s): I50.9 - Heart failure, unspecified - Discharge Information Referrals: PCP,None [Primary Care Provider] - Sepsis Event Note (ED) - Focused Exam Vital Signs: Vital Signs Temp Pulse Resp BP Pulse Ox 10/28/20 14:53 97.4 F 88 20 108/56 L 92 L - My Orders Last 24 Hours: My Active Orders 10/28/20 14:57 Cardiac Monitoring [RC] . DIRECTED EKG Documentation Completion [RC] STAT Pulse Oximetry [RC] ASDIRECTED Sodium Chloride 0.9% [Saline Flush] 10 ml FLUSH ASDIRECTED PRN Sodium Chloride 0.9% [Saline Flush] 2.5 ml FLUSH ASDIRECTED PRN Saline Lock Insert [OM.PC] Stat 10/28/20 14:58 UA W/VERONIKA RFLX IF INDICATED [URIN] Stat 10/28/20 15:40 D-DIMER QUANTITATIVE [COAG] Stat 10/28/20 16:57 CULTURE BLOOD [BC] Stat CULTURE BLOOD [BC] Stat Blood Culture x2 Reflex Set [OM.PC] Stat 10/28/20 16:58 Patient Status [ADT] Routine 10/28/20 17:00 Azithromycin [Zithromax] 500 mg Sodium Chloride 0.9% [Normal Saline (AdvBag)] 250 ml IV ONETIME - Assessment/Plan Last 24 Hours: My Active Orders 10/28/20 14:57 Cardiac Monitoring [RC] . DIRECTED EKG Documentation Completion [RC] STAT Pulse Oximetry [RC] ASDIRECTED Sodium Chloride 0.9% [Saline Flush] 10 ml FLUSH ASDIRECTED PRN Sodium Chloride 0.9% [Saline Flush] 2.5 ml FLUSH ASDIRECTED PRN Saline Lock Insert [OM.PC] Stat 10/28/20 14:58 UA W/VERONIKA RFLX IF INDICATED [URIN] Stat 10/28/20 15:40 D-DIMER QUANTITATIVE [COAG] Stat 10/28/20 16:57 CULTURE BLOOD [BC] Stat CULTURE BLOOD [BC] Stat Blood Culture x2 Reflex Set [OM.PC] Stat 10/28/20 16:58 Patient Status [ADT] Routine 10/28/20 17:00 Azithromycin [Zithromax] 500 mg Sodium Chloride 0.9% [Normal Saline (AdvBag)] 250 ml IV ONETIME
[2020-10-28] MEDS ORDERED: Sodium Chloride 0.9% 10 ML Syringe FLUSH PRN (14:57)
[2020-10-28] MEDS ORDERED: Sodium Chloride 0.9% 2.5 ML Syringe FLUSH PRN (14:57)
[2020-10-28] MEDS ORDERED: Furosemide 20 MG/2 ML VIAL IVPUSH ONE ×2 (14:58→15:13)
--- NOTE | 2020-10-28 15:36 | CR ---
Indication: Shortness of breath. CHF. Technique: AP portable view of the chest. Comparison: August 26, 2020. Findings: The heart is borderline in size. Increased interstitial opacities are identified bilaterally, technical versus true pathology. No focal infiltrate, pleural effusion, or pneumothorax is identified. Impression: Mild increased interstitial opacities bilaterally, which may be due to lack of complete inspiration. Dictated by Steffi Chand MD @ 10/28/2020 3:34:[address] Steffi Chand @ Oct 28 2020 3:34PM
[2020-10-28 16:14] LABS: BLOOD UREA NITROGEN,BUN 29 mg/dL (7.0-18.0); CARBON DIOXIDE,CO2 32.3 mmol/L (21.0-32.0); CHLORIDE,CL 106 mmol/L (98-107); GLUCOSE RANDOM 118 mg/dL (74-106); POTASSIUM,K 4.4 mmol/L (3.5-5.1); SODIUM,NA 141 mmol/L (136-148)
[2020-10-28] MEDS ORDERED: cefTRIAXone 1 GM Vial IVPUSH ONE (16:56)
[2020-10-28] MEDS ORDERED: Azithromycin 500 MG in Sodium Chloride 0.9% 250 ML IV SCH (17:00)
[2020-10-28] MEDS ORDERED: Azithromycin 500 MG in Sodium Chloride 0.9% 250 ML IV ONE (17:00)
[2020-10-28] MEDS ORDERED: cefTRIAXone 1 GM in Premix Bag 1 BAG IV ONE (17:03)
--- NOTE | 2020-10-28 17:24 | PCM.HP.2 ---
H&P History of Present Illness - General Date of Service: 10/28/20 Admit Problem/Dx: Admission Diagnosis/Problem Admission Diagnosis/Problem CHF, Congestive heart failure Source of Information: Family, Long-Term Records History Limitations: Reports: Other (Dementia) - History of Present Illness Initial Comments - Free Text/Narative: 85-year-old male with past medical history of CHF, hypertension, atrial fibrillation on Eliquis, diabetes mellitus and dementia [facility] with complaints of cough and shortness of breath. Patient has baseline dementia and is difficult to obtain history from. Patient is on Lasix 40 mg twice daily. At the prison patient was hypoxic, 83% on room air earlier today. Started on nasal cannula 2 L. Patient continued to have shortness of breath and worsening cough. No sick contacts or recent travel. ER course: EKG showed atrial fibrillation, no ischemic changes. Temperature 97.4. Pulse 88. Respiratory rate 20. Blood pressure 108 56. Pulse ox 94% on 4L NC. Blood cultures x2. WBC 11.7. Hgb 14.4. Sodium 141. Potassium 4.4. Chloride 106. Bicarbonate 32.3. BUN 29. Creatinine 0.9. Glucose 118. Lactic acid 1.6. ABG pH: 7.4, pCO2 51. pO2 68. HCO3 31. BNP 153. Patient received azithromycin 500 mg. Ceftriaxone 1gm. Lasix 60mg x1. CXR: bibasilar atelectasis vs infiltrates. CODE STATUS: DNR/DNI (documentation from prison) - Related Data Allergies/Adverse Reactions: Allergies Allergy/AdvReac Type Severity Reaction Status Date / Time No Known Allergies Allergy Verified 10/28/20 14:53 Home Medications: Home Meds Aspirin [Adult Low Dose Aspirin EC] 81 mg PO DAILY 09/29/13 [History] Furosemide [Lasix] 40 mg PO BID 09/29/13 [History] Multivitamin [Multivitamins] 1 each PO DAILY 09/29/13 [History] bisacodyL [Laxative] 10 mg RC DAILY PRN 09/29/13 [History] FLUoxetine HCl [Prozac] 20 mg PO DAILY 08/23/20 [History] OLANZapine [ZyPREXA] 10 mg PO BEDTIME 08/23/20 [History] Potassium Chloride [Klor-Con M20] 20 meq PO BID 08/23/20 [History] Losartan Potassium 50 mg PO DAILY #0 08/27/20 [Rx] Metoprolol Tartrate [Lopressor] 25 mg PO BID #30 tablet 08/27/20 [Rx] Nystatin [Nystop] 100,000 units TOP QID #1 bottle 08/27/20 [Rx] levoFLOXacin [Levaquin] 750 mg PO DAILY #12 tab 08/27/20 [Rx] Acetaminophen 500 mg PO ASDIRECTED 10/28/20 [History] Past Medical History HEENT History: Reports: Impaired Vision Cardiovascular History: Reports: Heart Failure, Hypertension Genitourinary History: Reports: Other (See Below) Other Genitourinary History: incont urine Musculoskeletal History: Reports: Arthritis Other Musculoskeletal History: fx hip as teenager Neurological History: Reports: CVA Psychiatric History: Reports: Depression - Infectious Disease History Infectious Disease History: Reports: Chicken Pox, Measles, Mumps - Past Surgical History HEENT Surgical History: Reports: Tonsillectomy Musculoskeletal Surgical History: Reports: Hip Replacement Other Musculoskeletal Surgeries/Procedures:: right hip replaced. Social & Family History - Family History Family Medical History: No Pertinent Family History Cardiac: Reports: [place] Neurological: Reports: CVA - Tobacco Use Tobacco Use Status *Q: Never Tobacco User - Caffeine Use Caffeine Use: Reports: None - Recreational Drug Use Recreational Drug Use: No H&P Review of Systems - Review of Systems: Review Of Systems: See Below General: Denies: Fever, Chills, Night Sweats HEENT: Reports: Sore Throat. Denies: Ear Pain, Headaches, Rhinitis Pulmonary: Reports: Shortness of Breath, Cough, Sputum. Denies: Wheezing, Pleuritic Chest Pain Cardiovascular: Reports: Edema. Denies: Chest Pain, Palpitations, Dyspnea on Exertion, Orthopnea, Syncope Gastrointestinal: Denies: Abdominal Pain, Black Stool, Bloody Stool, Constipation, Diarrhea, Hematemesis, Hematochezia, Melena, Nausea, Vomiting Genitourinary: Denies: Dysuria, Frequency, Burning, Pain Musculoskeletal: Reports: No Symptoms Skin: Reports: No Symptoms Psychiatric: Reports: Confusion Neurological: Denies: Dizziness, Headache Hematologic/Lymphatic: Reports: No Symptoms Exam - Exam Exam: See Below - Vital Signs Vital Signs: Last Vital Signs Temp 97.4 F 10/28/20 14:53 Pulse 88 10/28/20 14:53 Resp 20 10/28/20 14:53 BP 108/56 L 10/28/20 14:53 Pulse Ox 92 L 10/28/20 14:53 Weight: 253 lb 8.505 oz - Exam Quality Assessment: Supplemental Oxygen General: Alert, Cooperative, Other (Baseline dementia. Patient confused about date and the year.) HEENT: Conjunctiva Clear, EOMI, Posterior Pharynx Clear Neck: Supple. No: JVD Lungs: Decreased Breath Sounds Cardiovascular: Regular Rate, Regular Rhythm, Normal S1, Normal S2 GI/Abdominal Exam: Normal Bowel Sounds, Soft, Non-Tender. No: Guarding, Tender Extremities: Non-Tender, Pedal Edema. No: Joint Swelling, Svitlana's Sign, Leg Pain Peripheral Pulses: 2+: Dorsalis Pedis (L), Dorsalis Pedis (R) Skin: Warm, Dry, Intact Neurological: Strength Equal Bilateral, Normal Speech. No: Focal Deficit Neuro Extensive - Mental Status: Alert, Disorientation to Time - Patient Data Lab Results Last 24 hrs: Laboratory Results - last 24 hr 10/28/20 10/28/20 10/28/20 Range/Units 15:40 15:40 15:40 WBC 11.72 H (4.0-11.0) K/uL RBC 4.90 (4.50-5.90) M/uL Hgb 14.4 (13.0-17.0) g/dL Hct 44.3 (38.0-50.0) % MCV 90.4 (80.0-98.0) fL MCH 29.4 (27.0-32.0) pg MCHC 32.5 (31.0-37.0) g/dL RDW Std Deviation 45.7 (28.0-62.0) fl RDW Coeff of Edna 14 (11.0-15.0) % Plt Count 201 (150-400) K/uL MPV 11.40 (7.40-12.00) fL Neut % (Auto) 81.3 H (48.0-80.0) % Lymph % (Auto) 10.6 L (16.0-40.0) % [place] % (Auto) 6.7 (0.0-15.0) % Eos % (Auto) 1.2 (0.0-7.0) % Baso % (Auto) 0.2 (0.0-1.5) % Neut # (Auto) 9.5 H (1.4-5.7) K/uL Lymph # (Auto) 1.2 (0.6-2.4) K/uL [place] # (Auto) 0.8 (0.0-0.8) K/uL Eos # (Auto) 0.1 (0.0-0.7) K/uL Baso # (Auto) 0.0 (0.0-0.1) K/uL Nucleated RBC % 0.0 /100WBC Nucleated RBCs # 0 K/uL ABG pH (7.35-7.45) ABG pCO2 (35-45) mmHG ABG pO2 (80-105) mmHG ABG HCO3 (22-26) mEq/L ABG Total CO2 (23-27) mmol/L ABG Base Excess (-2.0-3.0) Sodium 141 (136-148) mmol/L Potassium 4.4 (3.5-5.1) mmol/L Chloride 106 (98-107) mmol/L Carbon Dioxide 32.3 H (21.0-32.0) mmol/L BUN 29 H (7.0-18.0) mg/dL Creatinine 0.9 (0.8-1.3) mg/dL Est Cr Clr Drug Dosing 68.26 mL/min Estimated GFR (MDRD) > 60.0 ml/min Glucose 118 H (74-106) mg/dL Lactic Acid 1.6 (0.4-2.0) mmol/L Calcium 8.7 (8.5-10.1) mg/dL Magnesium 2.1 (1.8-2.4) mg/dL Total Bilirubin 0.4 (0.2-1.0) mg/dL AST 16 (15-37) IU/L ALT 14 (14-63) IU/L Alkaline Phosphatase 64 (46-116) U/L Troponin I < 0.050 (0.000-0.056) ng/mL B-Natriuretic Peptide (<100) PG/ML Total Protein 7.5 (6.4-8.2) g/dL Albumin 3.0 L (3.4-5.0) g/dL Globulin 4.5 H (2.6-4.0) g/dL Albumin/Globulin Ratio 0.7 L (0.9-1.6) 10/28/20 10/28/20 Range/Units 15:40 15:44 WBC (4.0-11.0) K/uL RBC (4.50-5.90) M/uL Hgb (13.0-17.0) g/dL Hct (38.0-50.0) % MCV (80.0-98.0) fL MCH (27.0-32.0) pg MCHC (31.0-37.0) g/dL RDW Std Deviation (28.0-62.0) fl RDW Coeff of Edna (11.0-15.0) % Plt Count (150-400) K/uL MPV (7.40-12.00) fL Neut % (Auto) (48.0-80.0) % Lymph % (Auto) (16.0-40.0) % [place] % (Auto) (0.0-15.0) % Eos % (Auto) (0.0-7.0) % Baso % (Auto) (0.0-1.5) % Neut # (Auto) (1.4-5.7) K/uL Lymph # (Auto) (0.6-2.4) K/uL [place] # (Auto) (0.0-0.8) K/uL Eos # (Auto) (0.0-0.7) K/uL Baso # (Auto) (0.0-0.1) K/uL Nucleated RBC % /100WBC Nucleated RBCs # K/uL ABG pH 7.40 (7.35-7.45) ABG pCO2 51 H (35-45) mmHG ABG pO2 68 L (80-105) mmHG ABG HCO3 31 H (22-26) mEq/L ABG Total CO2 27.6 H (23-27) mmol/L ABG Base Excess 5.0 H (-2.0-3.0) Sodium (136-148) mmol/L Potassium (3.5-5.1) mmol/L Chloride (98-107) mmol/L Carbon Dioxide (21.0-32.0) mmol/L BUN (7.0-18.0) mg/dL Creatinine (0.8-1.3) mg/dL Est Cr Clr Drug Dosing mL/min Estimated GFR (MDRD) ml/min Glucose (74-106) mg/dL Lactic Acid (0.4-2.0) mmol/L Calcium (8.5-10.1) mg/dL Magnesium (1.8-2.4) mg/dL Total Bilirubin (0.2-1.0) mg/dL AST (15-37) IU/L ALT (14-63) IU/L Alkaline Phosphatase (46-116) U/L Troponin I (0.000-0.056) ng/mL B-Natriuretic Peptide 153 H (<100) PG/ML Total Protein (6.4-8.2) g/dL Albumin (3.4-5.0) g/dL Globulin (2.6-4.0) g/dL Albumin/Globulin Ratio (0.9-1.6) Result Diagrams: 10/28/20 15:40 10/28/20 15:40 Sepsis Event Note - Evaluation Sepsis Screening Result: No Definite Risk - Focused Exam Vital Signs: Vital Signs Temp Pulse Resp BP Pulse Ox 10/28/20 14:53 97.4 F 88 20 108/56 L 92 L - Problem List (1) Atrial fibrillation SNOMED Code(s): 89089733 ICD Code: I48.91 - UNSPECIFIED ATRIAL FIBRILLATION Status: Chronic Current Visit: Yes (2) Acute exacerbation of congestive heart failure SNOMED Code(s): 515760088, 71170307862678 ICD Code: I50.9 - HEART FAILURE, UNSPECIFIED Status: Acute Current Visit: Yes Qualifiers: Heart failure type: unspecified Qualified Code(s): I50.9 - Heart failure, unspecified (3) Dementia SNOMED Code(s): 43011142 ICD Code: F03.90 - UNSPECIFIED DEMENTIA WITHOUT BEHAVIORAL DISTURBANCE Status: Chronic Current Visit: Yes Qualifiers: Dementia type: unspecified type Dementia behavioral disturbance: without behavioral disturbance Qualified Code(s): F03.90 - Unspecified dementia without behavioral disturbance (4) Pneumonia SNOMED Code(s): 089196462 ICD Code: J18.9 - PNEUMONIA, UNSPECIFIED ORGANISM Status: Acute Priority: High Current Visit: Yes Qualifiers: Qualified Code(s): J18.9 - Pneumonia, unspecified organism Problem List Initiated/Reviewed/Updated: Yes Orders Last 24hrs: Active Orders 24 hr Category Date Time Status Patient Status [ADT] Routine ADT 10/28/20 17:00 Active Cardiac Monitoring [RC] . DIRECTED Care 10/28/20 14:57 Active EKG Documentation Completion [RC] STAT Care 10/28/20 14:57 Active Pulse Oximetry [RC] ASDIRECTED Care 10/28/20 14:57 Active CULTURE BLOOD [BC] Stat Lab 10/28/20 16:57 Ordered CULTURE BLOOD [BC] Stat Lab 10/28/20 16:57 Ordered D-DIMER QUANTITATIVE [COAG] Stat Lab 10/28/20 15:40 Received UA W/VERONIKA RFLX IF INDICATED [URIN] Stat Lab 10/28/20 14:58 Ordered Azithromycin [Zithromax] 500 mg Med 10/28/20 17:00 Active Sodium Chloride 0.9% [Normal Saline (AdvBag)] 250 ml IV ONETIME Sodium Chloride 0.9% [Saline Flush] Med 10/28/20 14:57 Active 10 ml FLUSH ASDIRECTED PRN Sodium Chloride 0.9% [Saline Flush] Med 10/28/20 14:57 Active 2.5 ml FLUSH ASDIRECTED PRN cefTRIAXone [Rocephin in Dextrose,Iso-Osm 1 GM/50 ML] 1 Med 10/28/20 17:03 Active gm Premix Bag 1 bag IV ONETIME Blood Culture x2 Reflex Set [OM.PC] Stat Oth 10/28/20 16:57 Ordered Saline Lock Insert [OM.PC] Stat Oth 10/28/20 14:57 Ordered Medication Orders Azithromycin 500 mg/ Sodium (Chloride) 250 mls @ 250 mls/hr IV ONETIME JACKIE Ceftriaxone Sodium/Dextrose 1 (gm/ Premix) 50 mls @ 100 mls/hr IV ONETIME ONE Stop: 10/28/20 17:32 Sodium Chloride (Sodium Chloride 0.9% 10 Ml Syringe) 10 ml FLUSH ASDIRECTED PRN PRN Reason: Keep Vein Open Last Admin: 10/28/20 15:55 Dose: 10 ml Documented by: CHIKI Sodium Chloride (Sodium Chloride 0.9% 2.5 Ml Syringe) 2.5 ml FLUSH ASDIRECTED PRN PRN Reason: Keep Vein Open Last Admin: 10/28/20 15:55 Dose: 2.5 ml Documented by: BLANMEG Assessment/Plan Comment:: 85-year-old male with multiple admissions for CHF presents with increased oxygen requirements, currently on 4 L and an elevated WBC. Patient is being admitted for CHF exacerbation and pneumonia. Patient received Lasix 60 mg in the ER. Will resume the patient on Lasix 40 mg twice daily, starting tomorrow morning. Supplemental oxygen as needed. We will continue the patient on azithromycin 500 mg and ceftriaxone 1 g. Follow CBC. DuoNebs every 4 hours as needed. Tessalon Perles 200 mg for cough as needed. Blood cultures pending. We will order urine strep and Legionella and procalcitonin level. Diet: Cardiac diet. Fluid restriction.
[2020-10-28] MEDS ORDERED: Benzonatate 100 MG Cap PO ONE (17:37)
[2020-10-28] MEDS ORDERED: Albuterol/Ipratropium 3.0-0.5 MG/3 ML Neb Soln NEB PRN (18:06)
[2020-10-28] MEDS ORDERED: Polyethylene Glycol 3350 Powder 17 GM Packet PO PRN (18:06)
[2020-10-28] MEDS ORDERED: Benzonatate 100 MG Cap PO PRN (18:25)
[2020-10-28] MEDS ORDERED: Potassium Chloride 20 MEQ Tab.ER PO SCH (18:30)
[2020-10-28] MEDS ORDERED: Metoprolol Tartrate 5 MG/5 ML SDV IVPUSH ONE (20:04)
[2020-10-28] MEDS: Metoprolol Tartrate 25 MG Tab PO SCH (21:17)
[2020-10-28] MEDS: OLANZapine 5 MG Tab PO SCH (21:18)
[2020-10-29] MEDS ORDERED: Iopamidol 755 Mg/ML 100 ML Bottle IVPUSH ONE (00:36)
--- NOTE | 2020-10-29 01:43 | CT ---
INDICATION: Hypoxia TECHNIQUE: CT chest pulmonary PE protocol acquired with 100 cc Isovue 370 IV contrast. COMPARISON: August 23, 2020 FINDINGS: Cardiovascular structures: Images are limited by patient motion artifact. Although no large central pulmonary embolism is seen, the remainder of the pulmonary arterial tree cannot be adequately evaluated with this exam. Heart size is normal. Coronary artery calcifications. No sign of aneurysm or dissection in the thoracic aorta. Mediastinum and ady: No mass or adenopathy. Lungs: Patchy opacity in the left lower lobe. Pleura and pericardium: No effusions. Chest wall and axilla: No mass or adenopathy. Upper abdomen: Cholelithiasis. Bones: Old T10 and T11 compression fractures. IMPRESSION: Images are limited by patient motion artifact. Although no large central pulmonary embolism is seen, the remainder of the pulmonary arterial tree cannot be adequately evaluated with this exam. Patchy opacity in the left lower lobe may represent infection or atelectasis. Coronary artery disease. Cholelithiasis. Please note that all CT scans at this facility use dose modulation, iterative reconstruction, and/or weight-based dosing when appropriate to reduce radiation dose to as low as reasonably achievable. Dictated by Luz Elena Mei MD @ 10/29/2020 1:41:[address] Luz Elena Mei @ Oct 29 2020 1:41AM
[2020-10-29 06:37] LABS: BLOOD UREA NITROGEN,BUN 27 mg/dL (7.0-18.0); CARBON DIOXIDE,CO2 32.4 mmol/L (21.0-32.0); CHLORIDE,CL 105 mmol/L (98-107); GLUCOSE RANDOM 109 mg/dL (74-106); POTASSIUM,K 3.9 mmol/L (3.5-5.1); SODIUM,NA 140 mmol/L (136-148)
[2020-10-29] MEDS ORDERED: Losartan 50 MG Tab PO SCH (09:00)
[2020-10-29] MEDS: Metoprolol Tartrate 25 MG Tab PO SCH ×2 (10:11→22:21)
[2020-10-29] MEDS: FLUoxetine 20 MG Cap PO SCH (10:12)
[2020-10-29] MEDS ORDERED: Nystatin Topical Powder 15 GM Bottle TOP PRN (10:27)
--- NOTE | 2020-10-29 14:22 | PCM.PN ---
- General Info Date of Service: 10/29/20 Admission Dx/Problem (Free Text): Admission Diagnosis/Problem Admission Diagnosis/Problem CHF, Congestive heart failure Subjective Update: 85-year-old male with a history of atrial fibrillation and multiple strokes is admitted for CHF exacerbation and pneumonia. Of note, patient is actually not on Eliquis. I spoke to his daughter today who clarify his history. Patient is currently being treated with azithromycin and ceftriaxone. Patient was made n.p.o. last night due to aspiration risk. Patient will be put back on a soft mechanical nectar thick diet. This morning he appears tired. Patient is agitated. No cough or shortness of breath. He remains on 4 L. - Review of Systems General: Reports: Other (Unable to obtain due to dementia and fatigue.) - Patient Data Vitals - Most Recent: Last Vital Signs Temp 97.7 F 10/29/20 12:00 Pulse 90 10/29/20 12:00 Resp 16 10/29/20 12:00 BP 128/80 10/29/20 12:00 Pulse Ox 94 L 10/29/20 12:00 Weight - Most Recent: 253 lb 8.505 oz I&O - Last 24 Hours: Intake & Output 10/28/20 10/29/20 10/29/20 22:59 06:59 14:59 Intake Total 360 Balance 360 Lab Results Last 24 Hours: Laboratory Results - last 24 hr 10/28/20 10/28/20 10/28/20 Range/Units 15:40 15:40 15:40 WBC 11.72 H (4.0-11.0) K/uL RBC 4.90 (4.50-5.90) M/uL Hgb 14.4 (13.0-17.0) g/dL Hct 44.3 (38.0-50.0) % MCV 90.4 (80.0-98.0) fL MCH 29.4 (27.0-32.0) pg MCHC 32.5 (31.0-37.0) g/dL RDW Std Deviation 45.7 (28.0-62.0) fl RDW Coeff of Edna 14 (11.0-15.0) % Plt Count 201 (150-400) K/uL MPV 11.40 (7.40-12.00) fL Neut % (Auto) 81.3 H (48.0-80.0) % Lymph % (Auto) 10.6 L (16.0-40.0) % Howell % (Auto) 6.7 (0.0-15.0) % Eos % (Auto) 1.2 (0.0-7.0) % Baso % (Auto) 0.2 (0.0-1.5) % Neut # (Auto) 9.5 H (1.4-5.7) K/uL Lymph # (Auto) 1.2 (0.6-2.4) K/uL Howell # (Auto) 0.8 (0.0-0.8) K/uL Eos # (Auto) 0.1 (0.0-0.7) K/uL Baso # (Auto) 0.0 (0.0-0.1) K/uL Nucleated RBC % 0.0 /100WBC Nucleated RBCs # 0 K/uL D-Dimer, Quantitative (0.0-0.50) mg/L FEU ABG pH (7.35-7.45) ABG pCO2 (35-45) mmHG ABG pO2 (80-105) mmHG ABG HCO3 (22-26) mEq/L ABG Total CO2 (23-27) mmol/L ABG Base Excess (-2.0-3.0) Sodium 141 (136-148) mmol/L Potassium 4.4 (3.5-5.1) mmol/L Chloride 106 (98-107) mmol/L Carbon Dioxide 32.3 H (21.0-32.0) mmol/L BUN 29 H (7.0-18.0) mg/dL Creatinine 0.9 (0.8-1.3) mg/dL Est Cr Clr Drug Dosing 68.26 mL/min Estimated GFR (MDRD) > 60.0 ml/min Glucose 118 H (74-106) mg/dL POC Glucose (70-99) mg/dL Lactic Acid 1.6 (0.4-2.0) mmol/L Calcium 8.7 (8.5-10.1) mg/dL Phosphorus (2.6-4.7) mg/dL Magnesium 2.1 (1.8-2.4) mg/dL Total Bilirubin 0.4 (0.2-1.0) mg/dL AST 16 (15-37) IU/L ALT 14 (14-63) IU/L Alkaline Phosphatase 64 (46-116) U/L Troponin I < 0.050 (0.000-0.056) ng/mL B-Natriuretic Peptide (<100) PG/ML Total Protein 7.5 (6.4-8.2) g/dL Albumin 3.0 L (3.4-5.0) g/dL Globulin 4.5 H (2.6-4.0) g/dL Albumin/Globulin Ratio 0.7 L (0.9-1.6) 10/28/20 10/28/20 10/28/20 Range/Units 15:40 15:40 15:44 WBC (4.0-11.0) K/uL RBC (4.50-5.90) M/uL Hgb (13.0-17.0) g/dL Hct (38.0-50.0) % MCV (80.0-98.0) fL MCH (27.0-32.0) pg MCHC (31.0-37.0) g/dL RDW Std Deviation (28.0-62.0) fl RDW Coeff of Edna (11.0-15.0) % Plt Count (150-400) K/uL MPV (7.40-12.00) fL Neut % (Auto) (48.0-80.0) % Lymph % (Auto) (16.0-40.0) % Howell % (Auto) (0.0-15.0) % Eos % (Auto) (0.0-7.0) % Baso % (Auto) (0.0-1.5) % Neut # (Auto) (1.4-5.7) K/uL Lymph # (Auto) (0.6-2.4) K/uL Howell # (Auto) (0.0-0.8) K/uL Eos # (Auto) (0.0-0.7) K/uL Baso # (Auto) (0.0-0.1) K/uL Nucleated RBC % /100WBC Nucleated RBCs # K/uL D-Dimer, Quantitative 3.00 H (0.0-0.50) mg/L FEU ABG pH 7.40 (7.35-7.45) ABG pCO2 51 H (35-45) mmHG ABG pO2 68 L (80-105) mmHG ABG HCO3 31 H (22-26) mEq/L ABG Total CO2 27.6 H (23-27) mmol/L ABG Base Excess 5.0 H (-2.0-3.0) Sodium (136-148) mmol/L Potassium (3.5-5.1) mmol/L Chloride (98-107) mmol/L Carbon Dioxide (21.0-32.0) mmol/L BUN (7.0-18.0) mg/dL Creatinine (0.8-1.3) mg/dL Est Cr Clr Drug Dosing mL/min Estimated GFR (MDRD) ml/min Glucose (74-106) mg/dL POC Glucose (70-99) mg/dL Lactic Acid (0.4-2.0) mmol/L Calcium (8.5-10.1) mg/dL Phosphorus (2.6-4.7) mg/dL Magnesium (1.8-2.4) mg/dL Total Bilirubin (0.2-1.0) mg/dL AST (15-37) IU/L ALT (14-63) IU/L Alkaline Phosphatase (46-116) U/L Troponin I (0.000-0.056) ng/mL B-Natriuretic Peptide 153 H (<100) PG/ML Total Protein (6.4-8.2) g/dL Albumin (3.4-5.0) g/dL Globulin (2.6-4.0) g/dL Albumin/Globulin Ratio (0.9-1.6) 10/29/20 10/29/20 10/29/20 Range/Units 06:05 06:05 06:58 WBC 11.64 H (4.0-11.0) K/uL RBC 4.72 (4.50-5.90) M/uL Hgb 13.8 (13.0-17.0) g/dL Hct 42.3 (38.0-50.0) % MCV 89.6 (80.0-98.0) fL MCH 29.2 (27.0-32.0) pg MCHC 32.6 (31.0-37.0) g/dL RDW Std Deviation 45.9 (28.0-62.0) fl RDW Coeff of Edna 14 (11.0-15.0) % Plt Count 190 (150-400) K/uL MPV 11.10 (7.40-12.00) fL Neut % (Auto) 74.4 (48.0-80.0) % Lymph % (Auto) 16.2 (16.0-40.0) % Howell % (Auto) 7.1 (0.0-15.0) % Eos % (Auto) 2.1 (0.0-7.0) % Baso % (Auto) 0.2 (0.0-1.5) % Neut # (Auto) 8.7 H (1.4-5.7) K/uL Lymph # (Auto) 1.9 (0.6-2.4) K/uL Howell # (Auto) 0.8 (0.0-0.8) K/uL Eos # (Auto) 0.2 (0.0-0.7) K/uL Baso # (Auto) 0.0 (0.0-0.1) K/uL Nucleated RBC % 0.0 /100WBC Nucleated RBCs # 0 K/uL D-Dimer, Quantitative (0.0-0.50) mg/L FEU ABG pH (7.35-7.45) ABG pCO2 (35-45) mmHG ABG pO2 (80-105) mmHG ABG HCO3 (22-26) mEq/L ABG Total CO2 (23-27) mmol/L ABG Base Excess (-2.0-3.0) Sodium 140 (136-148) mmol/L Potassium 3.9 (3.5-5.1) mmol/L Chloride 105 (98-107) mmol/L Carbon Dioxide 32.4 H (21.0-32.0) mmol/L BUN 27 H (7.0-18.0) mg/dL Creatinine 0.8 (0.8-1.3) mg/dL Est Cr Clr Drug Dosing 76.79 mL/min Estimated GFR (MDRD) > 60.0 ml/min Glucose 109 H (74-106) mg/dL POC Glucose 116 H (70-99) mg/dL Lactic Acid (0.4-2.0) mmol/L Calcium 8.1 L (8.5-10.1) mg/dL Phosphorus 4.1 (2.6-4.7) mg/dL Magnesium 2.2 (1.8-2.4) mg/dL Total Bilirubin 0.5 (0.2-1.0) mg/dL AST 18 (15-37) IU/L ALT 11 L (14-63) IU/L Alkaline Phosphatase 57 (46-116) U/L Troponin I (0.000-0.056) ng/mL B-Natriuretic Peptide (<100) PG/ML Total Protein 7.0 (6.4-8.2) g/dL Albumin 2.8 L (3.4-5.0) g/dL Globulin 4.2 H (2.6-4.0) g/dL Albumin/Globulin Ratio 0.7 L (0.9-1.6) 10/29/20 Range/Units 12:00 WBC (4.0-11.0) K/uL RBC (4.50-5.90) M/uL Hgb (13.0-17.0) g/dL Hct (38.0-50.0) % MCV (80.0-98.0) fL MCH (27.0-32.0) pg MCHC (31.0-37.0) g/dL RDW Std Deviation (28.0-62.0) fl RDW Coeff of Edna (11.0-15.0) % Plt Count (150-400) K/uL MPV (7.40-12.00) fL Neut % (Auto) (48.0-80.0) % Lymph % (Auto) (16.0-40.0) % Howell % (Auto) (0.0-15.0) % Eos % (Auto) (0.0-7.0) % Baso % (Auto) (0.0-1.5) % Neut # (Auto) (1.4-5.7) K/uL Lymph # (Auto) (0.6-2.4) K/uL Howell # (Auto) (0.0-0.8) K/uL Eos # (Auto) (0.0-0.7) K/uL Baso # (Auto) (0.0-0.1) K/uL Nucleated RBC % /100WBC Nucleated RBCs # K/uL D-Dimer, Quantitative (0.0-0.50) mg/L FEU ABG pH (7.35-7.45) ABG pCO2 (35-45) mmHG ABG pO2 (80-105) mmHG ABG HCO3 (22-26) mEq/L ABG Total CO2 (23-27) mmol/L ABG Base Excess (-2.0-3.0) Sodium (136-148) mmol/L Potassium (3.5-5.1) mmol/L Chloride (98-107) mmol/L Carbon Dioxide (21.0-32.0) mmol/L BUN (7.0-18.0) mg/dL Creatinine (0.8-1.3) mg/dL Est Cr Clr Drug Dosing mL/min Estimated GFR (MDRD) ml/min Glucose (74-106) mg/dL POC Glucose 103 H (70-99) mg/dL Lactic Acid (0.4-2.0) mmol/L Calcium (8.5-10.1) mg/dL Phosphorus (2.6-4.7) mg/dL Magnesium (1.8-2.4) mg/dL Total Bilirubin (0.2-1.0) mg/dL AST (15-37) IU/L ALT (14-63) IU/L Alkaline Phosphatase (46-116) U/L Troponin I (0.000-0.056) ng/mL B-Natriuretic Peptide (<100) PG/ML Total Protein (6.4-8.2) g/dL Albumin (3.4-5.0) g/dL Globulin (2.6-4.0) g/dL Albumin/Globulin Ratio (0.9-1.6) Med Orders - Current: Current Medications Albuterol/Ipratropium (Albuterol/Ipratropium 3.0-0.5 Mg/3 Ml Neb Soln) 3 ml NEB Q4HRRT PRN PRN Reason: Shortness Of Breath/wheezing Benzonatate (Benzonatate 100 Mg Cap) 200 mg PO Q8H PRN PRN Reason: Cough Fluoxetine HCl (Fluoxetine 20 Mg Cap) 20 mg PO DAILY JACKIE Last Admin: 10/29/20 10:12 Dose: Not Given Documented by: Ceftriaxone Sodium/Dextrose 1 (gm/ Premix) 50 mls @ 100 mls/hr IV Q24H JACKIE Azithromycin 500 mg/ Sodium (Chloride) 250 mls @ 250 mls/hr IV Q24H JACKIE Losartan Potassium (Losartan 50 Mg Tab) 50 mg PO DAILY [facility] Last Admin: 10/29/20 10:10 Dose: Not Given Documented by: Metoprolol Tartrate (Metoprolol Tartrate 25 Mg Tab) 25 mg PO BID [facility] Last Admin: 10/29/20 10:11 Dose: Not Given Documented by: Nystatin (Nystatin Topical Powder 15 Gm Bottle) 0 gm TOP QID PRN PRN Reason: Itching Last Admin: 10/29/20 11:13 Dose: 1 applic Documented by: Olanzapine (Olanzapine 5 Mg Tab) 10 mg PO BEDTIME [facility] Last Admin: 10/28/20 21:18 Dose: Not Given Documented by: Polyethylene Glycol (Polyethylene Glycol 3350 Powder 17 Gm Packet) 17 gm PO DAILY PRN PRN Reason: Constipation Sodium Chloride (Sodium Chloride 0.9% 10 Ml Syringe) 10 ml FLUSH ASDIRECTED PRN PRN Reason: Keep Vein Open Last Admin: 10/28/20 15:55 Dose: 10 ml Documented by: Sodium Chloride (Sodium Chloride 0.9% 2.5 Ml Syringe) 2.5 ml FLUSH ASDIRECTED PRN PRN Reason: Keep Vein Open Last Admin: 10/28/20 15:55 Dose: 2.5 ml Documented by: Discontinued Medications Benzonatate (Benzonatate 100 Mg Cap) 200 mg PO ONETIME ONE Stop: 10/28/20 17:38 Last Admin: 10/28/20 18:00 Dose: 200 mg Documented by: Furosemide (Furosemide 20 Mg/2 Ml Vial) 60 mg IVPUSH ONETIME ONE Stop: 10/28/20 15:14 Last Admin: 10/28/20 15:50 Dose: 60 mg Documented by: Azithromycin 500 mg/ Sodium (Chloride) 250 mls @ 250 mls/hr IV ONETIME JACKIE Ceftriaxone Sodium/Dextrose 1 (gm/ Premix) 50 mls @ 100 mls/hr IV ONETIME ONE Stop: 10/28/20 17:32 Last Admin: 10/28/20 17:57 Dose: 100 mls/hr Documented by: Azithromycin 500 mg/ Sodium (Chloride) 250 mls @ 250 mls/hr IV ONETIME ONE Stop: 10/28/20 17:59 Last Admin: 10/28/20 19:39 Dose: 250 mls/hr Documented by: Iopamidol (Iopamidol 755 Mg/Ml 100 Ml Bottle) 100 ml IVPUSH ONETIME ONE Stop: 10/29/20 00:37 Last Admin: 10/29/20 00:51 Dose: 100 ml Documented by: Metoprolol Tartrate (Metoprolol Tartrate 5 Mg/5 Ml Sdv) 5 mg IVPUSH ONETIME ONE Stop: 10/28/20 20:36 Last Admin: 10/28/20 21:07 Dose: 5 mg Documented by: Potassium Chloride (Potassium Chloride 20 Meq Tab.Er) 20 meq PO BIDMEALS JACKIE Last Admin: 10/28/20 21:19 Dose: Not Given Documented by: - Exam General: No Acute Distress. No: Oriented Neck: Supple, No JVD Lungs: Decreased Breath Sounds. No: Crackles Cardiovascular: Regular Rate, No Murmurs GI/Abdominal Exam: Soft, Non-Tender Extremities: Pedal Edema Peripheral Pulses: 2+: Dorsalis Pedis (L), Dorsalis Pedis (R) Skin: Other (Right anterior phelan chronic stasis ulcer) - Patient Data Lab Results Last 24 hrs: Laboratory Results - last 24 hr 10/28/20 10/28/20 10/28/20 Range/Units 15:40 15:40 15:40 WBC 11.72 H (4.0-11.0) K/uL RBC 4.90 (4.50-5.90) M/uL Hgb 14.4 (13.0-17.0) g/dL Hct 44.3 (38.0-50.0) % MCV 90.4 (80.0-98.0) fL MCH 29.4 (27.0-32.0) pg MCHC 32.5 (31.0-37.0) g/dL RDW Std Deviation 45.7 (28.0-62.0) fl RDW Coeff of Edna 14 (11.0-15.0) % Plt Count 201 (150-400) K/uL MPV 11.40 (7.40-12.00) fL Neut % (Auto) 81.3 H (48.0-80.0) % Lymph % (Auto) 10.6 L (16.0-40.0) % Howell % (Auto) 6.7 (0.0-15.0) % Eos % (Auto) 1.2 (0.0-7.0) % Baso % (Auto) 0.2 (0.0-1.5) % Neut # (Auto) 9.5 H (1.4-5.7) K/uL Lymph # (Auto) 1.2 (0.6-2.4) K/uL Howell # (Auto) 0.8 (0.0-0.8) K/uL Eos # (Auto) 0.1 (0.0-0.7) K/uL Baso # (Auto) 0.0 (0.0-0.1) K/uL Nucleated RBC % 0.0 /100WBC Nucleated RBCs # 0 K/uL D-Dimer, Quantitative (0.0-0.50) mg/L FEU ABG pH (7.35-7.45) ABG pCO2 (35-45) mmHG ABG pO2 (80-105) mmHG ABG HCO3 (22-26) mEq/L ABG Total CO2 (23-27) mmol/L ABG Base Excess (-2.0-3.0) Sodium 141 (136-148) mmol/L Potassium 4.4 (3.5-5.1) mmol/L Chloride 106 (98-107) mmol/L Carbon Dioxide 32.3 H (21.0-32.0) mmol/L BUN 29 H (7.0-18.0) mg/dL Creatinine 0.9 (0.8-1.3) mg/dL Est Cr Clr Drug Dosing 68.26 mL/min Estimated GFR (MDRD) > 60.0 ml/min Glucose 118 H (74-106) mg/dL POC Glucose (70-99) mg/dL Lactic Acid 1.6 (0.4-2.0) mmol/L Calcium 8.7 (8.5-10.1) mg/dL Phosphorus (2.6-4.7) mg/dL Magnesium 2.1 (1.8-2.4) mg/dL Total Bilirubin 0.4 (0.2-1.0) mg/dL AST 16 (15-37) IU/L ALT 14 (14-63) IU/L Alkaline Phosphatase 64 (46-116) U/L Troponin I < 0.050 (0.000-0.056) ng/mL B-Natriuretic Peptide (<100) PG/ML Total Protein 7.5 (6.4-8.2) g/dL Albumin 3.0 L (3.4-5.0) g/dL Globulin 4.5 H (2.6-4.0) g/dL Albumin/Globulin Ratio 0.7 L (0.9-1.6) 10/28/20 10/28/20 10/28/20 Range/Units 15:40 15:40 15:44 WBC (4.0-11.0) K/uL RBC (4.50-5.90) M/uL Hgb (13.0-17.0) g/dL Hct (38.0-50.0) % MCV (80.0-98.0) fL MCH (27.0-32.0) pg MCHC (31.0-37.0) g/dL RDW Std Deviation (28.0-62.0) fl RDW Coeff of Edna (11.0-15.0) % Plt Count (150-400) K/uL MPV (7.40-12.00) fL Neut % (Auto) (48.0-80.0) % Lymph % (Auto) (16.0-40.0) % Howell % (Auto) (0.0-15.0) % Eos % (Auto) (0.0-7.0) % Baso % (Auto) (0.0-1.5) % Neut # (Auto) (1.4-5.7) K/uL Lymph # (Auto) (0.6-2.4) K/uL Howell # (Auto) (0.0-0.8) K/uL Eos # (Auto) (0.0-0.7) K/uL Baso # (Auto) (0.0-0.1) K/uL Nucleated RBC % /100WBC Nucleated RBCs # K/uL D-Dimer, Quantitative 3.00 H (0.0-0.50) mg/L FEU ABG pH 7.40 (7.35-7.45) ABG pCO2 51 H (35-45) mmHG ABG pO2 68 L (80-105) mmHG ABG HCO3 31 H (22-26) mEq/L ABG Total CO2 27.6 H (23-27) mmol/L ABG Base Excess 5.0 H (-2.0-3.0) Sodium (136-148) mmol/L Potassium (3.5-5.1) mmol/L Chloride (98-107) mmol/L Carbon Dioxide (21.0-32.0) mmol/L BUN (7.0-18.0) mg/dL Creatinine (0.8-1.3) mg/dL Est Cr Clr Drug Dosing mL/min Estimated GFR (MDRD) ml/min Glucose (74-106) mg/dL POC Glucose (70-99) mg/dL Lactic Acid (0.4-2.0) mmol/L Calcium (8.5-10.1) mg/dL Phosphorus (2.6-4.7) mg/dL Magnesium (1.8-2.4) mg/dL Total Bilirubin (0.2-1.0) mg/dL AST (15-37) IU/L ALT (14-63) IU/L Alkaline Phosphatase (46-116) U/L Troponin I (0.000-0.056) ng/mL B-Natriuretic Peptide 153 H (<100) PG/ML Total Protein (6.4-8.2) g/dL Albumin (3.4-5.0) g/dL Globulin (2.6-4.0) g/dL Albumin/Globulin Ratio (0.9-1.6) 10/29/20 10/29/20 10/29/20 Range/Units 06:05 06:05 06:58 WBC 11.64 H (4.0-11.0) K/uL RBC 4.72 (4.50-5.90) M/uL Hgb 13.8 (13.0-17.0) g/dL Hct 42.3 (38.0-50.0) % MCV 89.6 (80.0-98.0) fL MCH 29.2 (27.0-32.0) pg MCHC 32.6 (31.0-37.0) g/dL RDW Std Deviation 45.9 (28.0-62.0) fl RDW Coeff of Edna 14 (11.0-15.0) % Plt Count 190 (150-400) K/uL MPV 11.10 (7.40-12.00) fL Neut % (Auto) 74.4 (48.0-80.0) % Lymph % (Auto) 16.2 (16.0-40.0) % Howell % (Auto) 7.1 (0.0-15.0) % Eos % (Auto) 2.1 (0.0-7.0) % Baso % (Auto) 0.2 (0.0-1.5) % Neut # (Auto) 8.7 H (1.4-5.7) K/uL Lymph # (Auto) 1.9 (0.6-2.4) K/uL Howell # (Auto) 0.8 (0.0-0.8) K/uL Eos # (Auto) 0.2 (0.0-0.7) K/uL Baso # (Auto) 0.0 (0.0-0.1) K/uL Nucleated RBC % 0.0 /100WBC Nucleated RBCs # 0 K/uL D-Dimer, Quantitative (0.0-0.50) mg/L FEU ABG pH (7.35-7.45) ABG pCO2 (35-45) mmHG ABG pO2 (80-105) mmHG ABG HCO3 (22-26) mEq/L ABG Total CO2 (23-27) mmol/L ABG Base Excess (-2.0-3.0) Sodium 140 (136-148) mmol/L Potassium 3.9 (3.5-5.1) mmol/L Chloride 105 (98-107) mmol/L Carbon Dioxide 32.4 H (21.0-32.0) mmol/L BUN 27 H (7.0-18.0) mg/dL Creatinine 0.8 (0.8-1.3) mg/dL Est Cr Clr Drug Dosing 76.79 mL/min Estimated GFR (MDRD) > 60.0 ml/min Glucose 109 H (74-106) mg/dL POC Glucose 116 H (70-99) mg/dL Lactic Acid (0.4-2.0) mmol/L Calcium 8.1 L (8.5-10.1) mg/dL Phosphorus 4.1 (2.6-4.7) mg/dL Magnesium 2.2 (1.8-2.4) mg/dL Total Bilirubin 0.5 (0.2-1.0) mg/dL AST 18 (15-37) IU/L ALT 11 L (14-63) IU/L Alkaline Phosphatase 57 (46-116) U/L Troponin I (0.000-0.056) ng/mL B-Natriuretic Peptide (<100) PG/ML Total Protein 7.0 (6.4-8.2) g/dL Albumin 2.8 L (3.4-5.0) g/dL Globulin 4.2 H (2.6-4.0) g/dL Albumin/Globulin Ratio 0.7 L (0.9-1.6) 10/29/20 Range/Units 12:00 WBC (4.0-11.0) K/uL RBC (4.50-5.90) M/uL Hgb (13.0-17.0) g/dL Hct (38.0-50.0) % MCV (80.0-98.0) fL MCH (27.0-32.0) pg MCHC (31.0-37.0) g/dL RDW Std Deviation (28.0-62.0) fl RDW Coeff of Edna (11.0-15.0) % Plt Count (150-400) K/uL MPV (7.40-12.00) fL Neut % (Auto) (48.0-80.0) % Lymph % (Auto) (16.0-40.0) % Howell % (Auto) (0.0-15.0) % Eos % (Auto) (0.0-7.0) % Baso % (Auto) (0.0-1.5) % Neut # (Auto) (1.4-5.7) K/uL Lymph # (Auto) (0.6-2.4) K/uL Howell # (Auto) (0.0-0.8) K/uL Eos # (Auto) (0.0-0.7) K/uL Baso # (Auto) (0.0-0.1) K/uL Nucleated RBC % /100WBC Nucleated RBCs # K/uL D-Dimer, Quantitative (0.0-0.50) mg/L FEU ABG pH (7.35-7.45) ABG pCO2 (35-45) mmHG ABG pO2 (80-105) mmHG ABG HCO3 (22-26) mEq/L ABG Total CO2 (23-27) mmol/L ABG Base Excess (-2.0-3.0) Sodium (136-148) mmol/L Potassium (3.5-5.1) mmol/L Chloride (98-107) mmol/L Carbon Dioxide (21.0-32.0) mmol/L BUN (7.0-18.0) mg/dL Creatinine (0.8-1.3) mg/dL Est Cr Clr Drug Dosing mL/min Estimated GFR (MDRD) ml/min Glucose (74-106) mg/dL POC Glucose 103 H (70-99) mg/dL Lactic Acid (0.4-2.0) mmol/L Calcium (8.5-10.1) mg/dL Phosphorus (2.6-4.7) mg/dL Magnesium (1.8-2.4) mg/dL Total Bilirubin (0.2-1.0) mg/dL AST (15-37) IU/L ALT (14-63) IU/L Alkaline Phosphatase (46-116) U/L Troponin I (0.000-0.056) ng/mL B-Natriuretic Peptide (<100) PG/ML Total Protein (6.4-8.2) g/dL Albumin (3.4-5.0) g/dL Globulin (2.6-4.0) g/dL Albumin/Globulin Ratio (0.9-1.6) Result Diagrams: 10/29/20 06:05 10/29/20 06:05 Sepsis Event Note - Evaluation Sepsis Screening Result: No Definite Risk - Focused Exam Vital Signs: Vital Signs Temp Pulse Pulse Resp BP BP Pulse Ox 10/29/20 12:00 97.7 F 90 16 128/80 94 L 10/29/20 10:11 80 100/62 10/29/20 10:10 100/62 10/29/20 08:00 97.4 F 80 16 100/62 92 L 10/29/20 04:00 97.9 F 80 18 94/51 L 95 - Problem List & Annotations (1) Atrial fibrillation SNOMED Code(s): 52923229 Code(s): I48.91 - UNSPECIFIED ATRIAL FIBRILLATION Status: Chronic Current Visit: No (2) Acute exacerbation of congestive heart failure SNOMED Code(s): 609468519, 43121529349830 Code(s): I50.9 - HEART FAILURE, UNSPECIFIED Status: Acute Current Visit: No Qualifiers: Heart failure type: unspecified Qualified Code(s): I50.9 - Heart failure, unspecified (3) Dementia SNOMED Code(s): 56060711 Code(s): F03.90 - UNSPECIFIED DEMENTIA WITHOUT BEHAVIORAL DISTURBANCE Status: Chronic Current Visit: No Qualifiers: Dementia type: unspecified type Dementia behavioral disturbance: without behavioral disturbance Qualified Code(s): F03.90 - Unspecified dementia without behavioral disturbance (4) Pneumonia SNOMED Code(s): 908257537 Code(s): J18.9 - PNEUMONIA, UNSPECIFIED ORGANISM Status: Acute Priority: High Current Visit: No Qualifiers: Qualified Code(s): J18.9 - Pneumonia, unspecified organism - Problem List Review Problem List Initiated/Reviewed/Updated: Yes - My Orders Last 24 Hours: My Active Orders 10/28/20 Dinner Fluid Restriction [DIET] 10/28/20 18:05 Oxygen Therapy [RC] PRN VTE/DVT Education [RC] PER UNIT ROUTINE Resuscitation Status Routine 10/28/20 18:06 Blood Glucose Check, Bedside [RC] QIDACANDBED Oxygen Therapy [RC] PRN Up ad Mary [RC] ASDIRECTED VTE/DVT Education [RC] PER UNIT ROUTINE Vital Signs [RC] Q4H Albuterol/Ipratropium [DuoNeb 3.0-0.5 MG/3 ML] 3 ml NEB Q4HRRT PRN polyethylene glycoL 3350 [MiraLAX] 17 gm PO DAILY PRN 10/28/20 18:10 RT Aerosol Therapy [RC] ASDIRECTED 10/28/20 18:25 Telemetry Monitoring [Cardiac Monitoring] [RC] Q8H Benzonatate [Tessalon Perles] 200 mg PO Q8H PRN 10/28/20 18:40 LEGIONELLA ANTIGEN [MREF] Routine STREP PNEUMONIAE ANTIGEN [MREF] Routine 10/28/20 21:00 Metoprolol Tartrate [Lopressor] 25 mg PO BID OLANZapine [ZyPREXA] 10 mg PO BEDTIME 10/29/20 06:05 PROCALCITONIN [REF] Routine 10/29/20 09:00 FLUoxetine [PROzac] 20 mg PO DAILY Losartan [Cozaar] 50 mg PO DAILY 10/29/20 10:27 Nystatin [Nystop] See Dose Instructions TOP QID PRN 10/29/20 Lunch Mechanical Soft Diet [DIET] 10/29/20 13:48 Patient Status [ADT] Routine 10/29/20 13:53 Consult to Speech Language Pathology [EMERGENCY RESPONSE COORDINATOR Evaluation and Treatment] [CONS] Routine 10/29/20 17:00 Azithromycin [Zithromax] 500 mg Sodium Chloride 0.9% [Normal Saline (AdvBag)] 250 ml IV Q24H 10/29/20 18:00 cefTRIAXone [Rocephin in Dextrose,Iso-Osm 1 GM/50 ML] 1 gm Premix Bag 1 bag IV Q24H - Plan Plan:: 85-year-old male admitted for CHF and pneumonia currently on 4 L nasal cannula. Upon chart review patient has a history of dysphagia and this is likely related to aspiration. Last night patient had a CT angio which did not show large central pulmonary embolism. Continue azithromycin and ceftriaxone. Patient is currently not anticoagulated, will follow up with PCP for information regarding discontinuation of Eliquis. We will get speech therapy to work with patient for dysphagia. Blood cultures pending. We will order urine strep and Legionella and procalcitonin level. Fluid restriction. Mechanical soft nectar thick diet.
[2020-10-29] MEDS: Azithromycin 500 MG in Sodium Chloride 0.9% 250 ML IV SCH (16:31)
[2020-10-29] MEDS: cefTRIAXone 1 GM in Premix Bag 1 BAG IV SCH (17:44)
[2020-10-29] MEDS: OLANZapine 5 MG Tab PO SCH (22:21)
[2020-10-30 07:29] LABS: BLOOD UREA NITROGEN,BUN 29 mg/dL (7.0-18.0); CARBON DIOXIDE,CO2 32.1 mmol/L (21.0-32.0); CHLORIDE,CL 107 mmol/L (98-107); GLUCOSE RANDOM 109 mg/dL (74-106); POTASSIUM,K 3.9 mmol/L (3.5-5.1); SODIUM,NA 143 mmol/L (136-148)
[2020-10-30] MEDS: Metoprolol Tartrate 25 MG Tab PO SCH ×2 (09:44→21:00)
[2020-10-30] MEDS: FLUoxetine 20 MG Cap PO SCH (09:44)
[2020-10-30] MEDS ORDERED: Glucagon,Human Recombinant 1 MG Vial IM PRN (12:15)
[2020-10-30] MEDS ORDERED: 50% Dextrose in Water 50 ML Syringe IVPUSH PRN (12:15)
[2020-10-30] MEDS: Apixaban 5 MG Tab PO SCH ×2 (15:37→21:02)
[2020-10-30] MEDS: Azithromycin 500 MG in Sodium Chloride 0.9% 250 ML IV SCH (16:13)
[2020-10-30] MEDS: Insulin Aspart 100 Units/ML 3 ML Pen SUBCUT SCH (16:47)
[2020-10-30] MEDS: cefTRIAXone 1 GM in Premix Bag 1 BAG IV SCH (17:22)
--- NOTE | 2020-10-30 17:43 | PCM.PN ---
- General Info Date of Service: 10/30/20 Admission Dx/Problem (Free Text): Admission Diagnosis/Problem Admission Diagnosis/Problem CHF, Congestive heart failure Subjective Update: 85-year-old male with a history of atrial fibrillation and multiple strokes is admitted for CHF exacerbation and pneumonia. On patient's last admission in July, he was started on Eliquis but this was not continued outpatient. No information regarding this. Spoke with his daughter, BLAKE who is looking into this for us. We will restart patient on Eliquis here in the hospital. Patient is sitting up in the chair this morning and states he feels better but would like to drink a glass of cold water. Patient is having incontinent voids but refuses catheter. He states he had it before and it was very uncomfortable. Patient denies chest pain, shortness of breath, dyspnea, palpitations or abdominal pain. Patient denies cough. Patient had 2 bowel movements. I spoke with BLAKE, his daughter Suri today and discussed goals of care and how they wanted to go for regarding elevation in care. She stated she would discuss with her family and that the custodial know. They would like for him to have a regular diet and eat what he enjoys. - Review of Systems General: Denies: Fever HEENT: Reports: Other (Thirsty) Pulmonary: Denies: Shortness of Breath, Pleuritic Chest Pain, Cough Cardiovascular: Reports: Edema. Denies: Chest Pain Gastrointestinal: Reports: Difficulty Swallowing. Denies: Abdominal Pain, Constipation Genitourinary: Reports: Incontinence. Denies: Dysuria, Burning Musculoskeletal: Denies: Leg Pain Skin: Reports: Rash Neurological: Reports: Confusion - Patient Data Vitals - Most Recent: Last Vital Signs Temp 97.7 F 10/30/20 16:00 Pulse 90 10/30/20 16:00 Resp 18 10/30/20 16:00 BP 130/64 10/30/20 16:00 Pulse Ox 95 10/30/20 16:00 Weight - Most Recent: 253 lb 8.505 oz I&O - Last 24 Hours: Intake & Output 10/30/20 10/30/20 10/30/20 06:59 14:59 22:59 Intake Total 500 Balance 500 Lab Results Last 24 Hours: Laboratory Results - last 24 hr 08/02/21 08/02/21 08/03/21 Range/Units 06:05 22:00 06:37 WBC (4.0-11.0) K/uL RBC (4.50-5.90) M/uL Hgb (13.0-17.0) g/dL Hct (38.0-50.0) % MCV (80.0-98.0) fL MCH (27.0-32.0) pg MCHC (31.0-37.0) g/dL RDW Std Deviation (28.0-62.0) fl RDW Coeff of Edna (11.0-15.0) % Plt Count (150-400) K/uL MPV (7.40-12.00) fL Neut % (Auto) (48.0-80.0) % Lymph % (Auto) (16.0-40.0) % [place] % (Auto) (0.0-15.0) % Eos % (Auto) (0.0-7.0) % Baso % (Auto) (0.0-1.5) % Neut # (Auto) (1.4-5.7) K/uL Lymph # (Auto) (0.6-2.4) K/uL [place] # (Auto) (0.0-0.8) K/uL Eos # (Auto) (0.0-0.7) K/uL Baso # (Auto) (0.0-0.1) K/uL Nucleated RBC % /100WBC Nucleated RBCs # K/uL Sodium (136-148) mmol/L Potassium (3.5-5.1) mmol/L Chloride (98-107) mmol/L Carbon Dioxide (21.0-32.0) mmol/L BUN (7.0-18.0) mg/dL Creatinine (0.8-1.3) mg/dL Est Cr Clr Drug Dosing mL/min Estimated GFR (MDRD) ml/min Glucose (74-106) mg/dL POC Glucose 133 H 112 H (70-99) mg/dL Calcium (8.5-10.1) mg/dL Total Bilirubin (0.2-1.0) mg/dL AST (15-37) IU/L ALT (14-63) IU/L Alkaline Phosphatase (46-116) U/L Total Protein (6.4-8.2) g/dL Albumin (3.4-5.0) g/dL Globulin (2.6-4.0) g/dL Albumin/Globulin Ratio (0.9-1.6) Procalcitonin 0.06 ng/mL 10/30/20 10/30/20 10/30/20 Range/Units 06:48 06:48 11:45 WBC 7.32 (4.0-11.0) K/uL RBC 4.86 (4.50-5.90) M/uL Hgb 14.2 (13.0-17.0) g/dL Hct 44.0 (38.0-50.0) % MCV 90.5 (80.0-98.0) fL MCH 29.2 (27.0-32.0) pg MCHC 32.3 (31.0-37.0) g/dL RDW Std Deviation 45.7 (28.0-62.0) fl RDW Coeff of Edna 14 (11.0-15.0) % Plt Count 187 (150-400) K/uL MPV 11.20 (7.40-12.00) fL Neut % (Auto) 61.1 (48.0-80.0) % Lymph % (Auto) 25.3 (16.0-40.0) % [place] % (Auto) 9.3 (0.0-15.0) % Eos % (Auto) 4.0 (0.0-7.0) % Baso % (Auto) 0.3 (0.0-1.5) % Neut # (Auto) 4.5 (1.4-5.7) K/uL Lymph # (Auto) 1.9 (0.6-2.4) K/uL [place] # (Auto) 0.7 (0.0-0.8) K/uL Eos # (Auto) 0.3 (0.0-0.7) K/uL Baso # (Auto) 0.0 (0.0-0.1) K/uL Nucleated RBC % 0.0 /100WBC Nucleated RBCs # 0 K/uL Sodium 143 (136-148) mmol/L Potassium 3.9 (3.5-5.1) mmol/L Chloride 107 (98-107) mmol/L Carbon Dioxide 32.1 H (21.0-32.0) mmol/L BUN 29 H (7.0-18.0) mg/dL Creatinine 0.9 (0.8-1.3) mg/dL Est Cr Clr Drug Dosing 68.26 mL/min Estimated GFR (MDRD) > 60.0 ml/min Glucose 109 H (74-106) mg/dL POC Glucose 142 H (70-99) mg/dL Calcium 8.5 (8.5-10.1) mg/dL Total Bilirubin 0.6 (0.2-1.0) mg/dL AST 15 (15-37) IU/L ALT 15 (14-63) IU/L Alkaline Phosphatase 60 (46-116) U/L Total Protein 7.4 (6.4-8.2) g/dL Albumin 2.9 L (3.4-5.0) g/dL Globulin 4.5 H (2.6-4.0) g/dL Albumin/Globulin Ratio 0.6 L (0.9-1.6) Procalcitonin ng/mL 10/30/20 Range/Units 15:39 WBC (4.0-11.0) K/uL RBC (4.50-5.90) M/uL Hgb (13.0-17.0) g/dL Hct (38.0-50.0) % MCV (80.0-98.0) fL MCH (27.0-32.0) pg MCHC (31.0-37.0) g/dL RDW Std Deviation (28.0-62.0) fl RDW Coeff of Edna (11.0-15.0) % Plt Count (150-400) K/uL MPV (7.40-12.00) fL Neut % (Auto) (48.0-80.0) % Lymph % (Auto) (16.0-40.0) % [place] % (Auto) (0.0-15.0) % Eos % (Auto) (0.0-7.0) % Baso % (Auto) (0.0-1.5) % Neut # (Auto) (1.4-5.7) K/uL Lymph # (Auto) (0.6-2.4) K/uL [place] # (Auto) (0.0-0.8) K/uL Eos # (Auto) (0.0-0.7) K/uL Baso # (Auto) (0.0-0.1) K/uL Nucleated RBC % /100WBC Nucleated RBCs # K/uL Sodium (136-148) mmol/L Potassium (3.5-5.1) mmol/L Chloride (98-107) mmol/L Carbon Dioxide (21.0-32.0) mmol/L BUN (7.0-18.0) mg/dL Creatinine (0.8-1.3) mg/dL Est Cr Clr Drug Dosing mL/min Estimated GFR (MDRD) ml/min Glucose (74-106) mg/dL POC Glucose 93 (70-99) mg/dL Calcium (8.5-10.1) mg/dL Total Bilirubin (0.2-1.0) mg/dL AST (15-37) IU/L ALT (14-63) IU/L Alkaline Phosphatase (46-116) U/L Total Protein (6.4-8.2) g/dL Albumin (3.4-5.0) g/dL Globulin (2.6-4.0) g/dL Albumin/Globulin Ratio (0.9-1.6) Procalcitonin ng/mL Martell Results Last 24 Hours: Microbiology 10/28/20 17:24 Aerobic Blood Culture - Preliminary Blood - Venous - Lab Draw NO GROWTH AFTER 2 DAYS Anaerobic Blood Culture - Preliminary NO GROWTH AFTER 2 DAYS 10/28/20 17:15 Aerobic Blood Culture - Preliminary Blood - Venous NO GROWTH AFTER 2 DAYS Anaerobic Blood Culture - Preliminary NO GROWTH AFTER 2 DAYS Med Orders - Current: Current Medications Albuterol/Ipratropium (Albuterol/Ipratropium 3.0-0.5 Mg/3 Ml Neb Soln) 3 ml NEB Q4HRRT PRN PRN Reason: Shortness Of Breath/wheezing Apixaban (Apixaban 5 Mg Tab) 5 mg PO BID JACKIE Last Admin: 10/30/20 15:37 Dose: 5 mg Documented by: Benzonatate (Benzonatate 100 Mg Cap) 200 mg PO Q8H PRN PRN Reason: Cough Dextrose/Water (50% Dextrose In Water 50 Ml Syringe) 50 ml IVPUSH ASDIRECTED PRN PRN Reason: Hypoglycemia Fluoxetine HCl (Fluoxetine 20 Mg Cap) 20 mg PO DAILY JACKIE Last Admin: 10/30/20 09:44 Dose: 20 mg Documented by: Glucagon (Glucagon,Human Recombinant 1 Mg Vial) 1 mg IM ASDIRECTED PRN PRN Reason: Hypoglycemia Ceftriaxone Sodium/Dextrose 1 (gm/ Premix) 50 mls @ 100 mls/hr IV Q24H [facility] Last Admin: 10/30/20 17:22 Dose: 100 mls/hr Documented by: Azithromycin 500 mg/ Sodium (Chloride) 250 mls @ 250 mls/hr IV Q24H [facility] Last Admin: 10/30/20 16:13 Dose: 250 mls/hr Documented by: Insulin Aspart (Insulin Aspart 100 Units/Ml 3 Ml Pen) 0 unit SUBCUT TIDAC [facility]; Protocol Last Admin: 10/30/20 16:47 Dose: Not Given Documented by: Metoprolol Tartrate (Metoprolol Tartrate 25 Mg Tab) 25 mg PO BID [facility] Last Admin: 10/30/20 09:44 Dose: Not Given Documented by: Nystatin (Nystatin Topical Powder 15 Gm Bottle) 0 gm TOP QID PRN PRN Reason: Itching Last Admin: 10/29/20 11:13 Dose: 1 applic Documented by: Olanzapine (Olanzapine 5 Mg Tab) 10 mg PO BEDTIME [facility] Last Admin: 10/29/20 22:21 Dose: Not Given Documented by: Polyethylene Glycol (Polyethylene Glycol 3350 Powder 17 Gm Packet) 17 gm PO DAILY PRN PRN Reason: Constipation Sodium Chloride (Sodium Chloride 0.9% 10 Ml Syringe) 10 ml FLUSH ASDIRECTED PRN PRN Reason: Keep Vein Open Last Admin: 10/28/20 15:55 Dose: 10 ml Documented by: Sodium Chloride (Sodium Chloride 0.9% 2.5 Ml Syringe) 2.5 ml FLUSH ASDIRECTED PRN PRN Reason: Keep Vein Open Last Admin: 10/28/20 15:55 Dose: 2.5 ml Documented by: Discontinued Medications Benzonatate (Benzonatate 100 Mg Cap) 200 mg PO ONETIME ONE Stop: 10/28/20 17:38 Last Admin: 10/28/20 18:00 Dose: 200 mg Documented by: Furosemide (Furosemide 20 Mg/2 Ml Vial) 60 mg IVPUSH ONETIME ONE Stop: 10/28/20 15:14 Last Admin: 10/28/20 15:50 Dose: 60 mg Documented by: Azithromycin 500 mg/ Sodium (Chloride) 250 mls @ 250 mls/hr IV ONETIME [facility] Ceftriaxone Sodium/Dextrose 1 (gm/ Premix) 50 mls @ 100 mls/hr IV ONETIME ONE Stop: 10/28/20 17:32 Last Admin: 10/28/20 17:57 Dose: 100 mls/hr Documented by: Azithromycin 500 mg/ Sodium (Chloride) 250 mls @ 250 mls/hr IV ONETIME ONE Stop: 10/28/20 17:59 Last Admin: 10/28/20 19:39 Dose: 250 mls/hr Documented by: Iopamidol (Iopamidol 755 Mg/Ml 100 Ml Bottle) 100 ml IVPUSH ONETIME ONE Stop: 10/29/20 00:37 Last Admin: 10/29/20 00:51 Dose: 100 ml Documented by: Losartan Potassium (Losartan 50 Mg Tab) 50 mg PO DAILY [facility] Last Admin: 10/29/20 10:10 Dose: Not Given Documented by: Metoprolol Tartrate (Metoprolol Tartrate 5 Mg/5 Ml Sdv) 5 mg IVPUSH ONETIME ONE Stop: 10/28/20 20:36 Last Admin: 10/28/20 21:07 Dose: 5 mg Documented by: Potassium Chloride (Potassium Chloride 20 Meq Tab.Er) 20 meq PO BIDMEALS [facility] Last Admin: 10/28/20 21:19 Dose: Not Given Documented by: - Exam Quality Assessment: Supplemental Oxygen General: Alert, Cooperative, No Acute Distress. No: Oriented HEENT: Pupils Reactive Neck: Supple, No JVD Lungs: Decreased Breath Sounds. No: Crackles Cardiovascular: Irregular Rhythm, Tachycardia GI/Abdominal Exam: Normal Bowel Sounds, Soft, Non-Tender, No Distention Extremities: Pedal Edema. No: Svitlana's Sign, Leg Pain Peripheral Pulses: 2+: Dorsalis Pedis (L), Dorsalis Pedis (R) Skin: Rash, Other (Chronic rash under abdominal fold) Neurological: No New Focal Deficit - Patient Data Lab Results Last 24 hrs: Laboratory Results - last 24 hr 10/29/20 10/29/20 10/30/20 Range/Units 06:05 22:00 06:37 WBC (4.0-11.0) K/uL RBC (4.50-5.90) M/uL Hgb (13.0-17.0) g/dL Hct (38.0-50.0) % MCV (80.0-98.0) fL MCH (27.0-32.0) pg MCHC (31.0-37.0) g/dL RDW Std Deviation (28.0-62.0) fl RDW Coeff of Edna (11.0-15.0) % Plt Count (150-400) K/uL MPV (7.40-12.00) fL Neut % (Auto) (48.0-80.0) % Lymph % (Auto) (16.0-40.0) % [place] % (Auto) (0.0-15.0) % Eos % (Auto) (0.0-7.0) % Baso % (Auto) (0.0-1.5) % Neut # (Auto) (1.4-5.7) K/uL Lymph # (Auto) (0.6-2.4) K/uL [place] # (Auto) (0.0-0.8) K/uL Eos # (Auto) (0.0-0.7) K/uL Baso # (Auto) (0.0-0.1) K/uL Nucleated RBC % /100WBC Nucleated RBCs # K/uL Sodium (136-148) mmol/L Potassium (3.5-5.1) mmol/L Chloride (98-107) mmol/L Carbon Dioxide (21.0-32.0) mmol/L BUN (7.0-18.0) mg/dL Creatinine (0.8-1.3) mg/dL Est Cr Clr Drug Dosing mL/min Estimated GFR (MDRD) ml/min Glucose (74-106) mg/dL POC Glucose 133 H 112 H (70-99) mg/dL Calcium (8.5-10.1) mg/dL Total Bilirubin (0.2-1.0) mg/dL AST (15-37) IU/L ALT (14-63) IU/L Alkaline Phosphatase (46-116) U/L Total Protein (6.4-8.2) g/dL Albumin (3.4-5.0) g/dL Globulin (2.6-4.0) g/dL Albumin/Globulin Ratio (0.9-1.6) Procalcitonin 0.06 ng/mL 10/30/20 10/30/20 10/30/20 Range/Units 06:48 06:48 11:45 WBC 7.32 (4.0-11.0) K/uL RBC 4.86 (4.50-5.90) M/uL Hgb 14.2 (13.0-17.0) g/dL Hct 44.0 (38.0-50.0) % MCV 90.5 (80.0-98.0) fL MCH 29.2 (27.0-32.0) pg MCHC 32.3 (31.0-37.0) g/dL RDW Std Deviation 45.7 (28.0-62.0) fl RDW Coeff of Edna 14 (11.0-15.0) % Plt Count 187 (150-400) K/uL MPV 11.20 (7.40-12.00) fL Neut % (Auto) 61.1 (48.0-80.0) % Lymph % (Auto) 25.3 (16.0-40.0) % [place] % (Auto) 9.3 (0.0-15.0) % Eos % (Auto) 4.0 (0.0-7.0) % Baso % (Auto) 0.3 (0.0-1.5) % Neut # (Auto) 4.5 (1.4-5.7) K/uL Lymph # (Auto) 1.9 (0.6-2.4) K/uL [place] # (Auto) 0.7 (0.0-0.8) K/uL Eos # (Auto) 0.3 (0.0-0.7) K/uL Baso # (Auto) 0.0 (0.0-0.1) K/uL Nucleated RBC % 0.0 /100WBC Nucleated RBCs # 0 K/uL Sodium 143 (136-148) mmol/L Potassium 3.9 (3.5-5.1) mmol/L Chloride 107 (98-107) mmol/L Carbon Dioxide 32.1 H (21.0-32.0) mmol/L BUN 29 H (7.0-18.0) mg/dL Creatinine 0.9 (0.8-1.3) mg/dL Est Cr Clr Drug Dosing 68.26 mL/min Estimated GFR (MDRD) > 60.0 ml/min Glucose 109 H (74-106) mg/dL POC Glucose 142 H (70-99) mg/dL Calcium 8.5 (8.5-10.1) mg/dL Total Bilirubin 0.6 (0.2-1.0) mg/dL AST 15 (15-37) IU/L ALT 15 (14-63) IU/L Alkaline Phosphatase 60 (46-116) U/L Total Protein 7.4 (6.4-8.2) g/dL Albumin 2.9 L (3.4-5.0) g/dL Globulin 4.5 H (2.6-4.0) g/dL Albumin/Globulin Ratio 0.6 L (0.9-1.6) Procalcitonin ng/mL 10/30/20 Range/Units 15:39 WBC (4.0-11.0) K/uL RBC (4.50-5.90) M/uL Hgb (13.0-17.0) g/dL Hct (38.0-50.0) % MCV (80.0-98.0) fL MCH (27.0-32.0) pg MCHC (31.0-37.0) g/dL RDW Std Deviation (28.0-62.0) fl RDW Coeff of Edna (11.0-15.0) % Plt Count (150-400) K/uL MPV (7.40-12.00) fL Neut % (Auto) (48.0-80.0) % Lymph % (Auto) (16.0-40.0) % [place] % (Auto) (0.0-15.0) % Eos % (Auto) (0.0-7.0) % Baso % (Auto) (0.0-1.5) % Neut # (Auto) (1.4-5.7) K/uL Lymph # (Auto) (0.6-2.4) K/uL [place] # (Auto) (0.0-0.8) K/uL Eos # (Auto) (0.0-0.7) K/uL Baso # (Auto) (0.0-0.1) K/uL Nucleated RBC % /100WBC Nucleated RBCs # K/uL Sodium (136-148) mmol/L Potassium (3.5-5.1) mmol/L Chloride (98-107) mmol/L Carbon Dioxide (21.0-32.0) mmol/L BUN (7.0-18.0) mg/dL Creatinine (0.8-1.3) mg/dL Est Cr Clr Drug Dosing mL/min Estimated GFR (MDRD) ml/min Glucose (74-106) mg/dL POC Glucose 93 (70-99) mg/dL Calcium (8.5-10.1) mg/dL Total Bilirubin (0.2-1.0) mg/dL AST (15-37) IU/L ALT (14-63) IU/L Alkaline Phosphatase (46-116) U/L Total Protein (6.4-8.2) g/dL Albumin (3.4-5.0) g/dL Globulin (2.6-4.0) g/dL Albumin/Globulin Ratio (0.9-1.6) Procalcitonin ng/mL Result Diagrams: 10/30/20 06:48 10/30/20 06:48 Martell Results Last 24 hrs: Microbiology 10/28/20 17:24 Aerobic Blood Culture - Preliminary Blood - Venous - Lab Draw NO GROWTH AFTER 2 DAYS Anaerobic Blood Culture - Preliminary NO GROWTH AFTER 2 DAYS 10/28/20 17:15 Aerobic Blood Culture - Preliminary Blood - Venous NO GROWTH AFTER 2 DAYS Anaerobic Blood Culture - Preliminary NO GROWTH AFTER 2 DAYS Sepsis Event Note - Evaluation Sepsis Screening Result: No Definite Risk - Focused Exam Vital Signs: Vital Signs Temp Pulse Pulse Resp BP BP BP 10/30/20 16:00 97.7 F 90 18 130/64 10/30/20 11:35 98.0 F 93 18 115/61 10/30/20 09:44 87 114/69 10/30/20 08:00 97 F 87 18 114/69 Pulse Ox 10/30/20 16:00 95 10/30/20 11:35 93 L 10/30/20 09:44 10/30/20 08:00 93 L - Problem List & Annotations (1) Atrial fibrillation SNOMED Code(s): 76363681 Code(s): I48.91 - UNSPECIFIED ATRIAL FIBRILLATION Status: Chronic Current Visit: No (2) Acute exacerbation of congestive heart failure SNOMED Code(s): 723420615, 91736512196250 Code(s): I50.9 - HEART FAILURE, UNSPECIFIED Status: Acute Current Visit: No Qualifiers: Heart failure type: unspecified Qualified Code(s): I50.9 - Heart failure, unspecified (3) Dementia SNOMED Code(s): 39912375 Code(s): F03.90 - UNSPECIFIED DEMENTIA WITHOUT BEHAVIORAL DISTURBANCE Status: Chronic Current Visit: No Qualifiers: Dementia type: unspecified type Dementia behavioral disturbance: without behavioral disturbance Qualified Code(s): F03.90 - Unspecified dementia without behavioral disturbance (4) Pneumonia SNOMED Code(s): 399243681 Code(s): J18.9 - PNEUMONIA, UNSPECIFIED ORGANISM Status: Acute Priority: High Current Visit: No Qualifiers: Qualified Code(s): J18.9 - Pneumonia, unspecified organism (5) Aspiration into respiratory tract SNOMED Code(s): 664935283 Code(s): T17.908A - UNSP FB IN RESP TRACT, PART UNSP CAUSING OTH INJURY, INIT Status: Acute Current Visit: Yes - Problem List Review Problem List Initiated/Reviewed/Updated: Yes - My Orders Last 24 Hours: My Active Orders 10/29/20 17:00 Azithromycin [Zithromax] 500 mg Sodium Chloride 0.9% [Normal Saline (AdvBag)] 250 ml IV Q24H 10/29/20 18:00 cefTRIAXone [Rocephin in Dextrose,Iso-Osm 1 GM/50 ML] 1 gm Premix Bag 1 bag IV Q24H 10/30/20 11:30 Apixaban [Eliquis] 5 mg PO BID 10/30/20 12:15 Dextrose 50% in Water 50 ml IVPUSH ASDIRECTED PRN Glucagon,Human Recombinant [GlucaGen] 1 mg IM ASDIRECTED PRN 10/30/20 17:00 Insulin Aspart [NovoLOG] See Protocol SUBCUT TIDAC 10/31/20 05:11 CBC WITH AUTO DIFF [HEME] AM CMP [COMPREHENSIVE METABOLIC PN,CMP] [CHEM] AM - Plan Plan:: 85-year-old male admitted for CHF and aspiration pneumonia currently on 2 L nasal cannula. Will restart patient on Eliquis 5 mg twice daily. Speech therapy consulted. Spoke with the family regarding goals of care and they will discuss and notify us. Patient denies Giron catheter. Continue azithromycin and ceftriaxone. Patient is not fluid overloaded. Procalcitonin was normal. Blood cultures pending. Fluid restriction and mechanical soft diet.
[2020-10-30] MEDS: OLANZapine 5 MG Tab PO SCH (21:02)
[2020-10-31 06:44] LABS: BLOOD UREA NITROGEN,BUN 25 mg/dL (7.0-18.0); CHLORIDE,CL 107 mmol/L (98-107); GLUCOSE RANDOM 104 mg/dL (74-106); POTASSIUM,K 3.5 mmol/L (3.5-5.1); SODIUM,NA 144 mmol/L (136-148)
[2020-10-31] MEDS: Insulin Aspart 100 Units/ML 3 ML Pen SUBCUT SCH ×3 (08:31→16:57)
[2020-10-31] MEDS: FLUoxetine 20 MG Cap PO SCH (10:15)
[2020-10-31] MEDS: Apixaban 5 MG Tab PO SCH ×2 (10:15→22:16)
[2020-10-31] MEDS: Metoprolol Tartrate 25 MG Tab PO SCH ×2 (10:16→22:16)
[2020-10-31] MEDS ORDERED: Furosemide 20 MG/2 ML VIAL IVPUSH ONE (11:41)
--- NOTE | 2020-10-31 15:27 | PCM.PN ---
<Arianna Watts - Last Filed: 10/31/20 15:22> - General Info Date of Service: 10/31/20 Admission Dx/Problem (Free Text): Admission Diagnosis/Problem Admission Diagnosis/Problem CHF, Congestive heart failure Subjective Update: 85-year-old male with history of A. fib, dysphagia and strokes is admitted for aspiration pneumonia and CHF exacerbation. Patient was restarted on Eliquis yesterday. Patient is not on IV fluids. Mild pedal edema noted. Patient has dementia as baseline but is making jokes. No nursing concerns overnight. Speech therapy did see the patient and advised continuing soft mechanical diet. Patient is on azithromycin and ceftriaxone. Patient denies chest pain, shortness of breath, dyspnea, palpitations or abdominal pain. Patient denies cough. I called patient's POA, his daughter Suri again today. She stated that they were not able to get a hold of [facility]. For now she would like to continue his medical management. She states that they signed a waiver with [facility] for him to receive a normal diet. She understands the patient is on soft mechanical at the hospital right now. She states the family is not ready to put the patient on comfort care measures. They will discuss and really decision to [place] once they get a hold of somebody there. - Review of Systems General: Denies: Fever, Chills HEENT: Reports: No Symptoms Pulmonary: Denies: Shortness of Breath Cardiovascular: Reports: Edema. Denies: Chest Pain, Palpitations, Orthopnea Gastrointestinal: Denies: Abdominal Pain, Constipation Genitourinary: Reports: Incontinence Musculoskeletal: Denies: Leg Pain, Foot Pain, Joint Swelling Skin: Reports: No Symptoms Neurological: Reports: Confusion - Patient Data Vitals - Most Recent: Last Vital Signs Temp 96.9 F 10/31/20 11:46 Pulse 69 10/31/20 11:46 Resp 22 H 10/31/20 11:46 BP 102/61 10/31/20 11:46 Pulse Ox 96 10/31/20 11:46 Weight - Most Recent: 115 kg I&O - Last 24 Hours: Intake & Output 10/31/20 10/31/20 10/31/20 06:59 14:59 22:59 Intake Total 220 Output Total 150 Balance 70 Lab Results Last 24 Hours: Laboratory Results - last 24 hr 10/30/20 10/31/20 10/31/20 Range/Units 15:39 05:25 05:25 WBC 8.49 (4.0-11.0) K/uL RBC 4.59 (4.50-5.90) M/uL Hgb 13.5 (13.0-17.0) g/dL Hct 41.2 (38.0-50.0) % MCV 89.8 (80.0-98.0) fL MCH 29.4 (27.0-32.0) pg MCHC 32.8 (31.0-37.0) g/dL RDW Std Deviation 45.1 (28.0-62.0) fl RDW Coeff of Edna 14 (11.0-15.0) % Plt Count 188 (150-400) K/uL MPV 11.60 (7.40-12.00) fL Neut % (Auto) 67.3 (48.0-80.0) % Lymph % (Auto) 19.7 (16.0-40.0) % Brown % (Auto) 8.8 (0.0-15.0) % Eos % (Auto) 3.8 (0.0-7.0) % Baso % (Auto) 0.4 (0.0-1.5) % Neut # (Auto) 5.7 (1.4-5.7) K/uL Lymph # (Auto) 1.7 (0.6-2.4) K/uL Brown # (Auto) 0.8 (0.0-0.8) K/uL Eos # (Auto) 0.3 (0.0-0.7) K/uL Baso # (Auto) 0.0 (0.0-0.1) K/uL Nucleated RBC % 0.0 /100WBC Nucleated RBCs # 0 K/uL Sodium 144 (136-148) mmol/L Potassium 3.5 (3.5-5.1) mmol/L Chloride 107 (98-107) mmol/L Carbon Dioxide 32.0 (21.0-32.0) mmol/L BUN 25 H (7.0-18.0) mg/dL Creatinine 0.6 L (0.8-1.3) mg/dL Est Cr Clr Drug Dosing 102.39 mL/min Estimated GFR (MDRD) > 60.0 ml/min Glucose 104 (74-106) mg/dL POC Glucose 93 (70-99) mg/dL Calcium 8.2 L (8.5-10.1) mg/dL Total Bilirubin 0.7 (0.2-1.0) mg/dL AST 17 (15-37) IU/L ALT 10 L (14-63) IU/L Alkaline Phosphatase 54 (46-116) U/L Total Protein 6.8 (6.4-8.2) g/dL Albumin 2.8 L (3.4-5.0) g/dL Globulin 4.0 (2.6-4.0) g/dL Albumin/Globulin Ratio 0.7 L (0.9-1.6) 10/31/20 Range/Units 06:44 WBC (4.0-11.0) K/uL RBC (4.50-5.90) M/uL Hgb (13.0-17.0) g/dL Hct (38.0-50.0) % MCV (80.0-98.0) fL MCH (27.0-32.0) pg MCHC (31.0-37.0) g/dL RDW Std Deviation (28.0-62.0) fl RDW Coeff of Edna (11.0-15.0) % Plt Count (150-400) K/uL MPV (7.40-12.00) fL Neut % (Auto) (48.0-80.0) % Lymph % (Auto) (16.0-40.0) % Brown % (Auto) (0.0-15.0) % Eos % (Auto) (0.0-7.0) % Baso % (Auto) (0.0-1.5) % Neut # (Auto) (1.4-5.7) K/uL Lymph # (Auto) (0.6-2.4) K/uL Brown # (Auto) (0.0-0.8) K/uL Eos # (Auto) (0.0-0.7) K/uL Baso # (Auto) (0.0-0.1) K/uL Nucleated RBC % /100WBC Nucleated RBCs # K/uL Sodium (136-148) mmol/L Potassium (3.5-5.1) mmol/L Chloride (98-107) mmol/L Carbon Dioxide (21.0-32.0) mmol/L BUN (7.0-18.0) mg/dL Creatinine (0.8-1.3) mg/dL Est Cr Clr Drug Dosing mL/min Estimated GFR (MDRD) ml/min Glucose (74-106) mg/dL POC Glucose 98 (70-99) mg/dL Calcium (8.5-10.1) mg/dL Total Bilirubin (0.2-1.0) mg/dL AST (15-37) IU/L ALT (14-63) IU/L Alkaline Phosphatase (46-116) U/L Total Protein (6.4-8.2) g/dL Albumin (3.4-5.0) g/dL Globulin (2.6-4.0) g/dL Albumin/Globulin Ratio (0.9-1.6) Martell Results Last 24 Hours: Microbiology 10/28/20 17:24 Aerobic Blood Culture - Preliminary Blood - Venous - Lab Draw NO GROWTH AFTER 2 DAYS Anaerobic Blood Culture - Preliminary NO GROWTH AFTER 2 DAYS 10/28/20 17:15 Aerobic Blood Culture - Preliminary Blood - Venous NO GROWTH AFTER 2 DAYS Anaerobic Blood Culture - Preliminary NO GROWTH AFTER 2 DAYS Med Orders - Current: Current Medications Albuterol/Ipratropium (Albuterol/Ipratropium 3.0-0.5 Mg/3 Ml Neb Soln) 3 ml NEB Q4HRRT PRN PRN Reason: Shortness Of Breath/wheezing Apixaban (Apixaban 5 Mg Tab) 5 mg PO BID [facility] Last Admin: 10/31/20 10:15 Dose: 5 mg Documented by: Benzonatate (Benzonatate 100 Mg Cap) 200 mg PO Q8H PRN PRN Reason: Cough Dextrose/Water (50% Dextrose In Water 50 Ml Syringe) 50 ml IVPUSH ASDIRECTED PRN PRN Reason: Hypoglycemia Fluoxetine HCl (Fluoxetine 20 Mg Cap) 20 mg PO DAILY [facility] Last Admin: 10/31/20 10:15 Dose: 20 mg Documented by: Glucagon (Glucagon,Human Recombinant 1 Mg Vial) 1 mg IM ASDIRECTED PRN PRN Reason: Hypoglycemia Ceftriaxone Sodium/Dextrose 1 (gm/ Premix) 50 mls @ 100 mls/hr IV Q24H [facility] Last Admin: 10/30/20 17:22 Dose: 100 mls/hr Documented by: Azithromycin 500 mg/ Sodium (Chloride) 250 mls @ 250 mls/hr IV Q24H [facility] Last Admin: 10/30/20 16:13 Dose: 250 mls/hr Documented by: Insulin Aspart (Insulin Aspart 100 Units/Ml 3 Ml Pen) 0 unit SUBCUT TIDAC [facility]; Protocol Last Admin: 10/31/20 11:40 Dose: Not Given Documented by: Metoprolol Tartrate (Metoprolol Tartrate 25 Mg Tab) 25 mg PO BID [facility] Last Admin: 10/31/20 10:16 Dose: 25 mg Documented by: Nystatin (Nystatin Topical Powder 15 Gm Bottle) 0 gm TOP QID PRN PRN Reason: Itching Last Admin: 10/29/20 11:13 Dose: 1 applic Documented by: Olanzapine (Olanzapine 5 Mg Tab) 10 mg PO BEDTIME [facility] Last Admin: 10/30/20 21:02 Dose: 10 mg Documented by: Polyethylene Glycol (Polyethylene Glycol 3350 Powder 17 Gm Packet) 17 gm PO DAILY PRN PRN Reason: Constipation Sodium Chloride (Sodium Chloride 0.9% 10 Ml Syringe) 10 ml FLUSH ASDIRECTED PRN PRN Reason: Keep Vein Open Last Admin: 10/28/20 15:55 Dose: 10 ml Documented by: Sodium Chloride (Sodium Chloride 0.9% 2.5 Ml Syringe) 2.5 ml FLUSH ASDIRECTED PRN PRN Reason: Keep Vein Open Last Admin: 10/28/20 15:55 Dose: 2.5 ml Documented by: Discontinued Medications Benzonatate (Benzonatate 100 Mg Cap) 200 mg PO ONETIME ONE Stop: 10/28/20 17:38 Last Admin: 10/28/20 18:00 Dose: 200 mg Documented by: Furosemide (Furosemide 20 Mg/2 Ml Vial) 60 mg IVPUSH ONETIME ONE Stop: 10/28/20 15:14 Last Admin: 10/28/20 15:50 Dose: 60 mg Documented by: Furosemide (Furosemide 20 Mg/2 Ml Vial) 20 mg IVPUSH ONETIME ONE Stop: 10/31/20 11:42 Last Admin: 10/31/20 12:01 Dose: 20 mg Documented by: Azithromycin 500 mg/ Sodium (Chloride) 250 mls @ 250 mls/hr IV ONETIME [facility] Ceftriaxone Sodium/Dextrose 1 (gm/ Premix) 50 mls @ 100 mls/hr IV ONETIME ONE Stop: 10/28/20 17:32 Last Admin: 10/28/20 17:57 Dose: 100 mls/hr Documented by: Azithromycin 500 mg/ Sodium (Chloride) 250 mls @ 250 mls/hr IV ONETIME ONE Stop: 10/28/20 17:59 Last Admin: 10/28/20 19:39 Dose: 250 mls/hr Documented by: Iopamidol (Iopamidol 755 Mg/Ml 100 Ml Bottle) 100 ml IVPUSH ONETIME ONE Stop: 10/29/20 00:37 Last Admin: 10/29/20 00:51 Dose: 100 ml Documented by: Losartan Potassium (Losartan 50 Mg Tab) 50 mg PO DAILY [facility] Last Admin: 10/29/20 10:10 Dose: Not Given Documented by: Metoprolol Tartrate (Metoprolol Tartrate 5 Mg/5 Ml Sdv) 5 mg IVPUSH ONETIME ONE Stop: 10/28/20 20:36 Last Admin: 10/28/20 21:07 Dose: 5 mg Documented by: Potassium Chloride (Potassium Chloride 20 Meq Tab.Er) 20 meq PO BIDMEALS [facility] Last Admin: 10/28/20 21:19 Dose: Not Given Documented by: - Exam Quality Assessment: Supplemental Oxygen General: Alert, No Acute Distress HEENT: Pupils Reactive Neck: Supple, No JVD Lungs: Crackles Cardiovascular: Regular Rate, No Murmurs GI/Abdominal Exam: Normal Bowel Sounds, Soft, No Distention Extremities: Non-Tender, Pedal Edema. No: Svitlana's Sign, Leg Pain Peripheral Pulses: 2+: Dorsalis Pedis (L), Dorsalis Pedis (R) Skin: Warm, Rash (Under abdominal flap.) Neurological: No New Focal Deficit - Patient Data Lab Results Last 24 hrs: Laboratory Results - last 24 hr 10/30/20 10/31/20 10/31/20 Range/Units 15:39 05:25 05:25 WBC 8.49 (4.0-11.0) K/uL RBC 4.59 (4.50-5.90) M/uL Hgb 13.5 (13.0-17.0) g/dL Hct 41.2 (38.0-50.0) % MCV 89.8 (80.0-98.0) fL MCH 29.4 (27.0-32.0) pg MCHC 32.8 (31.0-37.0) g/dL RDW Std Deviation 45.1 (28.0-62.0) fl RDW Coeff of Edna 14 (11.0-15.0) % Plt Count 188 (150-400) K/uL MPV 11.60 (7.40-12.00) fL Neut % (Auto) 67.3 (48.0-80.0) % Lymph % (Auto) 19.7 (16.0-40.0) % Brown % (Auto) 8.8 (0.0-15.0) % Eos % (Auto) 3.8 (0.0-7.0) % Baso % (Auto) 0.4 (0.0-1.5) % Neut # (Auto) 5.7 (1.4-5.7) K/uL Lymph # (Auto) 1.7 (0.6-2.4) K/uL Brown # (Auto) 0.8 (0.0-0.8) K/uL Eos # (Auto) 0.3 (0.0-0.7) K/uL Baso # (Auto) 0.0 (0.0-0.1) K/uL Nucleated RBC % 0.0 /100WBC Nucleated RBCs # 0 K/uL Sodium 144 (136-148) mmol/L Potassium 3.5 (3.5-5.1) mmol/L Chloride 107 (98-107) mmol/L Carbon Dioxide 32.0 (21.0-32.0) mmol/L BUN 25 H (7.0-18.0) mg/dL Creatinine 0.6 L (0.8-1.3) mg/dL Est Cr Clr Drug Dosing 102.39 mL/min Estimated GFR (MDRD) > 60.0 ml/min Glucose 104 (74-106) mg/dL POC Glucose 93 (70-99) mg/dL Calcium 8.2 L (8.5-10.1) mg/dL Total Bilirubin 0.7 (0.2-1.0) mg/dL AST 17 (15-37) IU/L ALT 10 L (14-63) IU/L Alkaline Phosphatase 54 (46-116) U/L Total Protein 6.8 (6.4-8.2) g/dL Albumin 2.8 L (3.4-5.0) g/dL Globulin 4.0 (2.6-4.0) g/dL Albumin/Globulin Ratio 0.7 L (0.9-1.6) 10/31/20 Range/Units 06:44 WBC (4.0-11.0) K/uL RBC (4.50-5.90) M/uL Hgb (13.0-17.0) g/dL Hct (38.0-50.0) % MCV (80.0-98.0) fL MCH (27.0-32.0) pg MCHC (31.0-37.0) g/dL RDW Std Deviation (28.0-62.0) fl RDW Coeff of Edna (11.0-15.0) % Plt Count (150-400) K/uL MPV (7.40-12.00) fL Neut % (Auto) (48.0-80.0) % Lymph % (Auto) (16.0-40.0) % Brown % (Auto) (0.0-15.0) % Eos % (Auto) (0.0-7.0) % Baso % (Auto) (0.0-1.5) % Neut # (Auto) (1.4-5.7) K/uL Lymph # (Auto) (0.6-2.4) K/uL Brown # (Auto) (0.0-0.8) K/uL Eos # (Auto) (0.0-0.7) K/uL Baso # (Auto) (0.0-0.1) K/uL Nucleated RBC % /100WBC Nucleated RBCs # K/uL Sodium (136-148) mmol/L Potassium (3.5-5.1) mmol/L Chloride (98-107) mmol/L Carbon Dioxide (21.0-32.0) mmol/L BUN (7.0-18.0) mg/dL Creatinine (0.8-1.3) mg/dL Est Cr Clr Drug Dosing mL/min Estimated GFR (MDRD) ml/min Glucose (74-106) mg/dL POC Glucose 98 (70-99) mg/dL Calcium (8.5-10.1) mg/dL Total Bilirubin (0.2-1.0) mg/dL AST (15-37) IU/L ALT (14-63) IU/L Alkaline Phosphatase (46-116) U/L Total Protein (6.4-8.2) g/dL Albumin (3.4-5.0) g/dL Globulin (2.6-4.0) g/dL Albumin/Globulin Ratio (0.9-1.6) Result Diagrams: 10/31/20 05:25 10/31/20 05:25 Martell Results Last 24 hrs: Microbiology 10/28/20 17:24 Aerobic Blood Culture - Preliminary Blood - Venous - Lab Draw NO GROWTH AFTER 2 DAYS Anaerobic Blood Culture - Preliminary NO GROWTH AFTER 2 DAYS 10/28/20 17:15 Aerobic Blood Culture - Preliminary Blood - Venous NO GROWTH AFTER 2 DAYS Anaerobic Blood Culture - Preliminary NO GROWTH AFTER 2 DAYS Sepsis Event Note - Evaluation Sepsis Screening Result: No Definite Risk - Focused Exam Vital Signs: Vital Signs Temp Pulse Pulse Resp BP BP Pulse Ox 10/31/20 11:46 96.9 F 69 22 H 102/61 96 10/31/20 10:16 76 104/59 L 10/31/20 10:05 97.2 F 76 18 104/59 L 94 L 10/31/20 04:00 97.5 F 74 19 103/51 L 92 L - Problem List & Annotations (1) Atrial fibrillation SNOMED Code(s): 93122553 Code(s): I48.91 - UNSPECIFIED ATRIAL FIBRILLATION Status: Chronic Current Visit: No (2) Acute exacerbation of congestive heart failure SNOMED Code(s): 064582310, 16304411178922 Code(s): I50.9 - HEART FAILURE, UNSPECIFIED Status: Acute Current Visit: No Qualifiers: Heart failure type: unspecified Qualified Code(s): I50.9 - Heart failure, unspecified (3) Dementia SNOMED Code(s): 03342570 Code(s): F03.90 - UNSPECIFIED DEMENTIA WITHOUT BEHAVIORAL DISTURBANCE Status: Chronic Current Visit: No Qualifiers: Dementia type: unspecified type Dementia behavioral disturbance: without behavioral disturbance Qualified Code(s): F03.90 - Unspecified dementia without behavioral disturbance (4) Pneumonia SNOMED Code(s): 292536536 Code(s): J18.9 - PNEUMONIA, UNSPECIFIED ORGANISM Status: Acute Priority: High Current Visit: No Qualifiers: Qualified Code(s): J18.9 - Pneumonia, unspecified organism (5) Aspiration into respiratory tract SNOMED Code(s): 789315226 Code(s): T17.908A - UNSP FB IN RESP TRACT, PART UNSP CAUSING OTH INJURY, INIT Status: Acute Current Visit: Yes - Problem List Review Problem List Initiated/Reviewed/Updated: Yes - My Orders Last 24 Hours: My Active Orders 10/30/20 17:00 Insulin Aspart [NovoLOG] See Protocol SUBCUT TIDAC - Plan Plan:: 85-year-old male admitted for CHF and aspiration pneumonia currently on 2 L nasal cannula. We will wean his oxygen today. Continue azithromycin and ceftriaxone. Continue Eliquis. We will give IV Lasix 20 mg once. Patient's blood pressure is soft and we may consider lowering his metoprolol dosage. Incentive spirometry is encouraged. CODE STATUS remains DNR/DNI. Family is considering comfort care measures, but would like to proceed with medical management for now. <Carol Bolden - Last Filed: 11/01/20 14:41> - Patient Data Vitals - Most Recent: Last Vital Signs Temp 35.7 C L 11/01/20 12:00 Pulse 66 11/01/20 12:00 Resp 22 H 11/01/20 12:00 BP 96/68 11/01/20 12:00 Pulse Ox 96 11/01/20 12:00 I&O - Last 24 Hours: Intake & Output 10/31/20 11/01/20 11/01/20 22:59 06:59 14:59 Intake Total 980 200 Output Total 504 Balance 980 -304 Lab Results Last 24 Hours: Laboratory Results - last 24 hr 10/31/20 10/31/20 11/01/20 Range/Units 16:23 21:23 04:49 WBC 6.38 (4.0-11.0) K/uL RBC 4.67 (4.50-5.90) M/uL Hgb 13.4 (13.0-17.0) g/dL Hct 41.8 (38.0-50.0) % MCV 89.5 (80.0-98.0) fL MCH 28.7 (27.0-32.0) pg MCHC 32.1 (31.0-37.0) g/dL RDW Std Deviation 44.6 (28.0-62.0) fl RDW Coeff of Edna 14 (11.0-15.0) % Plt Count 192 (150-400) K/uL MPV 11.40 (7.40-12.00) fL Neut % (Auto) 55.8 (48.0-80.0) % Lymph % (Auto) 29.6 (16.0-40.0) % Brown % (Auto) 9.6 (0.0-15.0) % Eos % (Auto) 4.5 (0.0-7.0) % Baso % (Auto) 0.5 (0.0-1.5) % Neut # (Auto) 3.6 (1.4-5.7) K/uL Lymph # (Auto) 1.9 (0.6-2.4) K/uL Brown # (Auto) 0.6 (0.0-0.8) K/uL Eos # (Auto) 0.3 (0.0-0.7) K/uL Baso # (Auto) 0.0 (0.0-0.1) K/uL Nucleated RBC % 0.0 /100WBC Nucleated RBCs # 0 K/uL Sodium (136-148) mmol/L Potassium (3.5-5.1) mmol/L Chloride (98-107) mmol/L Carbon Dioxide (21.0-32.0) mmol/L BUN (7.0-18.0) mg/dL Creatinine (0.8-1.3) mg/dL Est Cr Clr Drug Dosing mL/min Estimated GFR (MDRD) ml/min Glucose (74-106) mg/dL POC Glucose 117 H 93 (70-99) mg/dL Calcium (8.5-10.1) mg/dL 11/01/20 11/01/20 11/01/20 Range/Units 04:49 06:39 11:08 WBC (4.0-11.0) K/uL RBC (4.50-5.90) M/uL Hgb (13.0-17.0) g/dL Hct (38.0-50.0) % MCV (80.0-98.0) fL MCH (27.0-32.0) pg MCHC (31.0-37.0) g/dL RDW Std Deviation (28.0-62.0) fl RDW Coeff of Edna (11.0-15.0) % Plt Count (150-400) K/uL MPV (7.40-12.00) fL Neut % (Auto) (48.0-80.0) % Lymph % (Auto) (16.0-40.0) % Brown % (Auto) (0.0-15.0) % Eos % (Auto) (0.0-7.0) % Baso % (Auto) (0.0-1.5) % Neut # (Auto) (1.4-5.7) K/uL Lymph # (Auto) (0.6-2.4) K/uL Brown # (Auto) (0.0-0.8) K/uL Eos # (Auto) (0.0-0.7) K/uL Baso # (Auto) (0.0-0.1) K/uL Nucleated RBC % /100WBC Nucleated RBCs # K/uL Sodium 142 (136-148) mmol/L Potassium 3.7 (3.5-5.1) mmol/L Chloride 106 (98-107) mmol/L Carbon Dioxide 31.7 (21.0-32.0) mmol/L BUN 25 H (7.0-18.0) mg/dL Creatinine 0.7 L (0.8-1.3) mg/dL Est Cr Clr Drug Dosing 87.76 mL/min Estimated GFR (MDRD) > 60.0 ml/min Glucose 99 (74-106) mg/dL POC Glucose 93 168 H (70-99) mg/dL Calcium 8.1 L (8.5-10.1) mg/dL [facility] Results Last 24 Hours: Microbiology 10/28/20 17:24 Aerobic Blood Culture - Preliminary Blood - Venous - Lab Draw NO GROWTH AFTER 3 DAYS Anaerobic Blood Culture - Preliminary NO GROWTH AFTER 3 DAYS 10/28/20 17:15 Aerobic Blood Culture - Preliminary Blood - Venous NO GROWTH AFTER 3 DAYS Anaerobic Blood Culture - Preliminary NO GROWTH AFTER 3 DAYS Med Orders - Current: Current Medications Albuterol/Ipratropium (Albuterol/Ipratropium 3.0-0.5 Mg/3 Ml Neb Soln) 3 ml NEB Q4HRRT PRN PRN Reason: Shortness Of Breath/wheezing Apixaban (Apixaban 5 Mg Tab) 5 mg PO BID [facility] Last Admin: 11/01/20 09:38 Dose: 5 mg Documented by: Benzonatate (Benzonatate 100 Mg Cap) 200 mg PO Q8H PRN PRN Reason: Cough Dextrose/Water (50% Dextrose In Water 50 Ml Syringe) 50 ml IVPUSH ASDIRECTED PRN PRN Reason: Hypoglycemia Fluoxetine HCl (Fluoxetine 20 Mg Cap) 20 mg PO DAILY [facility] Last Admin: 11/01/20 09:38 Dose: 20 mg Documented by: Glucagon (Glucagon,Human Recombinant 1 Mg Vial) 1 mg IM ASDIRECTED PRN PRN Reason: Hypoglycemia Ceftriaxone Sodium/Dextrose 1 (gm/ Premix) 50 mls @ 100 mls/hr IV Q24H [facility] Last Admin: 10/31/20 18:31 Dose: 100 mls/hr Documented by: Azithromycin 500 mg/ Sodium (Chloride) 250 mls @ 250 mls/hr IV Q24H [facility] Last Admin: 10/31/20 17:32 Dose: 250 mls/hr Documented by: Insulin Aspart (Insulin Aspart 100 Units/Ml 3 Ml Pen) 0 unit SUBCUT TIDAC [facility]; Protocol Last Admin: 11/01/20 12:20 Dose: 1 unit Documented by: Metoprolol Tartrate (Metoprolol Tartrate 25 Mg Tab) 12.5 mg PO BID [facility] Nystatin (Nystatin Topical Powder 15 Gm Bottle) 0 gm TOP QID PRN PRN Reason: Itching Last Admin: 10/29/20 11:13 Dose: 1 applic Documented by: Olanzapine (Olanzapine 5 Mg Tab) 10 mg PO BEDTIME [facility] Last Admin: 10/31/20 22:19 Dose: 10 mg Documented by: Polyethylene Glycol (Polyethylene Glycol 3350 Powder 17 Gm Packet) 17 gm PO DAILY PRN PRN Reason: Constipation Sodium Chloride (Sodium Chloride 0.9% 10 Ml Syringe) 10 ml FLUSH ASDIRECTED PRN PRN Reason: Keep Vein Open Last Admin: 10/28/20 15:55 Dose: 10 ml Documented by: Sodium Chloride (Sodium Chloride 0.9% 2.5 Ml Syringe) 2.5 ml FLUSH ASDIRECTED PRN PRN Reason: Keep Vein Open Last Admin: 10/28/20 15:55 Dose: 2.5 ml Documented by: Discontinued Medications Benzonatate (Benzonatate 100 Mg Cap) 200 mg PO ONETIME ONE Stop: 10/28/20 17:38 Last Admin: 10/28/20 18:00 Dose: 200 mg Documented by: Furosemide (Furosemide 20 Mg/2 Ml Vial) 60 mg IVPUSH ONETIME ONE Stop: 10/28/20 15:14 Last Admin: 10/28/20 15:50 Dose: 60 mg Documented by: Furosemide (Furosemide 20 Mg/2 Ml Vial) 20 mg IVPUSH ONETIME ONE Stop: 10/31/20 11:42 Last Admin: 10/31/20 12:01 Dose: 20 mg Documented by: Furosemide (Furosemide 20 Mg/2 Ml Vial) 20 mg IVPUSH NOW ONE Stop: 11/01/20 12:31 Last Admin: 11/01/20 13:41 Dose: 20 mg Documented by: Azithromycin 500 mg/ Sodium (Chloride) 250 mls @ 250 mls/hr IV ONETIME [facility] Ceftriaxone Sodium/Dextrose 1 (gm/ Premix) 50 mls @ 100 mls/hr IV ONETIME ONE Stop: 10/28/20 17:32 Last Admin: 10/28/20 17:57 Dose: 100 mls/hr Documented by: Azithromycin 500 mg/ Sodium (Chloride) 250 mls @ 250 mls/hr IV ONETIME ONE Stop: 10/28/20 17:59 Last Admin: 10/28/20 19:39 Dose: 250 mls/hr Documented by: Iopamidol (Iopamidol 755 Mg/Ml 100 Ml Bottle) 100 ml IVPUSH ONETIME ONE Stop: 10/29/20 00:37 Last Admin: 10/29/20 00:51 Dose: 100 ml Documented by: Losartan Potassium (Losartan 50 Mg Tab) 50 mg PO DAILY [facility] Last Admin: 10/29/20 10:10 Dose: Not Given Documented by: Metoprolol Tartrate (Metoprolol Tartrate 25 Mg Tab) 25 mg PO BID [facility] Last Admin: 11/01/20 09:38 Dose: 25 mg Documented by: Metoprolol Tartrate (Metoprolol Tartrate 5 Mg/5 Ml Sdv) 5 mg IVPUSH ONETIME ONE Stop: 10/28/20 20:36 Last Admin: 10/28/20 21:07 Dose: 5 mg Documented by: Potassium Chloride (Potassium Chloride 20 Meq Tab.Er) 20 meq PO BIDMEALS JACKIE Last Admin: 10/28/20 21:19 Dose: Not Given Documented by: - Patient Data Lab Results Last 24 hrs: Laboratory Results - last 24 hr 10/31/20 10/31/20 11/01/20 Range/Units 16:23 21:23 04:49 WBC 6.38 (4.0-11.0) K/uL RBC 4.67 (4.50-5.90) M/uL Hgb 13.4 (13.0-17.0) g/dL Hct 41.8 (38.0-50.0) % MCV 89.5 (80.0-98.0) fL MCH 28.7 (27.0-32.0) pg MCHC 32.1 (31.0-37.0) g/dL RDW Std Deviation 44.6 (28.0-62.0) fl RDW Coeff of Edna 14 (11.0-15.0) % Plt Count 192 (150-400) K/uL MPV 11.40 (7.40-12.00) fL Neut % (Auto) 55.8 (48.0-80.0) % Lymph % (Auto) 29.6 (16.0-40.0) % Brown % (Auto) 9.6 (0.0-15.0) % Eos % (Auto) 4.5 (0.0-7.0) % Baso % (Auto) 0.5 (0.0-1.5) % Neut # (Auto) 3.6 (1.4-5.7) K/uL Lymph # (Auto) 1.9 (0.6-2.4) K/uL Brown # (Auto) 0.6 (0.0-0.8) K/uL Eos # (Auto) 0.3 (0.0-0.7) K/uL Baso # (Auto) 0.0 (0.0-0.1) K/uL Nucleated RBC % 0.0 /100WBC Nucleated RBCs # 0 K/uL Sodium (136-148) mmol/L Potassium (3.5-5.1) mmol/L Chloride (98-107) mmol/L Carbon Dioxide (21.0-32.0) mmol/L BUN (7.0-18.0) mg/dL Creatinine (0.8-1.3) mg/dL Est Cr Clr Drug Dosing mL/min Estimated GFR (MDRD) ml/min Glucose (74-106) mg/dL POC Glucose 117 H 93 (70-99) mg/dL Calcium (8.5-10.1) mg/dL 11/01/20 11/01/20 11/01/20 Range/Units 04:49 06:39 11:08 WBC (4.0-11.0) K/uL RBC (4.50-5.90) M/uL Hgb (13.0-17.0) g/dL Hct (38.0-50.0) % MCV (80.0-98.0) fL MCH (27.0-32.0) pg MCHC (31.0-37.0) g/dL RDW Std Deviation (28.0-62.0) fl RDW Coeff of Edna (11.0-15.0) % Plt Count (150-400) K/uL MPV (7.40-12.00) fL Neut % (Auto) (48.0-80.0) % Lymph % (Auto) (16.0-40.0) % Brown % (Auto) (0.0-15.0) % Eos % (Auto) (0.0-7.0) % Baso % (Auto) (0.0-1.5) % Neut # (Auto) (1.4-5.7) K/uL Lymph # (Auto) (0.6-2.4) K/uL Brown # (Auto) (0.0-0.8) K/uL Eos # (Auto) (0.0-0.7) K/uL Baso # (Auto) (0.0-0.1) K/uL Nucleated RBC % /100WBC Nucleated RBCs # K/uL Sodium 142 (136-148) mmol/L Potassium 3.7 (3.5-5.1) mmol/L Chloride 106 (98-107) mmol/L Carbon Dioxide 31.7 (21.0-32.0) mmol/L BUN 25 H (7.0-18.0) mg/dL Creatinine 0.7 L (0.8-1.3) mg/dL Est Cr Clr Drug Dosing 87.76 mL/min Estimated GFR (MDRD) > 60.0 ml/min Glucose 99 (74-106) mg/dL POC Glucose 93 168 H (70-99) mg/dL Calcium 8.1 L (8.5-10.1) mg/dL Result Diagrams: 11/01/20 04:49 11/01/20 04:49 [facility]ell Results Last 24 hrs: Microbiology 10/28/20 17:24 Aerobic Blood Culture - Preliminary Blood - Venous - Lab Draw NO GROWTH AFTER 3 DAYS Anaerobic Blood Culture - Preliminary NO GROWTH AFTER 3 DAYS 10/28/20 17:15 Aerobic Blood Culture - Preliminary Blood - Venous NO GROWTH AFTER 3 DAYS Anaerobic Blood Culture - Preliminary NO GROWTH AFTER 3 DAYS Sepsis Event Note - Focused Exam Vital Signs: Vital Signs Temp Pulse Pulse Resp BP BP Pulse Ox 11/01/20 12:00 35.7 C L 66 22 H 96/68 96 11/01/20 09:38 76 109/60 11/01/20 08:00 36.1 C 72 20 97/53 L 94 L 11/01/20 04:00 36.3 C 19 112/61 94 L - Plan Plan:: I have seen and evaluated the patient and agree with the residents note unless specified in my note
[2020-10-31] MEDS: Azithromycin 500 MG in Sodium Chloride 0.9% 250 ML IV SCH (17:32)
[2020-10-31] MEDS: cefTRIAXone 1 GM in Premix Bag 1 BAG IV SCH (18:31)
[2020-10-31] MEDS: OLANZapine 5 MG Tab PO SCH (22:19)
[2020-11-01 05:49] LABS: BLOOD UREA NITROGEN,BUN 25 mg/dL (7.0-18.0); CARBON DIOXIDE,CO2 31.7 mmol/L (21.0-32.0); CHLORIDE,CL 106 mmol/L (98-107); GLUCOSE RANDOM 99 mg/dL (74-106); POTASSIUM,K 3.7 mmol/L (3.5-5.1); SODIUM,NA 142 mmol/L (136-148)
[2020-11-01] MEDS: Insulin Aspart 100 Units/ML 3 ML Pen SUBCUT SCH ×3 (08:51→17:30)
[2020-11-01] MEDS: Metoprolol Tartrate 25 MG Tab PO SCH ×2 (09:38→20:58)
[2020-11-01] MEDS: FLUoxetine 20 MG Cap PO SCH (09:38)
[2020-11-01] MEDS: Apixaban 5 MG Tab PO SCH ×2 (09:38→20:57)
[2020-11-01] MEDS ORDERED: Furosemide 20 MG/2 ML VIAL IVPUSH ONE (12:30)
--- NOTE | 2020-11-01 15:07 | PCM.PN ---
<Arianna Watts - Last Filed: 11/01/20 18:21> - General Info Date of Service: 11/01/20 Admission Dx/Problem (Free Text): Admission Diagnosis/Problem Admission Diagnosis/Problem CHF, Congestive heart failure Subjective Update: 85-year-old male with history of A. fib, dysphagia and strokes is admitted for aspiration pneumonia and CHF exacerbation. Anticoagulated with Eliquis. Patient is not on IV fluids. Patient is on azithromycin and ceftriaxone. Patient was given IV Lasix once yesterday and his pedal edema improved. Patient was weaned down to 1 L nasal cannula. This morning he states he feels better. Patient would like to drink cold juice or water. Patient denies chest pain, shortness of breath, dyspnea, palpitations or abdominal pain. Patient denies cough. Patient continues on a soft mechanical diet as his POA states they are still deciding about comfort care measures. - Review of Systems General: Reports: No Symptoms HEENT: Reports: No Symptoms Pulmonary: Reports: No Symptoms Cardiovascular: Reports: No Symptoms Gastrointestinal: Reports: No Symptoms Genitourinary: Reports: No Symptoms Musculoskeletal: Reports: No Symptoms - Patient Data Vitals - Most Recent: Last Vital Signs Temp 96.3 F L 11/01/20 12:00 Pulse 66 11/01/20 12:00 Resp 22 H 11/01/20 12:00 BP 96/68 11/01/20 12:00 Pulse Ox 96 11/01/20 12:00 Weight - Most Recent: 110 kg I&O - Last 24 Hours: Intake & Output 11/01/20 11/01/20 11/01/20 06:59 14:59 22:59 Intake Total 200 Output Total 504 Balance -304 Lab Results Last 24 Hours: Laboratory Results - last 24 hr 10/31/20 10/31/20 11/01/20 Range/Units 16:23 21:23 04:49 WBC 6.38 (4.0-11.0) K/uL RBC 4.67 (4.50-5.90) M/uL Hgb 13.4 (13.0-17.0) g/dL Hct 41.8 (38.0-50.0) % MCV 89.5 (80.0-98.0) fL MCH 28.7 (27.0-32.0) pg MCHC 32.1 (31.0-37.0) g/dL RDW Std Deviation 44.6 (28.0-62.0) fl RDW Coeff of Edna 14 (11.0-15.0) % Plt Count 192 (150-400) K/uL MPV 11.40 (7.40-12.00) fL Neut % (Auto) 55.8 (48.0-80.0) % Lymph % (Auto) 29.6 (16.0-40.0) % Caroline % (Auto) 9.6 (0.0-15.0) % Eos % (Auto) 4.5 (0.0-7.0) % Baso % (Auto) 0.5 (0.0-1.5) % Neut # (Auto) 3.6 (1.4-5.7) K/uL Lymph # (Auto) 1.9 (0.6-2.4) K/uL Caroline # (Auto) 0.6 (0.0-0.8) K/uL Eos # (Auto) 0.3 (0.0-0.7) K/uL Baso # (Auto) 0.0 (0.0-0.1) K/uL Nucleated RBC % 0.0 /100WBC Nucleated RBCs # 0 K/uL Sodium (136-148) mmol/L Potassium (3.5-5.1) mmol/L Chloride (98-107) mmol/L Carbon Dioxide (21.0-32.0) mmol/L BUN (7.0-18.0) mg/dL Creatinine (0.8-1.3) mg/dL Est Cr Clr Drug Dosing mL/min Estimated GFR (MDRD) ml/min Glucose (74-106) mg/dL POC Glucose 117 H 93 (70-99) mg/dL Calcium (8.5-10.1) mg/dL 11/01/20 11/01/20 11/01/20 Range/Units 04:49 06:39 11:08 WBC (4.0-11.0) K/uL RBC (4.50-5.90) M/uL Hgb (13.0-17.0) g/dL Hct (38.0-50.0) % MCV (80.0-98.0) fL MCH (27.0-32.0) pg MCHC (31.0-37.0) g/dL RDW Std Deviation (28.0-62.0) fl RDW Coeff of Edna (11.0-15.0) % Plt Count (150-400) K/uL MPV (7.40-12.00) fL Neut % (Auto) (48.0-80.0) % Lymph % (Auto) (16.0-40.0) % Caroline % (Auto) (0.0-15.0) % Eos % (Auto) (0.0-7.0) % Baso % (Auto) (0.0-1.5) % Neut # (Auto) (1.4-5.7) K/uL Lymph # (Auto) (0.6-2.4) K/uL Caroline # (Auto) (0.0-0.8) K/uL Eos # (Auto) (0.0-0.7) K/uL Baso # (Auto) (0.0-0.1) K/uL Nucleated RBC % /100WBC Nucleated RBCs # K/uL Sodium 142 (136-148) mmol/L Potassium 3.7 (3.5-5.1) mmol/L Chloride 106 (98-107) mmol/L Carbon Dioxide 31.7 (21.0-32.0) mmol/L BUN 25 H (7.0-18.0) mg/dL Creatinine 0.7 L (0.8-1.3) mg/dL Est Cr Clr Drug Dosing 87.76 mL/min Estimated GFR (MDRD) > 60.0 ml/min Glucose 99 (74-106) mg/dL POC Glucose 93 168 H (70-99) mg/dL Calcium 8.1 L (8.5-10.1) mg/dL Martell Results Last 24 Hours: Microbiology 10/28/20 17:24 Aerobic Blood Culture - Preliminary Blood - Venous - Lab Draw NO GROWTH AFTER 3 DAYS Anaerobic Blood Culture - Preliminary NO GROWTH AFTER 3 DAYS 10/28/20 17:15 Aerobic Blood Culture - Preliminary Blood - Venous NO GROWTH AFTER 3 DAYS Anaerobic Blood Culture - Preliminary NO GROWTH AFTER 3 DAYS Med Orders - Current: Current Medications Albuterol/Ipratropium (Albuterol/Ipratropium 3.0-0.5 Mg/3 Ml Neb Soln) 3 ml NEB Q4HRRT PRN PRN Reason: Shortness Of Breath/wheezing Apixaban (Apixaban 5 Mg Tab) 5 mg PO BID [facility] Last Admin: 11/01/20 09:38 Dose: 5 mg Documented by: Benzonatate (Benzonatate 100 Mg Cap) 200 mg PO Q8H PRN PRN Reason: Cough Dextrose/Water (50% Dextrose In Water 50 Ml Syringe) 50 ml IVPUSH ASDIRECTED PRN PRN Reason: Hypoglycemia Fluoxetine HCl (Fluoxetine 20 Mg Cap) 20 mg PO DAILY [facility] Last Admin: 11/01/20 09:38 Dose: 20 mg Documented by: Glucagon (Glucagon,Human Recombinant 1 Mg Vial) 1 mg IM ASDIRECTED PRN PRN Reason: Hypoglycemia Ceftriaxone Sodium/Dextrose 1 (gm/ Premix) 50 mls @ 100 mls/hr IV Q24H [facility] Last Admin: 10/31/20 18:31 Dose: 100 mls/hr Documented by: Azithromycin 500 mg/ Sodium (Chloride) 250 mls @ 250 mls/hr IV Q24H [facility] Last Admin: 10/31/20 17:32 Dose: 250 mls/hr Documented by: Insulin Aspart (Insulin Aspart 100 Units/Ml 3 Ml Pen) 0 unit SUBCUT TIDAC [facility]; Protocol Last Admin: 11/01/20 12:20 Dose: 1 unit Documented by: Metoprolol Tartrate (Metoprolol Tartrate 25 Mg Tab) 12.5 mg PO BID [facility] Nystatin (Nystatin Topical Powder 15 Gm Bottle) 0 gm TOP QID PRN PRN Reason: Itching Last Admin: 10/29/20 11:13 Dose: 1 applic Documented by: Olanzapine (Olanzapine 5 Mg Tab) 10 mg PO BEDTIME [facility] Last Admin: 10/31/20 22:19 Dose: 10 mg Documented by: Polyethylene Glycol (Polyethylene Glycol 3350 Powder 17 Gm Packet) 17 gm PO DAILY PRN PRN Reason: Constipation Sodium Chloride (Sodium Chloride 0.9% 10 Ml Syringe) 10 ml FLUSH ASDIRECTED PRN PRN Reason: Keep Vein Open Last Admin: 10/28/20 15:55 Dose: 10 ml Documented by: Sodium Chloride (Sodium Chloride 0.9% 2.5 Ml Syringe) 2.5 ml FLUSH ASDIRECTED P RN PRN Reason: Keep Vein Open Last Admin: 10/28/20 15:55 Dose: 2.5 ml Documented by: Discontinued Medications Benzonatate (Benzonatate 100 Mg Cap) 200 mg PO ONETIME ONE Stop: 10/28/20 17:38 Last Admin: 10/28/20 18:00 Dose: 200 mg Documented by: Furosemide (Furosemide 20 Mg/2 Ml Vial) 60 mg IVPUSH ONETIME ONE Stop: 10/28/20 15:14 Last Admin: 10/28/20 15:50 Dose: 60 mg Documented by: Furosemide (Furosemide 20 Mg/2 Ml Vial) 20 mg IVPUSH ONETIME ONE Stop: 10/31/20 11:42 Last Admin: 10/31/20 12:01 Dose: 20 mg Documented by: Furosemide (Furosemide 20 Mg/2 Ml Vial) 20 mg IVPUSH NOW ONE Stop: 11/01/20 12:31 Last Admin: 11/01/20 13:41 Dose: 20 mg Documented by: Azithromycin 500 mg/ Sodium (Chloride) 250 mls @ 250 mls/hr IV ONETIME JACKIE Ceftriaxone Sodium/Dextrose 1 (gm/ Premix) 50 mls @ 100 mls/hr IV ONETIME ONE Stop: 10/28/20 17:32 Last Admin: 10/28/20 17:57 Dose: 100 mls/hr Documented by: Azithromycin 500 mg/ Sodium (Chloride) 250 mls @ 250 mls/hr IV ONETIME ONE Stop: 10/28/20 17:59 Last Admin: 10/28/20 19:39 Dose: 250 mls/hr Documented by: Iopamidol (Iopamidol 755 Mg/Ml 100 Ml Bottle) 100 ml IVPUSH ONETIME ONE Stop: 10/29/20 00:37 Last Admin: 10/29/20 00:51 Dose: 100 ml Documented by: Losartan Potassium (Losartan 50 Mg Tab) 50 mg PO DAILY [facility] Last Admin: 10/29/20 10:10 Dose: Not Given Documented by: Metoprolol Tartrate (Metoprolol Tartrate 25 Mg Tab) 25 mg PO BID [facility] Last Admin: 11/01/20 09:38 Dose: 25 mg Documented by: Metoprolol Tartrate (Metoprolol Tartrate 5 Mg/5 Ml Sdv) 5 mg IVPUSH ONETIME ONE Stop: 10/28/20 20:36 Last Admin: 10/28/20 21:07 Dose: 5 mg Documented by: Potassium Chloride (Potassium Chloride 20 Meq Tab.Er) 20 meq PO BIDMEALS JACKIE Last Admin: 10/28/20 21:19 Dose: Not Given Documented by: - Exam Quality Assessment: Supplemental Oxygen General: Alert, Cooperative, No Acute Distress HEENT: Pupils Reactive Neck: Supple, No JVD Lungs: Crackles (Improved) Cardiovascular: Regular Rate, No Murmurs GI/Abdominal Exam: Normal Bowel Sounds, Soft, Non-Tender, No Distention. No: Guarding Extremities: No Pedal Edema. No: Svitlana's Sign, Leg Pain Peripheral Pulses: 2+: Dorsalis Pedis (L), Dorsalis Pedis (R) Neurological: No New Focal Deficit - Patient Data Lab Results Last 24 hrs: Laboratory Results - last 24 hr 10/31/20 10/31/20 11/01/20 Range/Units 16:23 21:23 04:49 WBC 6.38 (4.0-11.0) K/uL RBC 4.67 (4.50-5.90) M/uL Hgb 13.4 (13.0-17.0) g/dL Hct 41.8 (38.0-50.0) % MCV 89.5 (80.0-98.0) fL MCH 28.7 (27.0-32.0) pg MCHC 32.1 (31.0-37.0) g/dL RDW Std Deviation 44.6 (28.0-62.0) fl RDW Coeff of Edna 14 (11.0-15.0) % Plt Count 192 (150-400) K/uL MPV 11.40 (7.40-12.00) fL Neut % (Auto) 55.8 (48.0-80.0) % Lymph % (Auto) 29.6 (16.0-40.0) % Caroline % (Auto) 9.6 (0.0-15.0) % Eos % (Auto) 4.5 (0.0-7.0) % Baso % (Auto) 0.5 (0.0-1.5) % Neut # (Auto) 3.6 (1.4-5.7) K/uL Lymph # (Auto) 1.9 (0.6-2.4) K/uL Caroline # (Auto) 0.6 (0.0-0.8) K/uL Eos # (Auto) 0.3 (0.0-0.7) K/uL Baso # (Auto) 0.0 (0.0-0.1) K/uL Nucleated RBC % 0.0 /100WBC Nucleated RBCs # 0 K/uL Sodium (136-148) mmol/L Potassium (3.5-5.1) mmol/L Chloride (98-107) mmol/L Carbon Dioxide (21.0-32.0) mmol/L BUN (7.0-18.0) mg/dL Creatinine (0.8-1.3) mg/dL Est Cr Clr Drug Dosing mL/min Estimated GFR (MDRD) ml/min Glucose (74-106) mg/dL POC Glucose 117 H 93 (70-99) mg/dL Calcium (8.5-10.1) mg/dL 11/01/20 11/01/20 11/01/20 Range/Units 04:49 06:39 11:08 WBC (4.0-11.0) K/uL RBC (4.50-5.90) M/uL Hgb (13.0-17.0) g/dL Hct (38.0-50.0) % MCV (80.0-98.0) fL MCH (27.0-32.0) pg MCHC (31.0-37.0) g/dL RDW Std Deviation (28.0-62.0) fl RDW Coeff of Edna (11.0-15.0) % Plt Count (150-400) K/uL MPV (7.40-12.00) fL Neut % (Auto) (48.0-80.0) % Lymph % (Auto) (16.0-40.0) % Caroline % (Auto) (0.0-15.0) % Eos % (Auto) (0.0-7.0) % Baso % (Auto) (0.0-1.5) % Neut # (Auto) (1.4-5.7) K/uL Lymph # (Auto) (0.6-2.4) K/uL Caroline # (Auto) (0.0-0.8) K/uL Eos # (Auto) (0.0-0.7) K/uL Baso # (Auto) (0.0-0.1) K/uL Nucleated RBC % /100WBC Nucleated RBCs # K/uL Sodium 142 (136-148) mmol/L Potassium 3.7 (3.5-5.1) mmol/L Chloride 106 (98-107) mmol/L Carbon Dioxide 31.7 (21.0-32.0) mmol/L BUN 25 H (7.0-18.0) mg/dL Creatinine 0.7 L (0.8-1.3) mg/dL Est Cr Clr Drug Dosing 87.76 mL/min Estimated GFR (MDRD) > 60.0 ml/min Glucose 99 (74-106) mg/dL POC Glucose 93 168 H (70-99) mg/dL Calcium 8.1 L (8.5-10.1) mg/dL Result Diagrams: 11/01/20 04:49 11/01/20 04:49 Martell Results Last 24 hrs: Microbiology 10/28/20 17:24 Aerobic Blood Culture - Preliminary Blood - Venous - Lab Draw NO GROWTH AFTER 3 DAYS Anaerobic Blood Culture - Preliminary NO GROWTH AFTER 3 DAYS 10/28/20 17:15 Aerobic Blood Culture - Preliminary Blood - Venous NO GROWTH AFTER 3 DAYS Anaerobic Blood Culture - Preliminary NO GROWTH AFTER 3 DAYS Sepsis Event Note - Evaluation Sepsis Screening Result: No Definite Risk - Focused Exam Vital Signs: Vital Signs Temp Pulse Pulse Resp BP BP Pulse Ox 11/01/20 12:00 96.3 F L 66 22 H 96/68 96 11/01/20 09:38 76 109/60 11/01/20 08:00 96.9 F 72 20 97/53 L 94 L 11/01/20 04:00 97.4 F 19 112/61 94 L - Problem List & Annotations (1) Atrial fibrillation SNOMED Code(s): 97800150 Code(s): I48.91 - UNSPECIFIED ATRIAL FIBRILLATION Status: Chronic Current Visit: No (2) Acute exacerbation of congestive heart failure SNOMED Code(s): 039056821, 60191365330393 Code(s): I50.9 - HEART FAILURE, UNSPECIFIED Status: Acute Current Visit: No Qualifiers: Heart failure type: unspecified Qualified Code(s): I50.9 - Heart failure, unspecified (3) Dementia SNOMED Code(s): 14757729 Code(s): F03.90 - UNSPECIFIED DEMENTIA WITHOUT BEHAVIORAL DISTURBANCE Status: Chronic Current Visit: No Qualifiers: Dementia type: unspecified type Dementia behavioral disturbance: without behavioral disturbance Qualified Code(s): F03.90 - Unspecified dementia without behavioral disturbance (4) Pneumonia SNOMED Code(s): 869201341 Code(s): J18.9 - PNEUMONIA, UNSPECIFIED ORGANISM Status: Acute Priority: High Current Visit: No Qualifiers: Qualified Code(s): J18.9 - Pneumonia, unspecified organism (5) Aspiration into respiratory tract SNOMED Code(s): 943786788 Code(s): T17.908A - UNSP FB IN RESP TRACT, PART UNSP CAUSING OTH INJURY, INIT Status: Acute Current Visit: Yes - Problem List Review Problem List Initiated/Reviewed/Updated: Yes - My Orders Last 24 Hours: My Active Orders 11/01/20 21:00 Metoprolol Tartrate [Lopressor] 12.5 mg PO BID 11/02/20 08:10 Daily Weight [Height and Weight] [RC] DAILY - Plan Plan:: I have seen and evaluated the patient and agree with the residents note unless specified in my note 89-year-old male admitted for aspiration pneumonia and CHF exacerbation currently on azithromycin and ceftriaxone. History of A. fib on Eliquis. Patient's oxygen was weaned down to 1 L. Patient had a bowel movement. This morning the patient fluid overload has improved with improvement of his crackles and no pedal edema. Patient encouraged to work with physical therapy. We will give another dose of Lasix 20 mg once. Patient's blood pressures have been soft so we will decrease his metoprolol to 12.5 mg twice daily. Patient's family is still deciding about his goals of care. I had to lengthy discussions with BLAKE Mccord. She is waiting to hear back from [facility]. <Carol Bolden - Last Filed: 11/02/20 13:02> - Patient Data Vitals - Most Recent: Last Vital Signs Temp 36.4 C 11/02/20 12:04 Pulse 69 11/02/20 12:04 Resp 18 11/02/20 12:04 BP 98/59 L 11/02/20 12:04 Pulse Ox 95 11/02/20 12:04 I&O - Last 24 Hours: Intake & Output 11/01/20 11/02/20 11/02/20 22:59 06:59 14:59 Intake Total 880 700 Output Total 2437 Balance -1557 700 Lab Results Last 24 Hours: Laboratory Results - last 24 hr 11/02/20 11/02/20 11/02/20 Range/Units 05:38 05:38 05:38 WBC 6.78 (4.0-11.0) K/uL RBC 4.61 (4.50-5.90) M/uL Hgb 13.2 (13.0-17.0) g/dL Hct 41.0 (38.0-50.0) % MCV 88.9 (80.0-98.0) fL MCH 28.6 (27.0-32.0) pg MCHC 32.2 (31.0-37.0) g/dL RDW Std Deviation 43.5 (28.0-62.0) fl RDW Coeff of Edna 13 (11.0-15.0) % Plt Count 177 (150-400) K/uL MPV 11.50 (7.40-12.00) fL Nucleated RBC % 0.0 /100WBC Nucleated RBCs # 0 K/uL Sodium 142 (136-148) mmol/L Potassium 3.7 (3.5-5.1) mmol/L Chloride 107 (98-107) mmol/L Carbon Dioxide 30.6 (21.0-32.0) mmol/L BUN 24 H (7.0-18.0) mg/dL Creatinine 0.7 L (0.8-1.3) mg/dL Est Cr Clr Drug Dosing 87.76 mL/min Estimated GFR (MDRD) > 60.0 ml/min Glucose 96 (74-106) mg/dL POC Glucose (70-99) mg/dL Calcium 8.1 L (8.5-10.1) mg/dL Magnesium 2.0 (1.8-2.4) mg/dL SARS-CoV-2 RNA (ISABEL) (NEGATIVE) 11/02/20 11/02/20 11/02/20 Range/Units 06:34 11:47 11:50 WBC (4.0-11.0) K/uL RBC (4.50-5.90) M/uL Hgb (13.0-17.0) g/dL Hct (38.0-50.0) % MCV (80.0-98.0) fL MCH (27.0-32.0) pg MCHC (31.0-37.0) g/dL RDW Std Deviation (28.0-62.0) fl RDW Coeff of Edna (11.0-15.0) % Plt Count (150-400) K/uL MPV (7.40-12.00) fL Nucleated RBC % /100WBC Nucleated RBCs # K/uL Sodium (136-148) mmol/L Potassium (3.5-5.1) mmol/L Chloride (98-107) mmol/L Carbon Dioxide (21.0-32.0) mmol/L BUN (7.0-18.0) mg/dL Creatinine (0.8-1.3) mg/dL Est Cr Clr Drug Dosing mL/min Estimated GFR (MDRD) ml/min Glucose (74-106) mg/dL POC Glucose 94 110 H (70-99) mg/dL Calcium (8.5-10.1) mg/dL Magnesium (1.8-2.4) mg/dL SARS-CoV-2 RNA (ISABEL) NEGATIVE (NEGATIVE) Martell Results Last 24 Hours: Microbiology 10/28/20 17:24 Aerobic Blood Culture - Preliminary Blood - Venous - Lab Draw NO GROWTH AFTER 4 DAYS Anaerobic Blood Culture - Preliminary NO GROWTH AFTER 4 DAYS 10/28/20 17:15 Aerobic Blood Culture - Preliminary Blood - Venous NO GROWTH AFTER 4 DAYS Anaerobic Blood Culture - Preliminary NO GROWTH AFTER 4 DAYS Med Orders - Current: Current Medications Albuterol/Ipratropium (Albuterol/Ipratropium 3.0-0.5 Mg/3 Ml Neb Soln) 3 ml NEB Q4HRRT PRN PRN Reason: Shortness Of Breath/wheezing Apixaban (Apixaban 5 Mg Tab) 5 mg PO BID [facility] Last Admin: 11/02/20 09:59 Dose: 5 mg Documented by: Benzonatate (Benzonatate 100 Mg Cap) 200 mg PO Q8H PRN PRN Reason: Cough Dextrose/Water (50% Dextrose In Water 50 Ml Syringe) 50 ml IVPUSH ASDIRECTED PRN PRN Reason: Hypoglycemia Fluoxetine HCl (Fluoxetine 20 Mg Cap) 20 mg PO DAILY [facility] Last Admin: 11/02/20 09:59 Dose: 20 mg Documented by: Furosemide (Furosemide 40 Mg/4 Ml Vial) 20 mg IVPUSH NOW ONE Stop: 11/02/20 12:38 Glucagon (Glucagon,Human Recombinant 1 Mg Vial) 1 mg IM ASDIRECTED PRN PRN Reason: Hypoglycemia Ceftriaxone Sodium/Dextrose 1 (gm/ Premix) 50 mls @ 100 mls/hr IV Q24H [facility] Last Admin: 11/01/20 17:35 Dose: 100 mls/hr Documented by: Azithromycin 500 mg/ Sodium (Chloride) 250 mls @ 250 mls/hr IV Q24H [facility] Last Admin: 11/01/20 16:32 Dose: 250 mls/hr Documented by: Insulin Aspart (Insulin Aspart 100 Units/Ml 3 Ml Pen) 0 unit SUBCUT TIDAC [facility]; Protocol Last Admin: 11/02/20 06:44 Dose: Not Given Documented by: Metoprolol Tartrate (Metoprolol Tartrate 25 Mg Tab) 12.5 mg PO BID [facility] Last Admin: 11/02/20 09:59 Dose: 12.5 mg Documented by: Nystatin (Nystatin Topical Powder 15 Gm Bottle) 0 gm TOP QID PRN PRN Reason: Itching Last Admin: 10/29/20 11:13 Dose: 1 applic Documented by: Olanzapine (Olanzapine 5 Mg Tab) 10 mg PO BEDTIME [facility] Last Admin: 11/01/20 20:57 Dose: 10 mg Documented by: Polyethylene Glycol (Polyethylene Glycol 3350 Powder 17 Gm Packet) 17 gm PO DAILY PRN PRN Reason: Constipation Sodium Chloride (Sodium Chloride 0.9% 10 Ml Syringe) 10 ml FLUSH ASDIRECTED PRN PRN Reason: Keep Vein Open Last Admin: 10/28/20 15:55 Dose: 10 ml Documented by: Sodium Chloride (Sodium Chloride 0.9% 2.5 Ml Syringe) 2.5 ml FLUSH ASDIRECTED PRN PRN Reason: Keep Vein Open Last Admin: 10/28/20 15:55 Dose: 2.5 ml Documented by: Discontinued Medications Benzonatate (Benzonatate 100 Mg Cap) 200 mg PO ONETIME ONE Stop: 10/28/20 17:38 Last Admin: 10/28/20 18:00 Dose: 200 mg Documented by: Furosemide (Furosemide 20 Mg/2 Ml Vial) 60 mg IVPUSH ONETIME ONE Stop: 10/28/20 15:14 Last Admin: 10/28/20 15:50 Dose: 60 mg Documented by: Furosemide (Furosemide 20 Mg/2 Ml Vial) 20 mg IVPUSH ONETIME ONE Stop: 10/31/20 11:42 Last Admin: 10/31/20 12:01 Dose: 20 mg Documented by: Furosemide (Furosemide 20 Mg/2 Ml Vial) 20 mg IVPUSH NOW ONE Stop: 11/01/20 12:31 Last Admin: 11/01/20 13:41 Dose: 20 mg Documented by: Azithromycin 500 mg/ Sodium (Chloride) 250 mls @ 250 mls/hr IV ONETIME JACKIE Ceftriaxone Sodium/Dextrose 1 (gm/ Premix) 50 mls @ 100 mls/hr IV ONETIME ONE Stop: 10/28/20 17:32 Last Admin: 10/28/20 17:57 Dose: 100 mls/hr Documented by: Azithromycin 500 mg/ Sodium (Chloride) 250 mls @ 250 mls/hr IV ONETIME ONE Stop: 10/28/20 17:59 Last Admin: 10/28/20 19:39 Dose: 250 mls/hr Documented by: Iopamidol (Iopamidol 755 Mg/Ml 100 Ml Bottle) 100 ml IVPUSH ONETIME ONE Stop: 10/29/20 00:37 Last Admin: 10/29/20 00:51 Dose: 100 ml Documented by: Losartan Potassium (Losartan 50 Mg Tab) 50 mg PO DAILY [facility] Last Admin: 10/29/20 10:10 Dose: Not Given Documented by: Metoprolol Tartrate (Metoprolol Tartrate 25 Mg Tab) 25 mg PO BID [facility] Last Admin: 11/01/20 09:38 Dose: 25 mg Documented by: Metoprolol Tartrate (Metoprolol Tartrate 5 Mg/5 Ml Sdv) 5 mg IVPUSH ONETIME ONE Stop: 10/28/20 20:36 Last Admin: 10/28/20 21:07 Dose: 5 mg Documented by: Potassium Chloride (Potassium Chloride 20 Meq Tab.Er) 20 meq PO BIDMEALS [facility] Last Admin: 10/28/20 21:19 Dose: Not Given Documented by: - Patient Data Lab Results Last 24 hrs: Laboratory Results - last 24 hr 11/02/20 11/02/20 11/02/20 Range/Units 05:38 05:38 05:38 WBC 6.78 (4.0-11.0) K/uL RBC 4.61 (4.50-5.90) M/uL Hgb 13.2 (13.0-17.0) g/dL Hct 41.0 (38.0-50.0) % MCV 88.9 (80.0-98.0) fL MCH 28.6 (27.0-32.0) pg MCHC 32.2 (31.0-37.0) g/dL RDW Std Deviation 43.5 (28.0-62.0) fl RDW Coeff of Edna 13 (11.0-15.0) % Plt Count 177 (150-400) K/uL MPV 11.50 (7.40-12.00) fL Nucleated RBC % 0.0 /100WBC Nucleated RBCs # 0 K/uL Sodium 142 (136-148) mmol/L Potassium 3.7 (3.5-5.1) mmol/L Chloride 107 (98-107) mmol/L Carbon Dioxide 30.6 (21.0-32.0) mmol/L BUN 24 H (7.0-18.0) mg/dL Creatinine 0.7 L (0.8-1.3) mg/dL Est Cr Clr Drug Dosing 87.76 mL/min Estimated GFR (MDRD) > 60.0 ml/min Glucose 96 (74-106) mg/dL POC Glucose (70-99) mg/dL Calcium 8.1 L (8.5-10.1) mg/dL Magnesium 2.0 (1.8-2.4) mg/dL SARS-CoV-2 RNA (ISABEL) (NEGATIVE) 11/02/20 11/02/20 11/02/20 Range/Units 06:34 11:47 11:50 WBC (4.0-11.0) K/uL RBC (4.50-5.90) M/uL Hgb (13.0-17.0) g/dL Hct (38.0-50.0) % MCV (80.0-98.0) fL MCH (27.0-32.0) pg MCHC (31.0-37.0) g/dL RDW Std Deviation (28.0-62.0) fl RDW Coeff of Edna (11.0-15.0) % Plt Count (150-400) K/uL MPV (7.40-12.00) fL Nucleated RBC % /100WBC Nucleated RBCs # K/uL Sodium (136-148) mmol/L Potassium (3.5-5.1) mmol/L Chloride (98-107) mmol/L Carbon Dioxide (21.0-32.0) mmol/L BUN (7.0-18.0) mg/dL Creatinine (0.8-1.3) mg/dL Est Cr Clr Drug Dosing mL/min Estimated GFR (MDRD) ml/min Glucose (74-106) mg/dL POC Glucose 94 110 H (70-99) mg/dL Calcium (8.5-10.1) mg/dL Magnesium (1.8-2.4) mg/dL SARS-CoV-2 RNA (ISABEL) NEGATIVE (NEGATIVE) Result Diagrams: 11/02/20 05:38 11/02/20 05:38 Martell Results Last 24 hrs: Microbiology 10/28/20 17:24 Aerobic Blood Culture - Preliminary Blood - Venous - Lab Draw NO GROWTH AFTER 4 DAYS Anaerobic Blood Culture - Preliminary NO GROWTH AFTER 4 DAYS 10/28/20 17:15 Aerobic Blood Culture - Preliminary Blood - Venous NO GROWTH AFTER 4 DAYS Anaerobic Blood Culture - Preliminary NO GROWTH AFTER 4 DAYS Sepsis Event Note - Focused Exam Vital Signs: Vital Signs Temp Pulse Pulse Resp BP BP BP 11/02/20 12:04 36.4 C 69 18 98/59 L 11/02/20 10:13 36.2 C 18 139/73 11/02/20 09:59 73 139/73 11/02/20 03:08 35.9 C L 78 18 117/68 Pulse Ox 11/02/20 12:04 95 11/02/20 10:13 94 L 11/02/20 09:59 11/02/20 03:08 92 L - Plan Plan:: I have seen and evaluated the patient and agree with the residents note unless specified in my note
[2020-11-01] MEDS: Azithromycin 500 MG in Sodium Chloride 0.9% 250 ML IV SCH (16:32)
[2020-11-01] MEDS: cefTRIAXone 1 GM in Premix Bag 1 BAG IV SCH (17:35)
[2020-11-01] MEDS: OLANZapine 5 MG Tab PO SCH (20:57)
[2020-11-02] MEDS: Insulin Aspart 100 Units/ML 3 ML Pen SUBCUT SCH (06:44)
[2020-11-02 06:52] LABS: BLOOD UREA NITROGEN,BUN 24 mg/dL (7.0-18.0); CARBON DIOXIDE,CO2 30.6 mmol/L (21.0-32.0); CHLORIDE,CL 107 mmol/L (98-107); GLUCOSE RANDOM 96 mg/dL (74-106); POTASSIUM,K 3.7 mmol/L (3.5-5.1); SODIUM,NA 142 mmol/L (136-148)
[2020-11-02] MEDS: FLUoxetine 20 MG Cap PO SCH (09:59)
[2020-11-02] MEDS: Metoprolol Tartrate 25 MG Tab PO SCH (09:59)
[2020-11-02] MEDS: Apixaban 5 MG Tab PO SCH (09:59)
[2020-11-02 12:06] VITALS: BP 98/59; PULSE 69
--- NOTE | 2020-11-02 13:01 | PCM.DCSUM1 ---
Discharge Summary - Hospital Course Free Text/Narrative:: 85-year-old male with a history of aspiration and CHF presented from [facility] with complaints of cough and shortness of breath. Patient has severe dementia at baseline. Home medications include Lasix 40 mg twice daily. He is already hypoxic at the [facility] satting at 83%. He was started on 2 L nasal cannula but continued to have shortness of breath and worsening cough. He was brought to the ER where his temperature was 97.4, heart rate 88, respiratory rate 20, blood pressure 108/56. Patient was started on 4 L nasal cannula and was saturating at 94%. EKG showed atrial fibrillation. Patient has a history of this and was discharged in July on Eliquis 5 mg twice daily. WBC 11.7. Potassium 4.4. BUN 29. Creatinine 0.9. Lactic acid 1.6. BNP 153. Patient received azithromycin and ceftriaxone in the ER. He also got IV Lasix 60 mg. Chest x-ray showed bibasilar atelectasis versus infiltrates. Patient was admitted for acute CHF exacerbation and aspiration pneumonia. Patient received 5 days of azithromycin and ceftriaxone. Blood cultures were negative. Procalcitonin level was within normal limits. Patient has a history of dysphagia and was placed on a mechanical soft nectar thick liquids diet. Patient's oxygen requirements gradually declined and he was weaned off of oxygen. His blood pressures were soft and his metoprolol was decreased to 12.5 mg twice daily. Patient has a history of dysphagia and aspiration. He is on a mechanical soft diet but after speaking to his POA who is his daughter Suri it appears they signed a waiver at [facility] to allow him to have a regular diet as he pleases. I discussed care goals for this patient and possibly considering comfort measures. His daughter stated she would talk to [facility] first. On follow-up phone calls she stated the family needed more time to discuss and make a decision. Patient's clinical status improved. He was weaned off of oxygen and is now on room air. He received 5 days of antibiotics. He will be discharged on 5 days of Levaquin. Eliquis 5 mg twice daily. Metoprolol tartrate was decreased to 12.5 mg twice daily due to low blood pressures. He will need close follow-up with his PCP regarding management of his anticoagulation and metoprolol dosing. Diagnosis: Stroke: No - Discharge Data Discharge Date: 11/02/20 Discharge Disposition: DC/Tfer to SNF 03 Condition: Stable - Referral to Home Health Primary Care Physician: PCP None - Discharge Diagnosis/Problem(s) (1) Atrial fibrillation SNOMED Code(s): 23670992 ICD Code: I48.91 - UNSPECIFIED ATRIAL FIBRILLATION Status: Chronic (2) Acute exacerbation of congestive heart failure SNOMED Code(s): 418650340, 65912681972817 ICD Code: I50.9 - HEART FAILURE, UNSPECIFIED Status: Acute Qualifiers: Heart failure type: unspecified Qualified Code(s): I50.9 - Heart failure, unspecified (3) Dementia SNOMED Code(s): 88933227 ICD Code: F03.90 - UNSPECIFIED DEMENTIA WITHOUT BEHAVIORAL DISTURBANCE Status: Chronic Qualifiers: Dementia type: unspecified type Dementia behavioral disturbance: without behavioral disturbance Qualified Code(s): F03.90 - Unspecified dementia without behavioral disturbance (4) Pneumonia SNOMED Code(s): 541470048 ICD Code: J18.9 - PNEUMONIA, UNSPECIFIED ORGANISM Status: Acute Priority: High Qualifiers: Qualified Code(s): J18.9 - Pneumonia, unspecified organism (5) Aspiration into respiratory tract SNOMED Code(s): 317225675 ICD Code: T17.908A - UNSP FB IN RESP TRACT, PART UNSP CAUSING OTH INJURY, INIT Status: Acute - Patient Summary/Data Consults: Consultations 10/28/20 20:04 LENS COATING TECHNICIAN Evaluation and Treatment [CONS] Routine 10/29/20 13:53 Consult to Speech Language Pathology [LENS COATING TECHNICIAN Evaluation and Treatment] [CONS] Routine 11/02/20 08:30 Consult to Physical Therapy [PT Evaluation and Treatment] [CONS] Routine - Patient Instructions Diet: Mechanical Soft (with nectar thick liquids) Diet, Other: to prevent aspiration. Notify Provider of: Fever, Increased Pain, Swelling and Redness Other/Special Instructions: Shortness of breath, wheezing, chest pain, swelling in feet - please report to his PCP. Decreased Metoprolol Tartrate to 25mg every 12 hours, because his blood pressure ran low in the hospital. PCP can reassess. Patient needs 5 days of Levofloxaxin 750mg daily to finish his antibiotic course for pneumonia. Mechanical soft diet with nectar thick liquids to prevent aspiration. Patient is being restarted on his Eliquis 5mg every 12 hours. He needs this for his atrial fibrillation to prevent blood clotting. PCP can reassess. PT, OT, and speech therapy. - Discharge Plan *PRESCRIPTION DRUG MONITORING PROGRAM REVIEWED*: Not Applicable *COPY OF PRESCRIPTION DRUG MONITORING REPORT IN PATIENT FLOR: Not Applicable Prescriptions/Med Rec: Apixaban [Eliquis] 5 mg PO BID 30 Days #60 tablet Furosemide [Lasix] 40 mg PO BID 30 Days #120 tab levoFLOXacin [Levaquin] 750 mg PO DAILY 5 Days #15 tab Metoprolol Tartrate [Lopressor] 25 mg PO BID 30 Days #60 tablet Losartan Potassium 50 mg PO DAILY 30 Days #30 tab Home Medications: Home Meds Aspirin [Adult Low Dose Aspirin EC] 81 mg PO DAILY 09/29/13 [History] Multivitamin [Multivitamins] 1 each PO DAILY 09/29/13 [History] bisacodyL [Laxative] 10 mg RC DAILY PRN 09/29/13 [History] OLANZapine [ZyPREXA] 10 mg PO BEDTIME 08/23/20 [History] Potassium Chloride [Klor-Con M20] 20 meq PO BID 08/23/20 [History] Nystatin [Nystop] 100,000 units TOP QID #1 bottle 08/27/20 [Rx] Acetaminophen 500 mg PO TID 10/28/20 [History] Apixaban [Eliquis] 5 mg PO BID 30 Days #60 tablet 11/02/20 [Rx] FLUoxetine HCl [Prozac] 20 mg PO DAILY 30 Days #30 11/02/20 [Rx] Furosemide [Lasix] 40 mg PO BID 30 Days #120 tab 11/02/20 [Rx] Losartan Potassium 50 mg PO DAILY 30 Days #30 tab 11/02/20 [Rx] Metoprolol Tartrate [Lopressor] 25 mg PO BID 30 Days #60 tablet 11/02/20 [Rx] levoFLOXacin [Levaquin] 750 mg PO DAILY 5 Days #15 tab 11/02/20 [Rx] Referrals: Noe Nieves MD [Ordering Only Provider] - 11/08/20 - Discharge Summary/Plan Comment DC Time >30 min.: Yes - General Info Admission Dx/Problem (Free Text: Admission Diagnosis/Problem Admission Diagnosis/Problem CHF, Congestive heart failure Subjective Update: 85-year-old male with history of A. fib, dysphagia and strokes is admitted for aspiration pneumonia and CHF exacerbation. Anticoagulated with Eliquis. Patient is not on IV fluids. Patient is on azithromycin and ceftriaxone. Patient was given IV Lasix once yesterday and his pedal edema improved. Patient was weaned down to 1 L nasal cannula. This morning he states he feels better. Patient would like to drink cold juice or water. Patient denies chest pain, shortness of breath, dyspnea, palpitations or abdominal pain. Patient denies cough. Patient continues on a soft mechanical diet as his POA states they are still deciding about comfort care measures. - Review of Systems General: Reports: No Symptoms HEENT: Reports: No Symptoms Pulmonary: Denies: Pleuritic Chest Pain, Cough, Sputum Cardiovascular: Denies: Chest Pain, Palpitations, Edema Gastrointestinal: Reports: No Symptoms Genitourinary: Reports: No Symptoms Musculoskeletal: Reports: No Symptoms - Patient Data Vitals - Most Recent: Last Vital Signs Temp 97.6 F 11/02/20 12:04 Pulse 69 11/02/20 12:04 Resp 18 11/02/20 12:04 BP 98/59 L 11/02/20 12:04 Pulse Ox 95 11/02/20 12:04 Weight - Most Recent: 296 lb 5 oz I&O - Last 24 hours: Intake & Output 11/01/20 11/02/20 11/02/20 22:59 06:59 14:59 Intake Total 880 700 Output Total 2437 Balance -1557 700 Lab Results - Last 24 hrs: Laboratory Results - last 24 hr 11/02/20 11/02/20 11/02/20 Range/Units 05:38 05:38 05:38 WBC 6.78 (4.0-11.0) K/uL RBC 4.61 (4.50-5.90) M/uL Hgb 13.2 (13.0-17.0) g/dL Hct 41.0 (38.0-50.0) % MCV 88.9 (80.0-98.0) fL MCH 28.6 (27.0-32.0) pg MCHC 32.2 (31.0-37.0) g/dL RDW Std Deviation 43.5 (28.0-62.0) fl RDW Coeff of Edna 13 (11.0-15.0) % Plt Count 177 (150-400) K/uL MPV 11.50 (7.40-12.00) fL Nucleated RBC % 0.0 /100WBC Nucleated RBCs # 0 K/uL Sodium 142 (136-148) mmol/L Potassium 3.7 (3.5-5.1) mmol/L Chloride 107 (98-107) mmol/L Carbon Dioxide 30.6 (21.0-32.0) mmol/L BUN 24 H (7.0-18.0) mg/dL Creatinine 0.7 L (0.8-1.3) mg/dL Est Cr Clr Drug Dosing 87.76 mL/min Estimated GFR (MDRD) > 60.0 ml/min Glucose 96 (74-106) mg/dL POC Glucose (70-99) mg/dL Calcium 8.1 L (8.5-10.1) mg/dL Magnesium 2.0 (1.8-2.4) mg/dL 11/02/20 11/02/20 Range/Units 06:34 11:47 WBC (4.0-11.0) K/uL RBC (4.50-5.90) M/uL Hgb (13.0-17.0) g/dL Hct (38.0-50.0) % MCV (80.0-98.0) fL MCH (27.0-32.0) pg MCHC (31.0-37.0) g/dL RDW Std Deviation (28.0-62.0) fl RDW Coeff of Edna (11.0-15.0) % Plt Count (150-400) K/uL MPV (7.40-12.00) fL Nucleated RBC % /100WBC Nucleated RBCs # K/uL Sodium (136-148) mmol/L Potassium (3.5-5.1) mmol/L Chloride (98-107) mmol/L Carbon Dioxide (21.0-32.0) mmol/L BUN (7.0-18.0) mg/dL Creatinine (0.8-1.3) mg/dL Est Cr Clr Drug Dosing mL/min Estimated GFR (MDRD) ml/min Glucose (74-106) mg/dL POC Glucose 94 110 H (70-99) mg/dL Calcium (8.5-10.1) mg/dL Magnesium (1.8-2.4) mg/dL VERONIKA Results - Last 24 hrs: Microbiology 10/28/20 17:24 Aerobic Blood Culture - Preliminary Blood - Venous - Lab Draw NO GROWTH AFTER 4 DAYS Anaerobic Blood Culture - Preliminary NO GROWTH AFTER 4 DAYS 10/28/20 17:15 Aerobic Blood Culture - Preliminary Blood - Venous NO GROWTH AFTER 4 DAYS Anaerobic Blood Culture - Preliminary NO GROWTH AFTER 4 DAYS Med Orders - Current: Current Medications Albuterol/Ipratropium (Albuterol/Ipratropium 3.0-0.5 Mg/3 Ml Neb Soln) 3 ml NEB Q4HRRT PRN PRN Reason: Shortness Of Breath/wheezing Apixaban (Apixaban 5 Mg Tab) 5 mg PO BID [facility] Last Admin: 11/02/20 09:59 Dose: 5 mg Documented by: Benzonatate (Benzonatate 100 Mg Cap) 200 mg PO Q8H PRN PRN Reason: Cough Dextrose/Water (50% Dextrose In Water 50 Ml Syringe) 50 ml IVPUSH ASDIRECTED PRN PRN Reason: Hypoglycemia Fluoxetine HCl (Fluoxetine 20 Mg Cap) 20 mg PO DAILY [facility] Last Admin: 11/02/20 09:59 Dose: 20 mg Documented by: Furosemide (Furosemide 40 Mg/4 Ml Vial) 20 mg IVPUSH NOW ONE Stop: 11/02/20 12:38 Glucagon (Glucagon,Human Recombinant 1 Mg Vial) 1 mg IM ASDIRECTED PRN PRN Reason: Hypoglycemia Ceftriaxone Sodium/Dextrose 1 (gm/ Premix) 50 mls @ 100 mls/hr IV Q24H [facility] Last Admin: 11/01/20 17:35 Dose: 100 mls/hr Documented by: Azithromycin 500 mg/ Sodium (Chloride) 250 mls @ 250 mls/hr IV Q24H [facility] Last Admin: 11/01/20 16:32 Dose: 250 mls/hr Documented by: Insulin Aspart (Insulin Aspart 100 Units/Ml 3 Ml Pen) 0 unit SUBCUT TIDAC [facility]; Protocol Last Admin: 11/02/20 06:44 Dose: Not Given Documented by: Metoprolol Tartrate (Metoprolol Tartrate 25 Mg Tab) 12.5 mg PO BID [facility] Last Admin: 11/02/20 09:59 Dose: 12.5 mg Documented by: Nystatin (Nystatin Topical Powder 15 Gm Bottle) 0 gm TOP QID PRN PRN Reason: Itching Last Admin: 10/29/20 11:13 Dose: 1 applic Documented by: Olanzapine (Olanzapine 5 Mg Tab) 10 mg PO BEDTIME JACKIE Last Admin: 11/01/20 20:57 Dose: 10 mg Documented by: Polyethylene Glycol (Polyethylene Glycol 3350 Powder 17 Gm Packet) 17 gm PO DAILY PRN PRN Reason: Constipation Sodium Chloride (Sodium Chloride 0.9% 10 Ml Syringe) 10 ml FLUSH ASDIRECTED PRN PRN Reason: Keep Vein Open Last Admin: 10/28/20 15:55 Dose: 10 ml Documented by: Sodium Chloride (Sodium Chloride 0.9% 2.5 Ml Syringe) 2.5 ml FLUSH ASDIRECTED PRN PRN Reason: Keep Vein Open Last Admin: 10/28/20 15:55 Dose: 2.5 ml Documented by: Discontinued Medications Benzonatate (Benzonatate 100 Mg Cap) 200 mg PO ONETIME ONE Stop: 10/28/20 17:38 Last Admin: 10/28/20 18:00 Dose: 200 mg Documented by: Furosemide (Furosemide 20 Mg/2 Ml Vial) 60 mg IVPUSH ONETIME ONE Stop: 10/28/20 15:14 Last Admin: 10/28/20 15:50 Dose: 60 mg Documented by: Furosemide (Furosemide 20 Mg/2 Ml Vial) 20 mg IVPUSH ONETIME ONE Stop: 10/31/20 11:42 Last Admin: 10/31/20 12:01 Dose: 20 mg Documented by: Furosemide (Furosemide 20 Mg/2 Ml Vial) 20 mg IVPUSH NOW ONE Stop: 11/01/20 12:31 Last Admin: 11/01/20 13:41 Dose: 20 mg Documented by: Azithromycin 500 mg/ Sodium (Chloride) 250 mls @ 250 mls/hr IV ONETIME JACKIE Ceftriaxone Sodium/Dextrose 1 (gm/ Premix) 50 mls @ 100 mls/hr IV ONETIME ONE Stop: 10/28/20 17:32 Last Admin: 10/28/20 17:57 Dose: 100 mls/hr Documented by: Azithromycin 500 mg/ Sodium (Chloride) 250 mls @ 250 mls/hr IV ONETIME ONE Stop: 10/28/20 17:59 Last Admin: 10/28/20 19:39 Dose: 250 mls/hr Documented by: Iopamidol (Iopamidol 755 Mg/Ml 100 Ml Bottle) 100 ml IVPUSH ONETIME ONE Stop: 10/29/20 00:37 Last Admin: 10/29/20 00:51 Dose: 100 ml Documented by: Losartan Potassium (Losartan 50 Mg Tab) 50 mg PO DAILY [facility] Last Admin: 10/29/20 10:10 Dose: Not Given Documented by: Metoprolol Tartrate (Metoprolol Tartrate 25 Mg Tab) 25 mg PO BID [facility] Last Admin: 11/01/20 09:38 Dose: 25 mg Documented by: Metoprolol Tartrate (Metoprolol Tartrate 5 Mg/5 Ml Sdv) 5 mg IVPUSH ONETIME ONE Stop: 10/28/20 20:36 Last Admin: 10/28/20 21:07 Dose: 5 mg Documented by: Potassium Chloride (Potassium Chloride 20 Meq Tab.Er) 20 meq PO BIDMEALS [facility] Last Admin: 10/28/20 21:19 Dose: Not Given Documented by: - Exam General: Reports: Alert, Cooperative, No Acute Distress. Denies: Oriented HEENT: Reports: Pupils Equal Neck: Reports: Supple, No JVD Lungs: Reports: Clear to Auscultation, Normal Respiratory Effort. Denies: Crackles Cardiovascular: Reports: Regular Rate, No Murmurs, Irregular Rhythm GI/Abdominal Exam: Normal Bowel Sounds, Soft, Non-Tender. No: Guarding, Rigid, Rebound Back Exam: Reports: Normal Inspection Extremities: No Pedal Edema. No: Svitlana's Sign, Leg Pain Neurological: Reports: No New Focal Deficit
[2020-11-02] MEDS ORDERED: Furosemide 40 MG/4 ML VIAL IVPUSH ONE (13:06)
== END 2020-11-02 13:26 | DRG 177 ==
LOC: MW.ED 14:12 → MW.MS 17:00 → OBSVTOIN 10-29 13:52 → MW.MS 10-29 14:01
PROVIDERS: ADMIT Internal Medicine; ATTEND Internal Medicine
DX: J18.9 Pneumonia, unspecified organism (principal); J69.0 Pneumonitis due to inhalation of food and vomit; J96.01 Acute respiratory failure with hypoxia; I11.0 Hypertensive heart disease with heart failure; I48.91 Unspecified atrial fibrillation; I50.9 Heart failure, unspecified; F03.90 Unspecified dementia, unspecified severity, without behavioral disturbance, psychotic disturbance, mood disturbance, and anxiety; E11.9 Type 2 diabetes mellitus without complications; Z66 Do not resuscitate; H54.7 Unspecified visual loss; R32 Unspecified urinary incontinence; M19.90 Unspecified osteoarthritis, unspecified site; F32.9 Major depressive disorder, single episode, unspecified; Z96.641 Presence of right artificial hip joint; Z86.19 Personal history of other infectious and parasitic diseases; Z79.01 Long term (current) use of anticoagulants; Z86.73 Personal history of transient ischemic attack (TIA), and cerebral infarction without residual deficits; Z79.82 Long term (current) use of aspirin; Z90.89 Acquired absence of other organs; Z79.899 Other long term (current) drug therapy; Z20.822 Contact with and (suspected) exposure to COVID-19
CPT/HCPCS: 36415 ×2; 36600; 71045; 71275; 80053 ×2; 82803; 82947 ×2; 83605; 83735 ×2; 83880; 84100; 84145; 84484; 85025 ×2; 85379; 87040 ×2; 93005; 96365; 96375 ×2; 99285; A9270 ×2; G0378 ×3; J0456; J0696; J1940; J3490; J7050; Q9967; 80048; 85027; 93010; 97161-GP; 99284; J1815-GY; U0002

== ENCOUNTER 2021-02-17 18:37 | Inpatient (IN) | payer MEDICARE, BC, MEDICAID ==
[~2021-02-17 18:37] MED LIST: EPINEPHrine 1:10,000 1 MG/10 ML Syringe IV ONE
[2021-02-17] MEDS ORDERED: Sodium Chloride 0.9% 10 ML Syringe FLUSH PRN (18:41)
[2021-02-17] MEDS ORDERED: Sodium Chloride 0.9% 2.5 ML Syringe FLUSH PRN (18:41)
--- NOTE | 2021-02-17 18:53 | PCM.SN.2 ---
- Free Text/Narrative Note: 1849: I did contact the patient's power of admitted attorneys, Mel about the patient's CODE STATUS. We did have a CODE STATUS that is incomplete that says "Code III". Mel states she has had several conversations with her father about this and at this time would like him a full code, "Code I". She would want him intubated and CPR initiated if needed. We will call and keep her updated as events progress.
[2021-02-17] MEDS ORDERED: Sodium Chloride 0.9% 1,000 ML IV ONE (18:54)
[2021-02-17] MEDS ORDERED: fentaNYL/Normal Saline 2,500 MCG in Premix Bag 1 BAG IV PRN (19:27)
[2021-02-17] MEDS ORDERED: propofoL 100 ML IV SCH ×2 (19:30→20:30)
[2021-02-17 19:40] LABS: BLOOD UREA NITROGEN,BUN 20 mg/dL (7.0-18.0); CARBON DIOXIDE,CO2 26.1 mmol/L (21.0-32.0); CHLORIDE,CL 105 mmol/L (98-107); GLUCOSE RANDOM 119 mg/dL (74-106); SODIUM,NA 140 mmol/L (136-148)
--- NOTE | 2021-02-17 19:45 | CR ---
HISTORY: Unresponsive. Post intubation. TECHNIQUE: Portable frontal view the chest. COMPARISON: None. FINDINGS: Tip of the endotracheal tube is 3.3 cm above the spencer. NG/OG tube extends below the diaphragm outside the field of view. Low lung volumes with crowding of the bronchovascular structures. No focal airspace consolidation. No moderate or large pleural effusion. No pneumothorax. Cardiomediastinal silhouette size is unremarkable for technique. Degenerative changes of the spine. IMPRESSION: 1. Endotracheal tube tip 3.3 cm above the spencer. 2. Low lung volumes. Dictated by Booker Burkett MD @ 02/17/2021 7:43:14 PM (Electronically Signed)
--- NOTE | 2021-02-17 19:59 | CT ---
INDICATION: Patient unresponsive. COMPARISON: None available. TECHNIQUE: CT examination of the head was performed with 5 mm thick axial and 2 mm thick coronal and sagittal sections without intravenous contrast. Images were obtained from the vertex of the skull through the skull base, and I examined the images with the brain and bone windows. Please note that all CT scans at this facility use dose modulation, iterative reconstruction, and/or weight-based dosing when appropriate to reduce radiation dose to as low as reasonably achievable. FINDINGS: : The brain is normal in appearance for the patient`s age on today`s study, with no sign of mass lesion, mass effect, hemorrhage, or edema. There is mild dilatation of the ventricles and sulci representing age-appropriate atrophy. There is mild periventricular and subcortical white matter hypodensity representing age-appropriate small vessel ischemia. There is mild cerebellar atrophy. The visualized portions of the orbits are normal in appearance. There are minimal bilateral maxillary air-fluid levels from minimal chronic sinusitis. There is moderate left and mild right maxillary sinus mucosal thickening from chronic sinusitis. There is moderate patchy ethmoid opacification from chronic sinusitis. A small air-fluid level is seen in the left sphenoid sinus from mild acute sinusitis. The frontal ethmoidal recesses are opacified from mild chronic frontal sinusitis. The mastoids are clear. The osseous structures are normal in their appearance with no sign of abnormality in the skull base or calvarium. IMPRESSION: No sign of acute injury to the brain. Mild, age-appropriate atrophy and mild age-appropriate small vessel ischemic changes. There is also mild cerebellar atrophy. Mild acute on chronic bilateral maxillary sinusitis. Mild acute left sphenoid sinusitis. Mild chronic bilateral frontal and ethmoid sinusitis. Please note that all CT scans at this facility use dose modulation, iterative reconstruction, and/or weight-based dosing when appropriate to reduce radiation dose to as low as reasonably achievable. Dictated by Chris Nolan MD @ 02/17/2021 7:59:13 PM (Electronically Signed)
[2021-02-17] MEDS ORDERED: propofoL 100 ML ONE (20:35)
[2021-02-17] MEDS ORDERED: cefTRIAXone 1 GM in Premix Bag 1 BAG IV ONE (21:08)
[2021-02-17] MEDS ORDERED: Dexamethasone 10 MG/ML SDV IVPUSH ONE (21:08)
--- NOTE | 2021-02-17 22:01 | EDM.PDOC ---
ED HPI GENERAL MEDICAL PROBLEM - General Chief Complaint: Respiratory Problem Stated Complaint: DIFFICULTY BREATHING, COVID Time Seen by Provider: 02/17/21 19:25 - History of Present Illness INITIAL COMMENTS - FREE TEXT/NARRATIVE: HISTORY AND PHYSICAL: History of present illness: This is an 85-year-old gentleman with a history significant for CHF, hypertension, atrial fibrillation on Eliquis, diabetes, dementia, who has a rec ent diagnosis of Covid yesterday at [facility], who presents to the ER today by EMS secondary to concerns for respiratory failure, altered mentation. Upon arrival to the ED the patient was noted to be unresponsive with a GCS of 3. Patient has been placed on 100% nonrebreather and had a pulse ox of 91 to 95% on room air upon initial evaluation however per EMSs report, patient's pulse ox was 83% upon their arrival to the [facility] and appeared to be in severe respiratory distress. During initial evaluation in the ED, it was felt that the patient would need to be intubated for airway protection given his severe hypoxia, his altered mentation and a GCS of 3. Family was contacted and at that time, and patient's daughter, Rupali from [place] who is his power of finance attorney had requested the patient be a full code. Given that information, the patient was intubated in the ED for airway protection. (Please see intubation note) Further history is unobtainable from the patient secondary to his unresponsive state and intubation. Review of systems: As per history of present illness and below otherwise all systems reviewed and negative. Past medical history: As per history of present illness and as reviewed below otherwise noncontributory. Surgical history: As per history of present illness and as reviewed below otherwise noncontributory. Social history: No reported history of drug abuse. Family history: As per history of present illness and as reviewed below otherwise noncontributory. Physical exam: This patient was seen and evaluated during the 2019 SARS-CoV-2 novel coronavirus pandemic period. Community viral transmission is ongoing at time of this encounter and the emergency department is operating under pandemic response procedures. GENERAL: 85-year-old male on the [facility] intubated, unresponsive, sedated HEENT: Moist mucous membranes HEAD: Normocephalic, atraumatic. EYES: Pupils are equally round and reactive to light. Extraocular motions intact. Pupils are 4 mm to 2 mm. Eyes: Right eye exhibits no discharge. Left eye exhibits no discharge. No scleral icterus ENT: ET tube in place. NECK: Full range of motion without pain. No bony tenderness. No adenopathy. No tracheal deviation present. LUNGS: No spontaneous respirations. Patient does have bilateral breath sounds with ET tube in place. HEART: Irregularly irregular rhythm.Patient with strong palpable pulses. Atrial fibrillation on monitor Abd: Soft, nondistended, no rebound/guarding, no psoas or obturator signs, no tenderness at Mcberney's point, no French's sign. Pt does not present with an exam that would be consistent with an acute surgical abdomen at this time. Nontender to palpation EXTREMITIES: Extremities warm to touch BACK: Unremarkable NEUROLOGICAL: GCS 3 post intubation PSYCH: Patient unresponsive SKIN: No diaphoresis. [place], warm and dry. Diagnostics: [] Therapeutics: [] Assessment and plan: This is a 85-year-old gentleman who presents ER today secondary to evaluation of respiratory failure and unresponsiveness after being diagnosed with coronavirus yesterday. Upon initial arrival to the ER the patient was noted to be hypotensive, hypoxic, and respiratory distress with a GCS of 3. Patient was intubated in the ED after consultation with the patient's power of finance attorney for airway protection. Patient was intubated utilizing succinylcholine without sedative secondary to the patient's unresponsive state and a GCS of 3. Patient was intubated with a 7.5 endotracheal tube after 1 attempt without complication. Intubation was done by Dr. Dong Zhong. Cords are visualized utilizing glide scope. Intubation was confirmed by end-tidal CO2 monitoring as well as equal breath sounds bilaterally. Upon initial evaluation of the patient, the patient was noted to be hypotensive and was started on a norepinephrine drip. After his intubation, the patient was noted to have tachycardia and increased blood pressure. Patient's norepinephrine drip was discontinued and patient started on a fentanyl and propofol drip. Patient received a chest x-ray which did not reveal any significant abnormality other than poor respiratory effort with increased interstitial markings bilaterally. Patient has good endotracheal tube placement and good NG tube placement as well. While attempting to transfer the patient to [facility], the patient had an episode where he was a CODE BLUE. Patient came hypotensive with a blood pressure of 52/30. The fentanyl propofol drip were both discontinued however shortly after the patient became pulseless and extremely bradycardic. ACLS was initiated. Patient received 1 course of epinephrine as well as CPR. Shortly after receiving the epinephrine, patient had palpable pulses and cardiac activity was documented using ultrasound. Shortly after receiving the epinephrine, the patient's blood pressure was up to 154/92 and remained in that range for short amount of time. I was notified once again by our nurse that his blood pressure had dropped down to his precode level. Patient was restarted again on his norepinephrine drip and has maintained his blood pressure since. Patient's family arrived and are at bedside. I had a long discussion with the patient's daughters including his power of finance attorney over the phone. I have discussed with him the options of transferring patient to [facility] versus [facility] here at [facility]. The family at this time are wishing that the patient be made a DNR and comfort care only. I have discussed with him that if he is to stay at [facility] that he could not be on a ventilator. The family requested that we remove the ventilator and allow him to rest comfortably and to see how he does. Prior to removing the vent, the patient was on norepinephrine drip with a blood pressure of 146/88, patient's pulse ox was 98% and he had a heart rate of 110. Per the family's request, we waited until other family members arrived to be at bedside prior to extubation. Once his family was at bedside and after reaffirming their wishes, the patient was extubated. The family was asked to step outside during this time. Suction was prepared, 100% nonrebreather mask was prepared. Upon removal of the endotracheal tube, the patient had adequate spontaneous respirations. 100% nonrebreather, the patient's pulse ox maintained at 98%. Patient heart rate maintained between 100 120 bpm. Patient blood pressure has been maintaining at roughly 130/80. Patient's eyes were open and he was responding to family. He was nonverbal but clearly tracking. Patient was maintained on his norepinephrine drip. Patient's labs reviewed. Patient's labs are all within normal limits. Patient's CBC and CBC were normal. Patient lactic acid level was negative. Patient's troponin is negative. Patient was given 1 L of NSS here in the ED. Patient given Decadron 10 mg IV for treatment of his Covid. Patient has been given a dose of IV Rocephin and Zithromax IV to cover for possible pneumonia. Critical Care: The high probability of sudden, clinically significant deterioration in the patient's condition required the highest level of my preparedness to intervene urgently. The services I provided to this patient were to treat and/or prevent clinically significant deterioration. Services included the following: chart data review, reviewing nursing notes and/or old charts, documentation time, strategic consultant collaboration regarding findings and treatment options, medication orders and management, direct patient care, vital sign assessments and ordering, interpreting and reviewing diagnostic studies/lab tests. Aggregate critical care time includes only time during which I was engaged inwork directly related to the patient's care, as described above, whether at the bedside or elsewhere in the Emergency Department. It did not include time spent performing other reported procedures or the services of residents, students, nurses or physician assistants. Critical Care Time: 65 minutes CODE STATUS: After discussion with patient's daughters, their wishes are that the patient is a DNR/DNI. They are requesting comfort care measures. They do not want CPR or ACLS instituted. They do wish for the Levophed to continue for the time being. They do wish IV fluids. They do wish IV antibiotics if indicated. They do wish for supplemental oxygen. They have wished for no endotracheal intubation. They have wished for no CPR. They wish for no cardiac pressor medications to support his blood pressure if his blood pressure should drop other than the Levophed that he is currently on. Case has been discussed with Dr. Franco who is agreed to accept patient. Definitive disposition and diagnosis as appropriate pending reevaluation and review of above. - Related Data Allergies Allergy/AdvReac Type Severity Reaction Status Date / Time No Known Allergies Allergy Verified 02/17/21 19:48 Home Meds: Home Meds Aspirin [Adult Low Dose Aspirin EC] 81 mg PO DAILY 09/29/13 [History] Multivitamin [Multivitamins] 1 each PO DAILY 09/29/13 [History] bisacodyL [Laxative] 10 mg RC DAILY PRN 09/29/13 [History] OLANZapine [ZyPREXA] 10 mg PO BEDTIME 08/23/20 [History] Potassium Chloride [Klor-Con M20] 20 meq PO BID 08/23/20 [History] Nystatin [Nystop] 100,000 units TOP QID #1 bottle 08/27/20 [Rx] Acetaminophen 500 mg PO TID 10/28/20 [History] Apixaban [Eliquis] 5 mg PO BID 30 Days #60 tablet 11/02/20 [Rx] FLUoxetine HCl [Prozac] 20 mg PO DAILY 30 Days #30 11/02/20 [Rx] Furosemide [Lasix] 40 mg PO BID 30 Days #120 tab 11/02/20 [Rx] Losartan Potassium 50 mg PO DAILY 30 Days #30 tab 11/02/20 [Rx] Metoprolol Tartrate [Lopressor] 25 mg PO BID 30 Days #60 tablet 11/02/20 [Rx] levoFLOXacin [Levaquin] 750 mg PO DAILY 5 Days #15 tab 11/02/20 [Rx] Past Medical History HEENT History: Reports: Impaired Vision Cardiovascular History: Reports: Afib, Heart Failure, Hypertension Respiratory History: Reports: COPD Genitourinary History: Reports: Other (See Below) Other Genitourinary History: incont urine Musculoskeletal History: Reports: Arthritis Other Musculoskeletal History: fx hip as teenager Neurological History: Reports: CVA Psychiatric History: Reports: Dementia, Depression Endocrine/Metabolic History: Reports: Diabetes, Type II Dermatologic History: Reports: Cellulitis, Venous Stasis Dermatitis - Infectious Disease History Infectious Disease History: Reports: Chicken Pox, Measles, Mumps, Novel Coronavirus - Past Surgical History HEENT Surgical History: Reports: Tonsillectomy Musculoskeletal Surgical History: Reports: Hip Replacement Other Musculoskeletal Surgeries/Procedures:: right hip replaced. Social & Family History - Family History Family Medical History: No Pertinent Family History Cardiac: Reports: RI Neurological: Reports: CVA - Tobacco Use Tobacco Use Status *Q: Never Tobacco User - Caffeine Use Caffeine Use: Reports: Coffee - Recreational Drug Use Recreational Drug Use: No ED ROS GENERAL - Review of Systems Review Of Systems: See Below ED EXAM, GENERAL - Physical Exam Exam: See Below #1 Interpretation EKG Date: 02/17/21 Time: 18:45 EKG Interpretation Comments: EKG: As interpreted by ER physician: [place]: Nonspecific ST-T wave abnormalities Normal axis No evidence of ST elevation RI Atrial fibrillation heart rate of 98 Course - Vital Signs Last Recorded V/S: Last Vital Signs Temp 100.3 F 02/17/21 19:32 Pulse 91 02/17/21 19:32 Resp 20 02/17/21 19:32 BP 81/48 L 02/17/21 19:32 Pulse Ox 97 02/17/21 19:32 - Orders/Labs/Meds Orders: Active Orders 24 hr Category Date Time Status Patient Status [ADT] Routine ADT 02/17/21 21:18 Active Cardiac Monitoring [RC] . DIRECTED Care 02/17/21 18:41 Active EKG Documentation Completion [RC] STAT Care 02/17/21 18:41 Active Insert Urinary Catheter [OM.PC] Q24H Care 02/17/21 18:45 Ordered RASS Sedation Scale [RC] ASDIRECTED Care 02/17/21 19:26 Active RASS Sedation Scale [RC] ASDIRECTED Care 02/17/21 20:18 Active Urinary Catheter Assessment [RC] ASDIRECTED Care 02/17/21 18:42 Active BLOOD GAS ARTERIAL [BG] Stat Lab 02/17/21 19:29 Ordered CORONAVIRUS COVID-19 ISABEL [MOLEC] Stat Lab 02/17/21 18:41 Ordered CULTURE BLOOD [BC] Stat Lab 02/17/21 18:53 Received CULTURE BLOOD [BC] Stat Lab 02/17/21 20:07 Received CULTURE URINE [MREF] Stat Lab 02/17/21 20:18 Received INFLUENZA A+B AG SCREEN [RM] Stat Lab 02/17/21 19:28 Ordered PROCALCITONIN [REF] Stat Lab 02/17/21 18:53 Received Azithromycin [Zithromax] 500 mg Med 02/17/21 21:15 Active Sodium Chloride 0.9% [Normal Saline AdvBag] 250 ml IV ONETIME Norepinephrine Bit/0.9 % NaCl [Norepinephr-0.9% NaCl 4 Med 02/17/21 19:00 Active mg/250] 4 mg in 250 ml IV TITRATE Sodium Chloride 0.9% [Saline Flush] Med 02/17/21 18:41 Active 10 ml FLUSH ASDIRECTED PRN Sodium Chloride 0.9% [Saline Flush] Med 02/17/21 18:41 Active 2.5 ml FLUSH ASDIRECTED PRN cefTRIAXone [Rocephin in Dextrose,Iso-Osm 1 GM/50 ML] 1 Med 02/17/21 21:08 Active gm Premix Bag 1 bag IV ONETIME fentaNYL/Normal Saline [fentaNYL 2500 MCG in NS 250 ML Med 02/17/21 19:27 Active (10 MCG/ML)] 2,500 mcg Premix Bag 1 bag IV TITRATE propofoL [Diprivan 100 ML] 100 ml Med 02/17/21 20:30 Active IV TITRATE Blood Culture x2 Reflex Set [OM.PC] Stat Ot 02/17/21 18:43 Ordered Desired Level of Sedation (RASS) [AST] Click to Edit Oth 02/17/21 19:26 Ordered Desired Level of Sedation (RASS) [AST] Click to Edit Ot 02/17/21 20:18 Ordered Isolation [COMM] Routine Oth 02/17/21 19:28 Active Saline Lock Insert [OM.PC] Stat Ot 02/17/21 18:41 Ordered Medication Orders Norepinephrine Bitartrate (Norepinephr-0.9% Nacl 4 Mg/250) 4 mg in 250 mls @ 7.5 mls/hr IV TITRATE JACKIE; Protocol Last Admin: 02/17/21 21:19 Dose: 2 mcg/min, 7.5 mls/hr Documented by: SEASVETA Fentanyl Citrate 2,500 mcg/ (Premix) 250 mls @ 2.5 mls/hr IV TITRATE PRN; Protocol PRN Reason: sedation Last Admin: 02/17/21 21:20 Dose: 25 mcg/hr, 2.5 mls/hr Documented by: SEABORIS Propofol (Diprivan 100 Ml) 100 mls @ 3.408 mls/hr IV TITRATE JACKIE; Protocol Last Admin: 02/17/21 21:19 Dose: 5 mcg/kg/min, 3.408 mls/hr Documented by: SEASVETA Ceftriaxone Sodium/Dextrose 1 (gm/ Premix) 50 mls @ 100 mls/hr IV ONETIME ONE Stop: 02/17/21 21:37 Last Admin: 02/17/21 21:18 Dose: 100 mls/hr Documented by: SEAIC Azithromycin 500 mg/ Sodium (Chloride) 250 mls @ 250 mls/hr IV ONETIME JACKIE Sodium Chloride (Sodium Chloride 0.9% 10 Ml Syringe) 10 ml FLUSH ASDIRECTED PRN PRN Reason: Keep Vein Open Last Admin: 02/17/21 21:20 Dose: 10 ml Documented by: SEAGMIC Sodium Chloride (Sodium Chloride 0.9% 2.5 Ml Syringe) 2.5 ml FLUSH ASDIRECTED PRN PRN Reason: Keep Vein Open Last Admin: 02/17/21 21:21 Dose: 2.5 ml Documented by: SADIA Labs: Laboratory Tests 02/17/21 02/17/21 02/17/21 Range/Units 18:53 18:53 18:53 WBC 5.96 (4.0-11.0) K/uL RBC 4.69 (4.50-5.90) M/uL Hgb 14.0 (13.0-17.0) g/dL Hct 42.8 (38.0-50.0) % MCV 91.3 (80.0-98.0) fL MCH 29.9 (27.0-32.0) pg MCHC 32.7 (31.0-37.0) g/dL RDW Std Deviation 48.3 (28.0-62.0) fl RDW Coeff of Edna 15 (11.0-15.0) % Plt Count 138 L (150-400) K/uL MPV 12.00 (7.40-12.00) fL Neut % (Auto) 66.6 (48.0-80.0) % Lymph % (Auto) 19.6 (16.0-40.0) % [place] % (Auto) 13.3 (0.0-15.0) % Eos % (Auto) 0.3 (0.0-7.0) % Baso % (Auto) 0.2 (0.0-1.5) % Neut # (Auto) 4.0 (1.4-5.7) K/uL Lymph # (Auto) 1.2 (0.6-2.4) K/uL [place] # (Auto) 0.8 (0.0-0.8) K/uL Eos # (Auto) 0.0 (0.0-0.7) K/uL Baso # (Auto) 0.0 (0.0-0.1) K/uL Nucleated RBC % 0.0 /100WBC Nucleated RBCs # 0 K/uL INR 1.28 APTT 35.3 H (18.6-31.3) SEC Sodium 140 (136-148) mmol/L Potassium 4.0 (3.5-5.1) mmol/L Chloride 105 (98-107) mmol/L Carbon Dioxide 26.1 (21.0-32.0) mmol/L BUN 20 H (7.0-18.0) mg/dL Creatinine 0.9 (0.8-1.3) mg/dL Est Cr Clr Drug Dosing TNP Estimated GFR (MDRD) > 60.0 ml/min Glucose 119 H (74-106) mg/dL Lactic Acid (0.4-2.0) mmol/L Calcium 7.9 L (8.5-10.1) mg/dL Magnesium 2.0 (1.8-2.4) mg/dL Total Bilirubin 0.6 (0.2-1.0) mg/dL AST 19 (15-37) IU/L ALT 12 L (14-63) IU/L Alkaline Phosphatase 59 (46-116) U/L Troponin I < 0.050 (0.000-0.056) ng/mL Total Protein 6.8 (6.4-8.2) g/dL Albumin 2.5 L (3.4-5.0) g/dL Globulin 4.3 H (2.6-4.0) g/dL Albumin/Globulin Ratio 0.6 L (0.9-1.6) Urine Color Urine Appearance Urine pH (5.0-8.0) Ur Specific [place] (1.001-1.035) Urine Protein (NEGATIVE) mg/dL Urine Glucose (UA) (NEGATIVE) mg/dL Urine Ketones (NEGATIVE) mg/dL Urine Occult Blood (NEGATIVE) Urine Nitrite (NEGATIVE) Urine Bilirubin (NEGATIVE) Urine Urobilinogen (<2.0) EU/dL Ur Leukocyte Esterase (NEGATIVE) U Hyaline Cast (Auto) (0-2/LPF) Urine RBC (0-2/HPF) Urine WBC (0-5/HPF) Ur Epithelial Cells (NONE-FEW) Urine Bacteria (NEGATIVE) Urine Mucus (NONE-MOD) 02/17/21 02/17/21 Range/Units 18:53 20:18 WBC (4.0-11.0) K/uL RBC (4.50-5.90) M/uL Hgb (13.0-17.0) g/dL Hct (38.0-50.0) % MCV (80.0-98.0) fL MCH (27.0-32.0) pg MCHC (31.0-37.0) g/dL RDW Std Deviation (28.0-62.0) fl RDW Coeff of [place]na (11.0-15.0) % Plt Count (150-400) K/uL MPV (7.40-12.00) fL Neut % (Auto) (48.0-80.0) % Lymph % (Auto) (16.0-40.0) % [place] % (Auto) (0.0-15.0) % Eos % (Auto) (0.0-7.0) % Baso % (Auto) (0.0-1.5) % Neut # (Auto) (1.4-5.7) K/uL Lymph # (Auto) (0.6-2.4) K/uL [place] # (Auto) (0.0-0.8) K/uL Eos # (Auto) (0.0-0.7) K/uL Baso # (Auto) (0.0-0.1) K/uL Nucleated RBC % /100WBC Nucleated RBCs # K/uL INR APTT (18.6-31.3) SEC Sodium (136-148) mmol/L Potassium (3.5-5.1) mmol/L Chloride (98-107) mmol/L Carbon Dioxide (21.0-32.0) mmol/L BUN (7.0-18.0) mg/dL Creatinine (0.8-1.3) mg/dL Est Cr Clr Drug Dosing Estimated GFR (MDRD) ml/min Glucose (74-106) mg/dL Lactic Acid 1.4 (0.4-2.0) mmol/L Calcium (8.5-10.1) mg/dL Magnesium (1.8-2.4) mg/dL Total Bilirubin (0.2-1.0) mg/dL AST (15-37) IU/L ALT (14-63) IU/L Alkaline Phosphatase (46-116) U/L Troponin I (0.000-0.056) ng/mL Total Protein (6.4-8.2) g/dL Albumin (3.4-5.0) g/dL Globulin (2.6-4.0) g/dL Albumin/Globulin Ratio (0.9-1.6) Urine Color YELLOW Urine Appearance SLT CLOUDY Urine pH 5.0 (5.0-8.0) Ur Specific [place] >= 1.030 (1.001-1.035) Urine Protein TRACE H (NEGATIVE) mg/dL Urine Glucose (UA) NEGATIVE (NEGATIVE) mg/dL Urine Ketones TRACE H (NEGATIVE) mg/dL Urine Occult Blood TRACE-INTACT H (NEGATIVE) Urine Nitrite NEGATIVE (NEGATIVE) Urine Bilirubin NEGATIVE (NEGATIVE) Urine Urobilinogen 1.0 (<2.0) EU/dL Ur Leukocyte Esterase SMALL H (NEGATIVE) U Hyaline Cast (Auto) 2-4 (0-2/LPF) Urine RBC 1-3 (0-2/HPF) Urine WBC 3-6 (0-5/HPF) Ur Epithelial Cells FEW (NONE-FEW) Urine Bacteria 2+ H (NEGATIVE) Urine Mucus LIGHT (NONE-MOD) Meds: Medications Generic Name Dose Route Start Last Admin Trade Name Freq PRN Reason Stop Dose Admin Norepinephrine Bitartrate 4 mg in 250 mls @ 7.5 mls/hr 02/17/21 19:00 02/17/21 21:19 Norepinephr-0.9% Nacl 4 Mg/250 IV 2 mcg/min TITRATE JACKIE 7.5 mls/hr Administration Protocol 2 MCG/MIN Fentanyl Citrate 2,500 mcg/ 250 mls @ 2.5 mls/hr 02/17/21 19:27 02/17/21 21:20 Premix IV 25 mcg/hr TITRATE PRN 2.5 mls/hr sedation Administration Protocol 25 MCG/HR Propofol 100 mls @ 3.408 mls/hr 02/17/21 20:30 02/17/21 21:19 Diprivan 100 Ml IV 5 mcg/kg/min TITRATE JACKIE 3.408 mls/hr Administration Protocol 5 MCG/KG/MIN Ceftriaxone Sodium/Dextrose 1 50 mls @ 100 mls/hr 02/17/21 21:08 02/17/21 21:18 gm/ Premix IV 02/17/21 21:37 100 mls/hr ONETIME ONE Administration Azithromycin 500 mg/ Sodium 250 mls @ 250 mls/hr 02/17/21 21:15 Chloride IV ONETIME JACKIE Sodium Chloride 10 ml 02/17/21 18:41 02/17/21 21:20 Sodium Chloride 0.9% 10 Ml Syringe FLUSH 10 ml ASDIRECTED PRN Administration Keep Vein Open Sodium Chloride 2.5 ml 02/17/21 18:41 02/17/21 21:21 Sodium Chloride 0.9% 2.5 Ml Syringe FLUSH 2.5 ml ASDIRECTED PRN Administration Keep Vein Open Discontinued Medications Generic Name Dose Route Start Last Admin Trade Name Freq PRN Reason Stop Dose Admin Dexamethasone 10 mg 02/17/21 21:08 02/17/21 21:18 Dexamethasone 10 Mg/Ml Sdv IVPUSH 02/17/21 21:09 10 mg ONETIME ONE Administration Sodium Chloride 1,000 mls @ 999 mls/hr 02/17/21 18:54 02/17/21 21:18 Normal Saline IV 02/17/21 19:54 999 mls/hr STAT ONE Administration Norepinephrine Bitartrate Confirm 02/17/21 18:52 02/17/21 21:19 Norepinephr-0.9% Nacl 4 Mg/250 Administered 02/17/21 18:53 Not Given Dose 4 mg in 250 mls @ as directed IV .STK-MED ONE Propofol Confirm 02/17/21 20:35 02/17/21 21:14 Diprivan 100 Ml Administered 02/17/21 20:36 Not Given Dose 100 mls @ as directed .ROUTE .STK-MED ONE Departure - Departure Time of Disposition: 22:02 Disposition: Admitted As Inpatient 68 Condition: Critical Clinical Impression: COVID, Pneumonia due to COVID-19 virus, Respiratory failure, Hypoxia, Respiratory arrest, Cardiac arrest, DNR (do not resuscitate) - Discharge Information Referrals: PCP,None [Primary Care Provider] - Sepsis Event Note (ED) - Focused Exam Vital Signs: Vital Signs Temp Pulse Resp BP Pulse Ox 02/17/21 19:32 100.3 F 91 20 81/48 L 97 - My Orders Last 24 Hours: My Active Orders 02/17/21 18:53 PROCALCITONIN [REF] Stat 02/17/21 19:26 RASS Sedation Scale [RC] ASDIRECTED Desired Level of Sedation (RASS) [AST] Click to Edit 02/17/21 19:27 fentaNYL/Normal Saline [fentaNYL 2500 MCG in NS 250 ML (10 MCG/ML)] 2,500 mcg Premix Bag 1 bag IV TITRATE 02/17/21 19:28 INFLUENZA A+B AG SCREEN [RM] Stat Isolation [COMM] Routine 02/17/21 19:29 BLOOD GAS ARTERIAL [BG] Stat 02/17/21 20:18 RASS Sedation Scale [RC] ASDIRECTED Desired Level of Sedation (RASS) [AST] Click to Edit 02/17/21 20:30 propofoL [Diprivan 100 ML] 100 ml IV TITRATE 02/17/21 21:08 cefTRIAXone [Rocephin in Dextrose,Iso-Osm 1 GM/50 ML] 1 gm Premix Bag 1 bag IV ONETIME 02/17/21 21:15 Azithromycin [Zithromax] 500 mg Sodium Chloride 0.9% [Normal Saline AdvBag] 250 ml IV ONETIME 02/17/21 21:18 Patient Status [ADT] Routine - Assessment/Plan Last 24 Hours: My Active Orders 02/17/21 18:53 PROCALCITONIN [REF] Stat 02/17/21 19:26 RASS Sedation Scale [RC] ASDIRECTED Desired Level of Sedation (RASS) [AST] Click to Edit 02/17/21 19:27 fentaNYL/Normal Saline [fentaNYL 2500 MCG in NS 250 ML (10 MCG/ML)] 2,500 mcg Premix Bag 1 bag IV TITRATE 02/17/21 19:28 INFLUENZA A+B AG SCREEN [RM] Stat Isolation [COMM] Routine 02/17/21 19:29 BLOOD GAS ARTERIAL [BG] Stat 02/17/21 20:18 RASS Sedation Scale [RC] ASDIRECTED Desired Level of Sedation (RASS) [AST] Click to Edit 02/17/21 20:30 propofoL [Diprivan 100 ML] 100 ml IV TITRATE 02/17/21 21:08 cefTRIAXone [Rocephin in Dextrose,Iso-Osm 1 GM/50 ML] 1 gm Premix Bag 1 bag IV ONETIME 02/17/21 21:15 Azithromycin [Zithromax] 500 mg Sodium Chloride 0.9% [Normal Saline AdvBag] 250 ml IV ONETIME 02/17/21 21:18 Patient Status [ADT] Routine
[2021-02-17] MEDS: Azithromycin 500 MG in Sodium Chloride 0.9% 250 ML IV SCH (22:13)
[2021-02-17] MEDS ORDERED: Lactated Ringers 1,000 ML IV ONE (22:15)
[2021-02-17] MEDS ORDERED: REMDESIVIR 200 MG in Sodium Chloride 0.9% 250 ML IV ONE (22:45)
[2021-02-17] MEDS ORDERED: Morphine 2 MG/ML SYRINGE IVPUSH PRN (22:48)
[2021-02-17 22:50] LABS: CORONAVIRUS COVID-19 NAA POSITIVE (NEGATIVE); INFLUENZA A NAA NEGATIVE (NEGATIVE); INFLUENZA B NAA NEGATIVE (NEGATIVE)
--- NOTE | 2021-02-17 22:54 | PCM.HP.2 ---
H&P History of Present Illness - General Date of Service: 02/17/21 Admit Problem/Dx: Admission Diagnosis/Problem Admission Diagnosis/Problem Respiratory failure requiring intubation - History of Present Illness Initial Comments - Free Text/Narative: 85 yo male with pmh of CHF, hypertension, atrial fibrillation on Eliquis, diabetes, dementia, who was recently diagnosed with COVID at [facility] who presented to the ED with respiratory distress and was unresponsive. Patient was intubated and placed on vasopressors due to hypotension even before the start of sedating medications. He was coded with CPR and epinephrine and had return of pulse. After discussions with FAmily it was decided to make him comfort measures and patient was extubated. For now family is wanting to continue the Levophed drip. - Related Data Allergies/Adverse Reactions: Allergies Allergy/AdvReac Type Severity Reaction Status Date / Time No Known Allergies Allergy Verified 02/17/21 19:48 Home Medications: Home Meds Aspirin [Adult Low Dose Aspirin EC] 81 mg PO DAILY 09/29/13 [History] Multivitamin [Multivitamins] 1 each PO DAILY 09/29/13 [History] bisacodyL [Laxative] 10 mg RC DAILY PRN 09/29/13 [History] OLANZapine [ZyPREXA] 10 mg PO BEDTIME 08/23/20 [History] Potassium Chloride [Klor-Con M20] 20 meq PO BID 08/23/20 [History] Nystatin [Nystop] 100,000 units TOP QID #1 bottle 08/27/20 [Rx] Acetaminophen 500 mg PO TID 10/28/20 [History] Apixaban [Eliquis] 5 mg PO BID 30 Days #60 tablet 11/02/20 [Rx] FLUoxetine HCl [Prozac] 20 mg PO DAILY 30 Days #30 11/02/20 [Rx] Furosemide [Lasix] 40 mg PO BID 30 Days #120 tab 11/02/20 [Rx] Losartan Potassium 50 mg PO DAILY 30 Days #30 tab 11/02/20 [Rx] Metoprolol Tartrate [Lopressor] 25 mg PO BID 30 Days #60 tablet 11/02/20 [Rx] levoFLOXacin [Levaquin] 750 mg PO DAILY 5 Days #15 tab 11/02/20 [Rx] Past Medical History HEENT History: Reports: Impaired Vision Cardiovascular History: Reports: Afib, Heart Failure, Hypertension Respiratory History: Reports: COPD Genitourinary History: Reports: Other (See Below) Other Genitourinary History: incont urine Musculoskeletal History: Reports: Arthritis Other Musculoskeletal History: fx hip as teenager Neurological History: Reports: CVA Psychiatric History: Reports: Dementia, Depression Endocrine/Metabolic History: Reports: Diabetes, Type II Dermatologic History: Reports: Cellulitis, Venous Stasis Dermatitis - Infectious Disease History Infectious Disease History: Reports: Chicken Pox, Measles, Mumps, Novel Aristides navirus - Past Surgical History HEENT Surgical History: Reports: Tonsillectomy Musculoskeletal Surgical History: Reports: Hip Replacement Other Musculoskeletal Surgeries/Procedures:: right hip replaced. Social & Family History - Family History Family Medical History: No Pertinent Family History Cardiac: Reports: NM Neurological: Reports: CVA - Tobacco Use Tobacco Use Status *Q: Never Tobacco User - Caffeine Use Caffeine Use: Reports: Coffee - Recreational Drug Use Recreational Drug Use: No H&P Review of Systems - Review of Systems: Review Of Systems: Comprehensive ROS is negative, except as noted in HPI. Exam - Exam Exam: See Below - Vital Signs Vital Signs: Last Vital Signs Temp 37.9 C 02/17/21 19:32 Pulse 83 02/17/21 22:42 Resp 20 02/17/21 22:42 BP 94/56 L 02/17/21 22:42 Pulse Ox 96 02/17/21 22:42 - Exam General: Obtunded HEENT: Mucosa Moist & [place] Lungs: Decreased Breath Sounds, Rhonchi Cardiovascular: Regular Rate, Regular Rhythm GI/Abdominal Exam: Normal Bowel Sounds, Soft, Non-Tender Extremities: Non-Tender, No Pedal Edema Skin: Other (blue arms and legs with slow capilary refill) - Patient Data Lab Results Last 24 hrs: Laboratory Results - last 24 hr 02/17/21 02/17/21 02/17/21 Range/Units 18:53 18:53 18:53 WBC 5.96 (4.0-11.0) K/uL RBC 4.69 (4.50-5.90) M/uL Hgb 14.0 (13.0-17.0) g/dL Hct 42.8 (38.0-50.0) % MCV 91.3 (80.0-98.0) fL MCH 29.9 (27.0-32.0) pg MCHC 32.7 (31.0-37.0) g/dL RDW Std Deviation 48.3 (28.0-62.0) fl RDW Coeff of Edna 15 (11.0-15.0) % Plt Count 138 L (150-400) K/uL MPV 12.00 (7.40-12.00) fL Neut % (Auto) 66.6 (48.0-80.0) % Lymph % (Auto) 19.6 (16.0-40.0) % Humphreys % (Auto) 13.3 (0.0-15.0) % Eos % (Auto) 0.3 (0.0-7.0) % Baso % (Auto) 0.2 (0.0-1.5) % Neut # (Auto) 4.0 (1.4-5.7) K/uL Lymph # (Auto) 1.2 (0.6-2.4) K/uL Humphreys # (Auto) 0.8 (0.0-0.8) K/uL Eos # (Auto) 0.0 (0.0-0.7) K/uL Baso # (Auto) 0.0 (0.0-0.1) K/uL Nucleated RBC % 0.0 /100WBC Nucleated RBCs # 0 K/uL INR 1.28 APTT 35.3 H (18.6-31.3) SEC Sodium 140 (136-148) mmol/L Potassium 4.0 (3.5-5.1) mmol/L Chloride 105 (98-107) mmol/L Carbon Dioxide 26.1 (21.0-32.0) mmol/L BUN 20 H (7.0-18.0) mg/dL Creatinine 0.9 (0.8-1.3) mg/dL Est Cr Clr Drug Dosing TNP Estimated GFR (MDRD) > 60.0 ml/min Glucose 119 H (74-106) mg/dL Lactic Acid (0.4-2.0) mmol/L Calcium 7.9 L (8.5-10.1) mg/dL Magnesium 2.0 (1.8-2.4) mg/dL Total Bilirubin 0.6 (0.2-1.0) mg/dL AST 19 (15-37) IU/L ALT 12 L (14-63) IU/L Alkaline Phosphatase 59 (46-116) U/L Troponin I < 0.050 (0.000-0.056) ng/mL Total Protein 6.8 (6.4-8.2) g/dL Albumin 2.5 L (3.4-5.0) g/dL Globulin 4.3 H (2.6-4.0) g/dL Albumin/Globulin Ratio 0.6 L (0.9-1.6) Urine Color Urine Appearance Urine pH (5.0-8.0) Ur Specific Cedar (1.001-1.035) Urine Protein (NEGATIVE) mg/dL Urine Glucose (UA) (NEGATIVE) mg/dL Urine Ketones (NEGATIVE) mg/dL Urine Occult Blood (NEGATIVE) Urine Nitrite (NEGATIVE) Urine Bilirubin (NEGATIVE) Urine Urobilinogen (<2.0) EU/dL Ur Leukocyte Esterase (NEGATIVE) U Hyaline Cast (Auto) (0-2/LPF) Urine RBC (0-2/HPF) Urine WBC (0-5/HPF) Ur Epithelial Cells (NONE-FEW) Urine Bacteria (NEGATIVE) Urine Mucus (NONE-MOD) Influenza Type A RNA (NEGATIVE) Influenza Type B RNA (NEGATIVE) 02/17/21 02/17/21 02/17/21 Range/Units 18:53 20:18 22:00 WBC (4.0-11.0) K/uL RBC (4.50-5.90) M/uL Hgb (13.0-17.0) g/dL Hct (38.0-50.0) % MCV (80.0-98.0) fL MCH (27.0-32.0) pg MCHC (31.0-37.0) g/dL RDW Std Deviation (28.0-62.0) fl RDW Coeff of Edna (11.0-15.0) % Plt Count (150-400) K/uL MPV (7.40-12.00) fL Neut % (Auto) (48.0-80.0) % Lymph % (Auto) (16.0-40.0) % Humphreys % (Auto) (0.0-15.0) % Eos % (Auto) (0.0-7.0) % Baso % (Auto) (0.0-1.5) % Neut # (Auto) (1.4-5.7) K/uL Lymph # (Auto) (0.6-2.4) K/uL Humphreys # (Auto) (0.0-0.8) K/uL Eos # (Auto) (0.0-0.7) K/uL Baso # (Auto) (0.0-0.1) K/uL Nucleated RBC % /100WBC Nucleated RBCs # K/uL INR APTT (18.6-31.3) SEC Sodium (136-148) mmol/L Potassium (3.5-5.1) mmol/L Chloride (98-107) mmol/L Carbon Dioxide (21.0-32.0) mmol/L BUN (7.0-18.0) mg/dL Creatinine (0.8-1.3) mg/dL Est Cr Clr Drug Dosing Estimated GFR (MDRD) ml/min Glucose (74-106) mg/dL Lactic Acid 1.4 (0.4-2.0) mmol/L Calcium (8.5-10.1) mg/dL Magnesium (1.8-2.4) mg/dL Total Bilirubin (0.2-1.0) mg/dL AST (15-37) IU/L ALT (14-63) IU/L Alkaline Phosphatase (46-116) U/L Troponin I (0.000-0.056) ng/mL Total Protein (6.4-8.2) g/dL Albumin (3.4-5.0) g/dL Globulin (2.6-4.0) g/dL Albumin/Globulin Ratio (0.9-1.6) Urine Color YELLOW Urine Appearance SLT CLOUDY Urine pH 5.0 (5.0-8.0) Ur Specific Cedar >= 1.030 (1.001-1.035) Urine Protein TRACE H (NEGATIVE) mg/dL Urine Glucose (UA) NEGATIVE (NEGATIVE) mg/dL Urine Ketones TRACE H (NEGATIVE) mg/dL Urine Occult Blood TRACE-INTACT H (NEGATIVE) Urine Nitrite NEGATIVE (NEGATIVE) Urine Bilirubin NEGATIVE (NEGATIVE) Urine Urobilinogen 1.0 (<2.0) EU/dL Ur Leukocyte Esterase SMALL H (NEGATIVE) U Hyaline Cast (Auto) 2-4 (0-2/LPF) Urine RBC 1-3 (0-2/HPF) Urine WBC 3-6 (0-5/HPF) Ur Epithelial Cells FEW (NONE-FEW) Urine Bacteria 2+ H (NEGATIVE) Urine Mucus LIGHT (NONE-MOD) Influenza Type A RNA NEGATIVE (NEGATIVE) Influenza Type B RNA NEGATIVE (NEGATIVE) Result Diagrams: 02/17/21 18:53 02/17/21 18:53 Sepsis Event Note - Focused Exam Vital Signs: Vital Signs Temp Pulse Resp BP Pulse Ox 02/17/21 22:42 83 20 94/56 L 96 02/17/21 22:18 81 20 91/46 L 97 02/17/21 19:32 37.9 C 91 20 81/48 L 97 - Problem List (1) Encephalopathy acute SNOMED Code(s): 74066904, 461284312 ICD Code: G93.40 - ENCEPHALOPATHY, UNSPECIFIED Status: Acute Current Visit: Yes (2) Palliative care patient SNOMED Code(s): 997505696, 916600566 ICD Code: Z51.5 - ENCOUNTER FOR PALLIATIVE CARE Status: Acute Current Visit: Yes (3) Comfort measures only status SNOMED Code(s): 32756323760051 ICD Code: Z51.5 - ENCOUNTER FOR PALLIATIVE CARE Status: Acute Current Visit: Yes (4) COVID SNOMED Code(s): 207479431 ICD Code: U07.1 - COVID-19 Status: Acute Current Visit: Yes (5) Cardiac arrest SNOMED Code(s): 033658698 ICD Code: I46.9 - CARDIAC ARREST, CAUSE UNSPECIFIED Status: Acute Current Visit: Yes (6) Pneumonia due to COVID-19 virus SNOMED Code(s): 616119180873546398 ICD Code: U07.1 - COVID-19; J12.82 - PNEUMONIA DUE TO CORONAVIRUS DISEASE 2018 Status: Acute Current Visit: Yes (7) Respiratory arrest SNOMED Code(s): 14852785 ICD Code: R09.2 - RESPIRATORY ARREST Status: Acute Current Visit: Yes (8) Respiratory failure SNOMED Code(s): 765705289 ICD Code: J96.90 - RESPIRATORY FAILURE, UNSP, UNSP W HYPOXIA OR HYPERCAPNIA Status: Acute Current Visit: Yes (9) Acute exacerbation of congestive heart failure SNOMED Code(s): 143354656, 18273805738086 ICD Code: I50.9 - HEART FAILURE, UNSPECIFIED Status: Acute Current Visit: Yes Qualifiers: Heart failure type: unspecified Qualified Code(s): I50.9 - Heart failure, unspecified (10) Pneumonia SNOMED Code(s): 068642741 ICD Code: J18.9 - PNEUMONIA, UNSPECIFIED ORGANISM Status: Acute Priority: High Current Visit: Yes Qualifiers: Qualified Code(s): J18.9 - Pneumonia, unspecified organism (11) Afib SNOMED Code(s): 29336736 ICD Code: I48.91 - UNSPECIFIED ATRIAL FIBRILLATION Status: Chronic Current Visit: Yes Qualifiers: Atrial fibrillation type: chronic (12) Atrial fibrillation SNOMED Code(s): 95713339 ICD Code: I48.91 - UNSPECIFIED ATRIAL FIBRILLATION Status: Chronic Current Visit: Yes (13) CHF (congestive heart failure) SNOMED Code(s): 32726839 ICD Code: I50.9 - HEART FAILURE, UNSPECIFIED Status: Chronic Priority: Low Current Visit: Yes Qualifiers: Heart failure type: unspecified Heart failure chronicity: acute Qualified Code(s): I50.9 - Heart failure, unspecified (14) Dementia SNOMED Code(s): 07340722 ICD Code: F03.90 - UNSPECIFIED DEMENTIA WITHOUT BEHAVIORAL DISTURBANCE Status: Chronic Current Visit: Yes Qualifiers: Dementia type: unspecified type Dementia behavioral disturbance: without behavioral disturbance Qualified Code(s): F03.90 - Unspecified dementia without behavioral disturbance (15) Diabetes mellitus SNOMED Code(s): 33428785 ICD Code: E11.9 - TYPE 2 DIABETES MELLITUS WITHOUT COMPLICATIONS Status: Chronic Priority: Low Current Visit: Yes Qualifiers: Diabetes mellitus type: type 2 (16) History of CVA (cerebrovascular accident) SNOMED Code(s): 734362805 ICD Code: Z86.73 - PRSNL HX OF TIA (TIA), AND CEREB INFRC W/O RESID DEFICITS Status: Chronic Current Visit: No (17) Hypertension SNOMED Code(s): 62129569 ICD Code: I10 - ESSENTIAL (PRIMARY) HYPERTENSION Status: Chronic Priority: Low Current Visit: No Problem List Initiated/Reviewed/Updated: Yes Orders Last 24hrs: Active Orders 24 hr Category Date Time Status Patient Status [ADT] Routine ADT 02/17/21 21:18 Active Antiembolic Devices [RC] PER UNIT ROUTINE Care 02/17/21 22:49 Ordered Cardiac Monitoring [RC] . DIRECTED Care 02/17/21 18:41 Active Insert Urinary Catheter [OM.PC] Q24H Care 02/17/21 18:45 Ordered Oxygen Therapy [RC] PRN Care 02/17/21 22:48 Ordered RASS Sedation Scale [RC] ASDIRECTED Care 02/17/21 19:26 Active RASS Sedation Scale [RC] ASDIRECTED Care 02/17/21 20:18 Active Urinary Catheter Assessment [RC] Q4H Care 02/17/21 18:42 Active VTE/DVT Education [RC] PER UNIT ROUTINE Care 02/17/21 22:48 Ordered Vital Signs [RC] Q4H Care 02/17/21 22:48 Ordered Regular Diet [DIET] Diet 02/17/21 Breakfast Ordered BLOOD GAS ARTERIAL [BG] Stat Lab 02/17/21 19:29 Ordered CBC W/O DIFF,HEMOGRAM [HEME] AM Lab 02/18/21 05:11 Ordered CBC W/O DIFF,HEMOGRAM [HEME] AM Lab 02/19/21 05:11 Ordered CBC W/O DIFF,HEMOGRAM [HEME] AM Lab 02/20/21 05:11 Ordered COMPREHENSIVE METABOLIC PN,CMP [CHEM] AM Lab 02/18/21 05:11 Ordered COMPREHENSIVE METABOLIC PN,CMP [CHEM] AM Lab 02/19/21 05:11 Ordered COMPREHENSIVE METABOLIC PN,CMP [CHEM] AM Lab 02/20/21 05:11 Ordered COVID-19/FLU A+B [MOLEC] Stat Lab 02/17/21 22:00 Received CULTURE BLOOD [BC] Stat Lab 02/17/21 18:53 Received CULTURE BLOOD [BC] Stat Lab 02/17/21 20:07 Received CULTURE URINE [MREF] Stat Lab 02/17/21 20:18 Received INFLUENZA A+B AG SCREEN [RM] Stat Lab 02/17/21 19:28 Ordered PROCALCITONIN [REF] Stat Lab 02/17/21 18:53 Received Azithromycin [Zithromax] Med 02/18/21 22:45 Ordered 500 mg IV Q24H Azithromycin [Zithromax] 500 mg Med 02/17/21 21:15 Active Sodium Chloride 0.9% [Normal Saline AdvBag] 250 ml IV ONETIME Lactated Ringers [Ringers, Lactated] 1,000 ml Med 02/17/21 22:15 Active IV .BOLUS Morphine Med 02/17/21 22:48 Ordered 2 mg IVPUSH Q2H PRN Norepinephrine Bit/0.9 % NaCl [Norepinephr-0.9% NaCl 4 Med 02/17/21 19:00 Act sal mg/250] 4 mg in 250 ml IV TITRATE Remdesivir 100 mg Med 02/17/21 22:45 Ordered Sodium Chloride 0.9% [Normal Saline AdvBag] 100 ml IV Q24H Remdesivir 200 mg Med 02/17/21 22:45 Ordered Sodium Chloride 0.9% [Normal Saline] 250 ml IV ONETIME Sodium Chloride 0.9% [Saline Flush] Med 02/17/21 18:41 Active 10 ml FLUSH ASDIRECTED PRN Sodium Chloride 0.9% [Saline Flush] Med 02/17/21 18:41 Active 2.5 ml FLUSH ASDIRECTED PRN cefTRIAXone [Rocephin in Dextrose,Iso-Osm 1 GM/50 ML] 1 Med 02/18/21 23:00 Ordered gm Premix Bag 1 bag IV Q24H dexAMETHasone Med 02/18/21 22:45 Ordered 6 mg PO Q24H fentaNYL/Normal Saline [fentaNYL 2500 MCG in NS 250 ML Med 02/17/21 19:27 Active (10 MCG/ML)] 2,500 mcg Premix Bag 1 bag IV TITRATE propofoL [Diprivan 100 ML] 100 ml Med 02/17/21 20:30 Active IV TITRATE Blood Culture x2 Reflex Set [OM.PC] Stat Ot 02/17/21 18:43 Ordered Desired Level of Sedation (RASS) [AST] Click to Edit Ot 02/17/21 19:26 Ordered Desired Level of Sedation (RASS) [AST] Click to Edit Ot 02/17/21 20:18 Ordered Isolation [COMM] Routine Ot 02/17/21 19:28 Active Saline Lock Insert [OM.PC] Stat Ot 02/17/21 18:41 Ordered Sequential Compression Device [OM.PC] Per Unit Routine Ot 02/17/21 22:48 Ordered Resuscitation Status Routine Resus Stat 02/17/21 22:48 Ordered Medication Orders Azithromycin (Azithromycin 500 Mg Vial) 500 mg IV Q24H JACKIE Dexamethasone (Dexamethasone 4 Mg Tab) 6 mg PO Q24H JACKIE Norepinephrine Bitartrate (Norepinephr-0.9% Nacl 4 Mg/250) 4 mg in 250 mls @ 7.5 mls/hr IV TITRATE JACKIE; Protocol Last Admin: 02/17/21 21:19 Dose: 2 mcg/min, 7.5 mls/hr Documented by: SADIA Fentanyl Citrate 2,500 mcg/ (Premix) 250 mls @ 2.5 mls/hr IV TITRATE PRN; Protocol PRN Reason: sedation Last Admin: 02/17/21 21:20 Dose: 25 mcg/hr, 2.5 mls/hr Documented by: SADIA Propofol (Diprivan 100 Ml) 100 mls @ 3.408 mls/hr IV TITRATE JACKIE; Protocol Last Admin: 02/17/21 21:19 Dose: 5 mcg/kg/min, 3.408 mls/hr Documented by: SADIA Azithromycin 500 mg/ Sodium (Chloride) 250 mls @ 250 mls/hr IV ONETIME JACKIE Last Admin: 02/17/21 22:13 Dose: 250 mls/hr Documented by: SADIA Lactated Ringer's (Ringers, Lactated) 1,000 mls @ 999 mls/hr IV .BOLUS ONE Stop: 02/17/21 23:15 Last Admin: 02/17/21 22:16 Dose: 999 mls/hr Documented by: SADIA Remdesivir 100 mg/ Sodium (Chloride) 100 mls @ 100 mls/hr IV Q24H JACKIE Stop: 02/20/21 23:44 Remdesivir 200 mg/ Sodium (Chloride) 250 mls @ 250 mls/hr IV ONETIME ONE Stop: 02/17/21 22:46 Ceftriaxone Sodium/Dextrose 1 (gm/ Premix) 50 mls @ 100 mls/hr IV Q24H JACKIE Morphine Sulfate (Morphine 2 Mg/Ml Syringe) 2 mg IVPUSH Q2H PRN PRN Reason: Pain (severe 7-10) Stop: 02/18/21 22:49 Sodium Chloride (Sodium Chloride 0.9% 10 Ml Syringe) 10 ml FLUSH ASDIRECTED PRN PRN Reason: Keep Vein Open Last Admin: 02/17/21 21:20 Dose: 10 ml Documented by: SADIA Sodium Chloride (Sodium Chloride 0.9% 2.5 Ml Syringe) 2.5 ml FLUSH ASDIRECTED PRN PRN Reason: Keep Vein Open Last Admin: 02/17/21 21:21 Dose: 2.5 ml Documented by: SADIA Assessment/Plan Comment:: 85 yo male s/p cardiac arrest with acute hypoxic respiratory failure, and shock from COVID-19. We will admit for further comfort measures.
[2021-02-18 06:15] LABS: BLOOD UREA NITROGEN,BUN 20 mg/dL (7.0-18.0); CARBON DIOXIDE,CO2 24.8 mmol/L (21.0-32.0); CHLORIDE,CL 106 mmol/L (98-107); GLUCOSE RANDOM 187 mg/dL (74-106); POTASSIUM,K 3.9 mmol/L (3.5-5.1); SODIUM,NA 142 mmol/L (136-148)
--- NOTE | 2021-02-18 15:40 | PN ---
REMY Physician - Brief Progress [id number]/22/2021 15:38[facility] Naren Gregg, LUICNA - FALGUNI (SANDRA) - FALGUNI ICUHOAMBER LYNCH, Covid +Date of Service 02/18/2021 15:38HPI/E vents of Note eICU progress note:Patient is an 85-year-old male admitted to the ICU on 02/17 for acut e hypoxic respiratory failure secondary to Covid pneumonia. Patient was extubated today and transiti on to comfort care measures only. Discussed with bedside nurse. Video examination unable to be perf ormed for privacy reasons. Patient is mental status currently improved, he is awake and alert. Map in the 60s, was able to eat some Jell-O earlier. Family present, continue discussions with bedside t norma.Recommendations:-Continue current comfort measuresThank you for involving us in the care of this patient.Interventions Major-Respiratory failure - evaluation and management
--- NOTE | 2021-02-18 19:19 | PCM.PN ---
- General Info Date of Service: 02/18/21 - Review of Systems Systems Review Comment:: patient denies any pain, no shortness of breath, more alert this morning - Patient Data Vitals - Most Recent: Last Vital Signs Temp 36.1 C 02/18/21 16:00 Pulse 83 02/17/21 22:42 Resp 22 H 02/18/21 17:00 BP 121/70 02/18/21 17:00 Pulse Ox 93 L 02/18/21 17:00 Weight - Most Recent: 98.339 kg I&O - Last 24 Hours: Intake & Output 02/18/21 02/18/21 02/18/21 06:59 14:59 22:59 Intake Total 250 Output Total 300 Balance -50 Lab Results Last 24 Hours: Laboratory Results - last 24 hr 02/17/21 02/17/21 02/17/21 Range/Units 18:53 18:53 18:53 WBC (4.0-11.0) K/uL RBC (4.50-5.90) M/uL Hgb (13.0-17.0) g/dL Hct (38.0-50.0) % MCV (80.0-98.0) fL MCH (27.0-32.0) pg MCHC (31.0-37.0) g/dL RDW Std Deviation (28.0-62.0) fl RDW Coeff of Edna (11.0-15.0) % Plt Count (150-400) K/uL MPV (7.40-12.00) fL Nucleated RBC % /100WBC Nucleated RBCs # K/uL INR 1.28 APTT 35.3 H (18.6-31.3) SEC VBG pH (7.31-7.41) VBG pCO2 (41-51) mmHG VBG pO2 mmHG VBG HCO3 (23-28) mEq/L VBG Total CO2 (24-29) mmol/L VBG Base Excess (-2.0-3.0) Sodium 140 (136-148) mmol/L Potassium 4.0 (3.5-5.1) mmol/L Chloride 105 (98-107) mmol/L Carbon Dioxide 26.1 (21.0-32.0) mmol/L BUN 20 H (7.0-18.0) mg/dL Creatinine 0.9 (0.8-1.3) mg/dL Est Cr Clr Drug Dosing TNP Estimated GFR (MDRD) > 60.0 ml/min Glucose 119 H (74-106) mg/dL POC Glucose (70-99) mg/dL Lactic Acid 1.4 (0.4-2.0) mmol/L Calcium 7.9 L (8.5-10.1) mg/dL Magnesium 2.0 (1.8-2.4) mg/dL Total Bilirubin 0.6 (0.2-1.0) mg/dL AST 19 (15-37) IU/L ALT 12 L (14-63) IU/L Alkaline Phosphatase 59 (46-116) U/L Troponin I < 0.050 (0.000-0.056) ng/mL Total Protein 6.8 (6.4-8.2) g/dL Albumin 2.5 L (3.4-5.0) g/dL Globulin 4.3 H (2.6-4.0) g/dL Albumin/Globulin Ratio 0.6 L (0.9-1.6) Urine Color Urine Appearance Urine pH (5.0-8.0) Ur Specific Loda (1.001-1.035) Urine Protein (NEGATIVE) mg/dL Urine Glucose (UA) (NEGATIVE) mg/dL Urine Ketones (NEGATIVE) mg/dL Urine Occult Blood (NEGATIVE) Urine Nitrite (NEGATIVE) Urine Bilirubin (NEGATIVE) Urine Urobilinogen (<2.0) EU/dL Ur Leukocyte Esterase (NEGATIVE) U Hyaline Cast (Auto) (0-2/LPF) Urine RBC (0-2/HPF) Urine WBC (0-5/HPF) Ur Epithelial Cells (NONE-FEW) Urine Bacteria (NEGATIVE) Urine Mucus (NONE-MOD) Influenza Type A RNA (NEGATIVE) Influenza Type B RNA (NEGATIVE) SARS-CoV-2 RNA (ISABEL) (NEGATIVE) 02/17/21 02/17/21 02/18/21 Range/Units 20:18 22:00 00:21 WBC (4.0-11.0) K/uL RBC (4.50-5.90) M/uL Hgb (13.0-17.0) g/dL Hct (38.0-50.0) % MCV (80.0-98.0) fL MCH (27.0-32.0) pg MCHC (31.0-37.0) g/dL RDW Std Deviation (28.0-62.0) fl RDW Coeff of Edna (11.0-15.0) % Plt Count (150-400) K/uL MPV (7.40-12.00) fL Nucleated RBC % /100WBC Nucleated RBCs # K/uL INR APTT (18.6-31.3) SEC VBG pH (7.31-7.41) VBG pCO2 (41-51) mmHG VBG pO2 mmHG VBG HCO3 (23-28) mEq/L VBG Total CO2 (24-29) mmol/L VBG Base Excess (-2.0-3.0) Sodium (136-148) mmol/L Potassium (3.5-5.1) mmol/L Chloride (98-107) mmol/L Carbon Dioxide (21.0-32.0) mmol/L BUN (7.0-18.0) mg/dL Creatinine (0.8-1.3) mg/dL Est Cr Clr Drug Dosing Estimated GFR (MDRD) ml/min Glucose (74-106) mg/dL POC Glucose 177 H (70-99) mg/dL Lactic Acid (0.4-2.0) mmol/L Calcium (8.5-10.1) mg/dL Magnesium (1.8-2.4) mg/dL Total Bilirubin (0.2-1.0) mg/dL AST (15-37) IU/L ALT (14-63) IU/L Alkaline Phosphatase (46-116) U/L Troponin I (0.000-0.056) ng/mL Total Protein (6.4-8.2) g/dL Albumin (3.4-5.0) g/dL Globulin (2.6-4.0) g/dL Albumin/Globulin Ratio (0.9-1.6) Urine Color YELLOW Urine Appearance SLT CLOUDY Urine pH 5.0 (5.0-8.0) Ur Specific Loda >= 1.030 (1.001-1.035) Urine Protein TRACE H (NEGATIVE) mg/dL Urine Glucose (UA) NEGATIVE (NEGATIVE) mg/dL Urine Ketones TRACE H (NEGATIVE) mg/dL Urine Occult Blood TRACE-INTACT H (NEGATIVE) Urine Nitrite NEGATIVE (NEGATIVE) Urine Bilirubin NEGATIVE (NEGATIVE) Urine Urobilinogen 1.0 (<2.0) EU/dL Ur Leukocyte Esterase SMALL H (NEGATIVE) U Hyaline Cast (Auto) 2-4 (0-2/LPF) Urine RBC 1-3 (0-2/HPF) Urine WBC 3-6 (0-5/HPF) Ur Epithelial Cells FEW (NONE-FEW) Urine Bacteria 2+ H (NEGATIVE) Urine Mucus LIGHT (NONE-MOD) Influenza Type A RNA NEGATIVE (NEGATIVE) Influenza Type B RNA NEGATIVE (NEGATIVE) SARS-CoV-2 RNA (ISABEL) POSITIVE H (NEGATIVE) 02/18/21 02/18/21 02/18/21 Range/Units 00:50 05:00 05:00 WBC 6.39 (4.0-11.0) K/uL RBC 4.93 (4.50-5.90) M/uL Hgb 14.7 (13.0-17.0) g/dL Hct 45.4 (38.0-50.0) % MCV 92.1 (80.0-98.0) fL MCH 29.8 (27.0-32.0) pg MCHC 32.4 (31.0-37.0) g/dL RDW Std Deviation 48.8 (28.0-62.0) fl RDW Coeff of Edna 15 (11.0-15.0) % Plt Count 173 (150-400) K/uL MPV 12.10 H (7.40-12.00) fL Nucleated RBC % 0.0 /100WBC Nucleated RBCs # 0 K/uL INR APTT (18.6-31.3) SEC VBG pH 7.30 L (7.31-7.41) VBG pCO2 52 H (41-51) mmHG VBG pO2 72 mmHG VBG HCO3 25 (23-28) mEq/L VBG Total CO2 23 L (24-29) mmol/L VBG Base Excess -1.9 (-2.0-3.0) Sodium 142 (136-148) mmol/L Potassium 3.9 (3.5-5.1) mmol/L Chloride 106 (98-107) mmol/L Carbon Dioxide 24.8 (21.0-32.0) mmol/L BUN 20 H (7.0-18.0) mg/dL Creatinine 0.9 (0.8-1.3) mg/dL Est Cr Clr Drug Dosing 64.21 Estimated GFR (MDRD) > 60.0 ml/min Glucose 187 H (74-106) mg/dL POC Glucose (70-99) mg/dL Lactic Acid (0.4-2.0) mmol/L Calcium 7.8 L (8.5-10.1) mg/dL Magnesium (1.8-2.4) mg/dL Total Bilirubin 0.5 (0.2-1.0) mg/dL AST 26 (15-37) IU/L ALT 21 (14-63) IU/L Alkaline Phosphatase 60 (46-116) U/L Troponin I (0.000-0.056) ng/mL Total Protein 7.3 (6.4-8.2) g/dL Albumin 2.6 L (3.4-5.0) g/dL Globulin 4.7 H (2.6-4.0) g/dL Albumin/Globulin Ratio 0.6 L (0.9-1.6) Urine Color Urine Appearance Urine pH (5.0-8.0) Ur Specific Loda (1.001-1.035) Urine Protein (NEGATIVE) mg/dL Urine Glucose (UA) (NEGATIVE) mg/dL Urine Ketones (NEGATIVE) mg/dL Urine Occult Blood (NEGATIVE) Urine Nitrite (NEGATIVE) Urine Bilirubin (NEGATIVE) Urine Urobilinogen (<2.0) EU/dL Ur Leukocyte Esterase (NEGATIVE) U Hyaline Cast (Auto) (0-2/LPF) Urine RBC (0-2/HPF) Urine WBC (0-5/HPF) Ur Epithelial Cells (NONE-FEW) Urine Bacteria (NEGATIVE) Urine Mucus (NONE-MOD) Influenza Type A RNA (NEGATIVE) Influenza Type B RNA (NEGATIVE) SARS-CoV-2 RNA (ISABEL) (NEGATIVE) Martell Results Last 24 Hours: Microbiology 02/17/21 18:53 Aerobic Blood Culture - Preliminary Blood - Venous NO GROWTH AFTER 1 DAY Anaerobic Blood Culture - Preliminary NO GROWTH AFTER 1 DAY Med Orders - Current: Current Medications Dexamethasone (Dexamethasone 4 Mg Tab) 6 mg PO Q24H JACKIE Norepinephrine Bitartrate (Norepinephr-0.9% Nacl 4 Mg/250) 4 mg in 250 mls @ 7.5 mls/hr IV TITRATE JACKIE; Protocol Last Titration: 02/18/21 13:44 Dose: Infused Documented by: Fentanyl Citrate 2,500 mcg/ (Premix) 250 mls @ 2.5 mls/hr IV TITRATE PRN; Prot ocol PRN Reason: sedation Last Admin: 02/17/21 21:20 Dose: 25 mcg/hr, 2.5 mls/hr Documented by: Propofol (Diprivan 100 Ml) 100 mls @ 3.408 mls/hr IV TITRATE JACKIE; Protocol Last Admin: 02/17/21 21:19 Dose: 5 mcg/kg/min, 3.408 mls/hr Documented by: Azithromycin 500 mg/ Sodium (Chloride) 250 mls @ 250 mls/hr IV ONETIME JACKIE Last Admin: 02/17/21 22:13 Dose: 250 mls/hr Documented by: Remdesivir 100 mg/ Sodium (Chloride) 100 mls @ 100 mls/hr IV Q24H JACKIE Stop: 02/21/21 23:59 Ceftriaxone Sodium/Dextrose 1 (gm/ Premix) 50 mls @ 100 mls/hr IV Q24H JACKIE Azithromycin 500 mg/ Sodium (Chloride) 250 mls @ 250 mls/hr IV Q24H JACKIE Morphine Sulfate (Morphine 2 Mg/Ml Syringe) 2 mg IVPUSH Q2H PRN PRN Reason: Pain (severe 7-10) Stop: 02/18/21 22:49 Sodium Chloride (Sodium Chloride 0.9% 10 Ml Syringe) 10 ml FLUSH ASDIRECTED PRN PRN Reason: Keep Vein Open Last Admin: 02/17/21 21:20 Dose: 10 ml Documented by: Sodium Chloride (Sodium Chloride 0.9% 2.5 Ml Syringe) 2.5 ml FLUSH ASDIRECTED PRN PRN Reason: Keep Vein Open Last Admin: 02/17/21 21:21 Dose: 2.5 ml Documented by: Discontinued Medications Dexamethasone (Dexamethasone 10 Mg/Ml Sdv) 10 mg IVPUSH ONETIME ONE Stop: 02/17/21 21:09 Last Admin: 02/17/21 21:18 Dose: 10 mg Documented by: Epinephrine HCl (Epinephrine 1:10,000 1 Mg/10 Ml Syringe) 1 mg IV .STK-MED ONE Stop: 02/17/21 15:56 Epinephrine HCl (Epinephrine 1:10,000 1 Mg/10 Ml Syringe) 1 mg IV .STK-MED ONE Stop: 02/17/21 15:56 Sodium Chloride (Normal Saline) 1,000 mls @ 999 mls/hr IV STAT ONE Stop: 02/17/21 19:54 Last Admin: 02/17/21 21:18 Dose: 999 mls/hr Documented by: Norepinephrine Bitartrate (Norepinephr-0.9% Nacl 4 Mg/250) Confirm Administered Dose 4 mg in 250 mls @ as directed IV .STK-MED ONE Stop: 02/17/21 18:53 Last Admin: 02/17/21 21:19 Dose: Not Given Documented by: Propofol (Diprivan 100 Ml) Confirm Administered Dose 100 mls @ as directed .ROUTE .STK-MED ONE Stop: 02/17/21 20:36 Last Admin: 02/17/21 21:14 Dose: Not Given Documented by: Ceftriaxone Sodium/Dextrose 1 (gm/ Premix) 50 mls @ 100 mls/hr IV ONETIME ONE Stop: 02/17/21 21:37 Last Admin: 02/17/21 21:18 Dose: 100 mls/hr Documented by: Lactated Ringer's (Ringers, Lactated) 1,000 mls @ 999 mls/hr IV .BOLUS ONE Stop: 02/17/21 23:15 Last Admin: 02/17/21 22:16 Dose: 999 mls/hr Documented by: Remdesivir 200 mg/ Sodium (Chloride) 250 mls @ 250 mls/hr IV ONETIME ONE Stop: 02/17/21 22:46 Last Admin: 02/18/21 00:00 Dose: 250 mls/hr Documented by: - Exam General: Alert, No Acute Distress Neck: Supple Lungs: Normal Respiratory Effort, Rhonchi Cardiovascular: Regular Rate, Regular Rhythm GI/Abdominal Exam: Soft, Non-Tender Extremities: Non-Tender, No Pedal Edema Skin: Warm, Dry, Intact Neurological: No New Focal Deficit - Patient Data Lab Results Last 24 hrs: Laboratory Results - last 24 hr 02/17/21 02/17/21 02/17/21 Range/Units 18:53 18:53 18:53 WBC (4.0-11.0) K/uL RBC (4.50-5.90) M/uL Hgb (13.0-17.0) g/dL Hct (38.0-50.0) % MCV (80.0-98.0) fL MCH (27.0-32.0) pg MCHC (31.0-37.0) g/dL RDW Std Deviation (28.0-62.0) fl RDW Coeff of Edna (11.0-15.0) % Plt Count (150-400) K/uL MPV (7.40-12.00) fL Nucleated RBC % /100WBC Nucleated RBCs # K/uL INR 1.28 APTT 35.3 H (18.6-31.3) SEC VBG pH (7.31-7.41) VBG pCO2 (41-51) mmHG VBG pO2 mmHG VBG HCO3 (23-28) mEq/L VBG Total CO2 (24-29) mmol/L VBG Base Excess (-2.0-3.0) Sodium 140 (136-148) mmol/L Potassium 4.0 (3.5-5.1) mmol/L Chloride 105 (98-107) mmol/L Carbon Dioxide 26.1 (21.0-32.0) mmol/L BUN 20 H (7.0-18.0) mg/dL Creatinine 0.9 (0.8-1.3) mg/dL Est Cr Clr Drug Dosing TNP Estimated GFR (MDRD) > 60.0 ml/min Glucose 119 H (74-106) mg/dL POC Glucose (70-99) mg/dL Lactic Acid 1.4 (0.4-2.0) mmol/L Calcium 7.9 L (8.5-10.1) mg/dL Magnesium 2.0 (1.8-2.4) mg/dL Total Bilirubin 0.6 (0.2-1.0) mg/dL AST 19 (15-37) IU/L ALT 12 L (14-63) IU/L Alkaline Phosphatase 59 (46-116) U/L Troponin I < 0.050 (0.000-0.056) ng/mL Total Protein 6.8 (6.4-8.2) g/dL Albumin 2.5 L (3.4-5.0) g/dL Globulin 4.3 H (2.6-4.0) g/dL Albumin/Globulin Ratio 0.6 L (0.9-1.6) Urine Color Urine Appearance Urine pH (5.0-8.0) Ur Specific Loda (1.001-1.035) Urine Protein (NEGATIVE) mg/dL Urine Glucose (UA) (NEGATIVE) mg/dL Urine Ketones (NEGATIVE) mg/dL Urine Occult Blood (NEGATIVE) Urine Nitrite (NEGATIVE) Urine Bilirubin (NEGATIVE) Urine Urobilinogen (<2.0) EU/dL Ur Leukocyte Esterase (NEGATIVE) U Hyaline Cast (Auto) (0-2/LPF) Urine RBC (0-2/HPF) Urine WBC (0-5/HPF) Ur Epithelial Cells (NONE-FEW) Urine Bacteria (NEGATIVE) Urine Mucus (NONE-MOD) Influenza Type A RNA (NEGATIVE) Influenza Type B RNA (NEGATIVE) SARS-CoV-2 RNA (ISABEL) (NEGATIVE) 02/17/21 02/17/21 02/18/21 Range/Units 20:18 22:00 00:21 WBC (4.0-11.0) K/uL RBC (4.50-5.90) M/uL Hgb (13.0-17.0) g/dL Hct (38.0-50.0) % MCV (80.0-98.0) fL MCH (27.0-32.0) pg MCHC (31.0-37.0) g/dL RDW Std Deviation (28.0-62.0) fl RDW Coeff of Edna (11.0-15.0) % Plt Count (150-400) K/uL MPV (7.40-12.00) fL Nucleated RBC % /100WBC Nucleated RBCs # K/uL INR APTT (18.6-31.3) SEC VBG pH (7.31-7.41) VBG pCO2 (41-51) mmHG VBG pO2 mmHG VBG HCO3 (23-28) mEq/L VBG Total CO2 (24-29) mmol/L VBG Base Excess (-2.0-3.0) Sodium (136-148) mmol/L Potassium (3.5-5.1) mmol/L Chloride (98-107) mmol/L Carbon Dioxide (21.0-32.0) mmol/L BUN (7.0-18.0) mg/dL Creatinine (0.8-1.3) mg/dL Est Cr Clr Drug Dosing Estimated GFR (MDRD) ml/min Glucose (74-106) mg/dL POC Glucose 177 H (70-99) mg/dL Lactic Acid (0.4-2.0) mmol/L Calcium (8.5-10.1) mg/dL Magnesium (1.8-2.4) mg/dL Total Bilirubin (0.2-1.0) mg/dL AST (15-37) IU/L ALT (14-63) IU/L Alkaline Phosphatase (46-116) U/L Troponin I (0.000-0.056) ng/mL Total Protein (6.4-8.2) g/dL Albumin (3.4-5.0) g/dL Globulin (2.6-4.0) g/dL Albumin/Globulin Ratio (0.9-1.6) Urine Color YELLOW Urine Appearance SLT CLOUDY Urine pH 5.0 (5.0-8.0) Ur Specific Loda >= 1.030 (1.001-1.035) Urine Protein TRACE H (NEGATIVE) mg/dL Urine Glucose (UA) NEGATIVE (NEGATIVE) mg/dL Urine Ketones TRACE H (NEGATIVE) mg/dL Urine Occult Blood TRACE-INTACT H (NEGATIVE) Urine Nitrite NEGATIVE (NEGATIVE) Urine Bilirubin NEGATIVE (NEGATIVE) Urine Urobilinogen 1.0 (<2.0) EU/dL Ur Leukocyte Esterase SMALL H (NEGATIVE) U Hyaline Cast (Auto) 2-4 (0-2/LPF) Urine RBC 1-3 (0-2/HPF) Urine WBC 3-6 (0-5/HPF) Ur Epithelial Cells FEW (NONE-FEW) Urine Bacteria 2+ H (NEGATIVE) Urine Mucus LIGHT (NONE-MOD) Influenza Type A RNA NEGATIVE (NEGATIVE) Influenza Type B RNA NEGATIVE (NEGATIVE) SARS-CoV-2 RNA (ISABEL) POSITIVE H (NEGATIVE) 02/18/21 02/18/21 02/18/21 Range/Units 00:50 05:00 05:00 WBC 6.39 (4.0-11.0) K/uL RBC 4.93 (4.50-5.90) M/uL Hgb 14.7 (13.0-17.0) g/dL Hct 45.4 (38.0-50.0) % MCV 92.1 (80.0-98.0) fL MCH 29.8 (27.0-32.0) pg MCHC 32.4 (31.0-37.0) g/dL RDW Std Deviation 48.8 (28.0-62.0) fl RDW Coeff of Edna 15 (11.0-15.0) % Plt Count 173 (150-400) K/uL MPV 12.10 H (7.40-12.00) fL Nucleated RBC % 0.0 /100WBC Nucleated RBCs # 0 K/uL INR APTT (18.6-31.3) SEC VBG pH 7.30 L (7.31-7.41) VBG pCO2 52 H (41-51) mmHG VBG pO2 72 mmHG VBG HCO3 25 (23-28) mEq/L VBG Total CO2 23 L (24-29) mmol/L VBG Base Excess -1.9 (-2.0-3.0) Sodium 142 (136-148) mmol/L Potassium 3.9 (3.5-5.1) mmol/L Chloride 106 (98-107) mmol/L Carbon Dioxide 24.8 (21.0-32.0) mmol/L BUN 20 H (7.0-18.0) mg/dL Creatinine 0.9 (0.8-1.3) mg/dL Est Cr Clr Drug Dosing 64.21 Estimated GFR (MDRD) > 60.0 ml/min Glucose 187 H (74-106) mg/dL POC Glucose (70-99) mg/dL Lactic Acid (0.4-2.0) mmol/L Calcium 7.8 L (8.5-10.1) mg/dL Magnesium (1.8-2.4) mg/dL Total Bilirubin 0.5 (0.2-1.0) mg/dL AST 26 (15-37) IU/L ALT 21 (14-63) IU/L Alkaline Phosphatase 60 (46-116) U/L Troponin I (0.000-0.056) ng/mL Total Protein 7.3 (6.4-8.2) g/dL Albumin 2.6 L (3.4-5.0) g/dL Globulin 4.7 H (2.6-4.0) g/dL Albumin/Globulin Ratio 0.6 L (0.9-1.6) Urine Color Urine Appearance Urine pH (5.0-8.0) Ur Specific Loda (1.001-1.035) Urine Protein (NEGATIVE) mg/dL Urine Glucose (UA) (NEGATIVE) mg/dL Urine Ketones (NEGATIVE) mg/dL Urine Occult Blood (NEGATIVE) Urine Nitrite (NEGATIVE) Urine Bilirubin (NEGATIVE) Urine Urobilinogen (<2.0) EU/dL Ur Leukocyte Esterase (NEGATIVE) U Hyaline Cast (Auto) (0-2/LPF) Urine RBC (0-2/HPF) Urine WBC (0-5/HPF) Ur Epithelial Cells (NONE-FEW) Urine Bacteria (NEGATIVE) Urine Mucus (NONE-MOD) Influenza Type A RNA (NEGATIVE) Influenza Type B RNA (NEGATIVE) SARS-CoV-2 RNA (ISABEL) (NEGATIVE) Result Diagrams: 02/18/21 05:00 02/18/21 05:00 Martell Results Last 24 hrs: Microbiology 02/17/21 18:53 Aerobic Blood Culture - Preliminary Blood - Venous NO GROWTH AFTER 1 DAY Anaerobic Blood Culture - Preliminary NO GROWTH AFTER 1 DAY Sepsis Event Note - Evaluation Sepsis Screening Result: No Definite Risk - Focused Exam Vital Signs: Vital Signs Temp Resp BP Pulse Ox 02/18/21 17:00 22 H 121/70 93 L 02/18/21 16:00 36.1 C 14 110/71 90 L 02/18/21 15:00 20 106/66 91 L 02/18/21 14:10 20 123/81 91 L 02/18/21 13:00 19 114/93 H 92 L 02/18/21 12:00 36.2 C 21 H 131/83 95 02/18/21 11:00 18 107/67 91 L 02/18/21 10:00 16 108/64 93 L 02/18/21 09:00 18 125/65 95 02/18/21 08:00 36 C L 18 136/85 95 - Problem List & Annotations (1) Encephalopathy acute SNOMED Code(s): 78306326, 857301565 Code(s): G93.40 - ENCEPHALOPATHY, UNSPECIFIED Status: Acute Current Visit: Yes (2) Palliative care patient SNOMED Code(s): 706048561, 432476470 Code(s): Z51.5 - ENCOUNTER FOR PALLIATIVE CARE Status: Acute Current Visit: Yes (3) Comfort measures only status SNOMED Code(s): 07068337573139 Code(s): Z51.5 - ENCOUNTER FOR PALLIATIVE CARE Status: Acute Current Visit: Yes (4) COVID SNOMED Code(s): 689233128 Code(s): U07.1 - COVID-19 Status: Acute Current Visit: Yes (5) Cardiac arrest SNOMED Code(s): 270594067 Code(s): I46.9 - CARDIAC ARREST, CAUSE UNSPECIFIED Status: Acute Current Visit: Yes (6) Pneumonia due to COVID-19 virus SNOMED Code(s): 419375947477202061 Code(s): U07.1 - COVID-19; J12.82 - PNEUMONIA DUE TO CORONAVIRUS DISEASE 2019 Status: Acute Current Visit: Yes (7) Respiratory arrest SNOMED Code(s): 28107513 Code(s): R09.2 - RESPIRATORY ARREST Status: Acute Current Visit: Yes (8) Respiratory failure SNOMED Code(s): 418618614 Code(s): J96.90 - RESPIRATORY FAILURE, UNSP, UNSP W HYPOXIA OR HYPERCAPNIA Status: Acute Current Visit: Yes (9) Acute exacerbation of congestive heart failure SNOMED Code(s): 864740719, 44574089189962 Code(s): I50.9 - HEART FAILURE, UNSPECIFIED Status: Acute Current Visit: Yes Qualifiers: Heart failure type: unspecified Qualified Code(s): I50.9 - Heart failure, unspecified (10) Pneumonia SNOMED Code(s): 671269584 Code(s): J18.9 - PNEUMONIA, UNSPECIFIED ORGANISM Status: Acute Priority: High Current Visit: Yes Qualifiers: Qualified Code(s): J18.9 - Pneumonia, unspecified organism (11) Afib SNOMED Code(s): 20711597 Code(s): I48.91 - UNSPECIFIED ATRIAL FIBRILLATION Status: Chronic Current Visit: Yes Qualifiers: Atrial fibrillation type: chronic (12) Atrial fibrillation SNOMED Code(s): 61275620 Code(s): I48.91 - UNSPECIFIED ATRIAL FIBRILLATION Status: Chronic Current Visit: Yes (13) CHF (congestive heart failure) SNOMED Code(s): 28653233 Code(s): I50.9 - HEART FAILURE, UNSPECIFIED Status: Chronic Priority: Low Current Visit: Yes Qualifiers: Heart failure type: unspecified Heart failure chronicity: acute Qualified Code(s): I50.9 - Heart failure, unspecified (14) Dementia SNOMED Code(s): 12284897 Code(s): F03.90 - UNSPECIFIED DEMENTIA WITHOUT BEHAVIORAL DISTURBANCE Status: Chronic Current Visit: Yes Qualifiers: Dementia type: unspecified type Dementia behavioral disturbance: without behavioral disturbance Qualified Code(s): F03.90 - Unspecified dementia without behavioral disturbance (15) Diabetes mellitus SNOMED Code(s): 68294050 Code(s): E11.9 - TYPE 2 DIABETES MELLITUS WITHOUT COMPLICATIONS Status: Chronic Priority: Low Current Visit: Yes Qualifiers: Diabetes mellitus type: type 2 (16) History of CVA (cerebrovascular accident) SNOMED Code(s): 160398862 Code(s): Z86.73 - PRSNL HX OF TIA (TIA), AND CEREB INFRC W/O RESID DEFICITS Status: Chronic Current Visit: No (17) Hypertension SNOMED Code(s): 17714108 Code(s): I10 - ESSENTIAL (PRIMARY) HYPERTENSION Status: Chronic Priority: Low Current Visit: No - Problem List Review Problem List Initiated/Reviewed/Updated: Yes - My Orders Last 24 Hours: My Active Orders 02/17/21 22:48 Oxygen Therapy [RC] PRN VTE/DVT Education [RC] PER UNIT ROUTINE Vital Signs [RC] Q1H Morphine 2 mg IVPUSH Q2H PRN Sequential Compression Device [OM.PC] Per Unit Routine Resuscitation Status Routine 02/17/21 22:49 Antiembolic Devices [RC] PER UNIT ROUTINE 02/18/21 21:00 Apixaban [Eliquis] 5 mg PO BID cefTRIAXone [Rocephin in Dextrose,Iso-Osm 1 GM/50 ML] 1 gm Premix Bag 1 bag IV Q24H dexAMETHasone 6 mg PO Q24H 02/18/21 22:00 Azithromycin [Zithromax] 500 mg Sodium Chloride 0.9% [Normal Saline AdvBag] 250 ml IV Q24H 02/18/21 23:00 Remdesivir 100 mg Sodium Chloride 0.9% [Normal Saline AdvBag] 100 ml IV Q24H 02/19/21 05:11 CBC W/O DIFF,HEMOGRAM [HEME] AM COMPREHENSIVE METABOLIC PN,CMP [CHEM] AM 02/20/21 05:11 CBC W/O DIFF,HEMOGRAM [HEME] AM COMPREHENSIVE METABOLIC PN,CMP [CHEM] AM - Plan Plan:: 85 yo male s/p cardiac arrest with acute hypoxic respiratory failure, and shock from COVID-19. Patient has woken up. PAtient has been weaned off levophed drip and is on 10 L NC. After discussion with family patient will remain DNR/DNI but goals of care will be expanded to more than just comfort, will also give antiobioitics and therapies for COVID Plan Hypoxia: on 10 L NC COVID: Remdesivir and Dexamethason possible pneumonia: on rocephin and azithromycin A.fib: continue Eliquis but holding metorpolol due to lower blood pressures
[2021-02-18] MEDS: cefTRIAXone 1 GM in Premix Bag 1 BAG IV SCH (20:09)
[2021-02-18] MEDS ORDERED: Dexamethasone 4 MG Tab PO SCH (21:00)
[2021-02-18] MEDS: Azithromycin 500 MG in Sodium Chloride 0.9% 250 ML IV SCH ×2 (21:20→22:44)
[2021-02-18] MEDS: Dexamethasone 4 MG/ML SDV IVPUSH SCH (21:46)
[2021-02-18] MEDS: Apixaban 5 MG Tab PO SCH (22:03)
[2021-02-18] MEDS ORDERED: Azithromycin 500 MG Vial IV SCH (22:45)
[2021-02-18] MEDS: REMDESIVIR 100 MG in Sodium Chloride 0.9% 100 ML IV SCH (22:49)
[2021-02-18] MEDS: Metoprolol Tartrate 25 MG Tab PO SCH (22:52)
[2021-02-19] MEDS ORDERED: Glucagon,Human Recombinant 1 MG Vial IM PRN (00:25)
[2021-02-19] MEDS ORDERED: 50% Dextrose in Water 50 ML Syringe IVPUSH PRN (00:25)
[2021-02-19 07:24] LABS: BLOOD UREA NITROGEN,BUN 18 mg/dL (7.0-18.0); CARBON DIOXIDE,CO2 27.2 mmol/L (21.0-32.0); CHLORIDE,CL 110 mmol/L (98-107); GLUCOSE RANDOM 137 mg/dL (74-106); POTASSIUM,K 3.6 mmol/L (3.5-5.1); SODIUM,NA 145 mmol/L (136-148)
[2021-02-19] MEDS: Apixaban 5 MG Tab PO SCH ×2 (08:23→20:50)
[2021-02-19] MEDS: Insulin Aspart 100 Units/ML 3 ML Pen SUBCUT SCH ×3 (08:23→18:08)
[2021-02-19] MEDS: Metoprolol Tartrate 25 MG Tab PO SCH ×2 (08:23→20:50)
[2021-02-19] MEDS ORDERED: Furosemide 40 MG/4 ML VIAL IVPUSH ONE (13:18)
--- NOTE | 2021-02-19 16:55 | PCM.PN ---
- General Info Date of Service: 02/19/21 - Review of Systems Systems Review Comment:: more awake today, denies any chest pain, fevers - Patient Data Vitals - Most Recent: Last Vital Signs Temp 36.3 C 02/19/21 12:00 Pulse 77 02/19/21 08:23 Resp 25 H 02/19/21 14:00 BP 159/96 H 02/19/21 14:00 Pulse Ox 95 02/19/21 14:00 Weight - Most Recent: 110.994 kg I&O - Last 24 Hours: Intake & Output 02/19/21 02/19/21 02/19/21 06:59 14:59 22:59 Intake Total 840 600 Output Total 400 0 Balance 440 600 Lab Results Last 24 Hours: Laboratory Results - last 24 hr 02/17/21 02/19/21 02/19/21 Range/Units 18:53 06:00 06:00 WBC 4.83 (4.0-11.0) K/uL RBC 4.73 (4.50-5.90) M/uL Hgb 14.0 (13.0-17.0) g/dL Hct 43.1 (38.0-50.0) % MCV 91.1 (80.0-98.0) fL MCH 29.6 (27.0-32.0) pg MCHC 32.5 (31.0-37.0) g/dL RDW Std Deviation 47.0 (28.0-62.0) fl RDW Coeff of Edna 14 (11.0-15.0) % Plt Count 159 (150-400) K/uL MPV 12.20 H (7.40-12.00) fL Nucleated RBC % 0.0 /100WBC Nucleated RBCs # 0 K/uL Sodium 145 (136-148) mmol/L Potassium 3.6 (3.5-5.1) mmol/L Chloride 110 H (98-107) mmol/L Carbon Dioxide 27.2 (21.0-32.0) mmol/L BUN 18 (7.0-18.0) mg/dL Creatinine 0.7 L (0.8-1.3) mg/dL Est Cr Clr Drug Dosing 82.56 mL/min Estimated GFR (MDRD) > 60.0 ml/min Glucose 137 H (74-106) mg/dL POC Glucose (70-99) mg/dL Calcium 7.9 L (8.5-10.1) mg/dL Total Bilirubin 0.3 (0.2-1.0) mg/dL AST 25 (15-37) IU/L ALT 18 (14-63) IU/L Alkaline Phosphatase 52 (46-116) U/L Total Protein 6.9 (6.4-8.2) g/dL Albumin 2.4 L (3.4-5.0) g/dL Globulin 4.5 H (2.6-4.0) g/dL Albumin/Globulin Ratio 0.5 L (0.9-1.6) Procalcitonin 0.08 ng/mL 02/19/21 02/19/21 Range/Units 06:00 10:58 WBC (4.0-11.0) K/uL RBC (4.50-5.90) M/uL Hgb (13.0-17.0) g/dL Hct (38.0-50.0) % MCV (80.0-98.0) fL MCH (27.0-32.0) pg MCHC (31.0-37.0) g/dL RDW Std Deviation (28.0-62.0) fl RDW Coeff of Edna (11.0-15.0) % Plt Count (150-400) K/uL MPV (7.40-12.00) fL Nucleated RBC % /100WBC Nucleated RBCs # K/uL Sodium (136-148) mmol/L Potassium (3.5-5.1) mmol/L Chloride (98-107) mmol/L Carbon Dioxide (21.0-32.0) mmol/L BUN (7.0-18.0) mg/dL Creatinine (0.8-1.3) mg/dL Est Cr Clr Drug Dosing mL/min Estimated GFR (MDRD) ml/min Glucose (74-106) mg/dL POC Glucose 123 H 148 H (70-99) mg/dL Calcium (8.5-10.1) mg/dL Total Bilirubin (0.2-1.0) mg/dL AST (15-37) IU/L ALT (14-63) IU/L Alkaline Phosphatase (46-116) U/L Total Protein (6.4-8.2) g/dL Albumin (3.4-5.0) g/dL Globulin (2.6-4.0) g/dL Albumin/Globulin Ratio (0.9-1.6) Procalcitonin ng/mL Martell Results Last 24 Hours: Microbiology 02/17/21 20:07 Aerobic Blood Culture - Preliminary Blood - Venous - Lab Draw NO GROWTH AFTER 1 DAY Anaerobic Blood Culture - Preliminary NO GROWTH AFTER 1 DAY 02/17/21 18:53 Aerobic Blood Culture - Preliminary Blood - Venous NO GROWTH AFTER 1 DAY Anaerobic Blood Culture - Preliminary NO GROWTH AFTER 1 DAY Med Orders - Current: Current Medications Apixaban (Apixaban 5 Mg Tab) 5 mg PO BID [facility] Last Admin: 02/19/21 08:23 Dose: 5 mg Documented by: Dexamethasone (Dexamethasone 4 Mg/Ml Sdv) 6 mg IVPUSH DAILY@2100 [facility] Last Admin: 02/18/21 21:46 Dose: 6 mg Documented by: Dextrose/Water (50% Dextrose In Water 50 Ml Syringe) 50 ml IVPUSH ASDIRECTED PRN PRN Reason: Hypoglycemia Glucagon (Glucagon,Human Recombinant 1 Mg Vial) 1 mg IM ASDIRECTED PRN PRN Reason: Hypoglycemia Remdesivir 100 mg/ Sodium (Chloride) 100 mls @ 100 mls/hr IV Q24H [facility] Stop: 02/21/21 23:59 Last Admin: 02/18/21 22:49 Dose: 100 mls/hr Documented by: Ceftriaxone Sodium/Dextrose 1 (gm/ Premix) 50 mls @ 100 mls/hr IV Q24H [facility] Last Admin: 02/18/21 20:09 Dose: 100 mls/hr Documented by: Azithromycin 500 mg/ Sodium (Chloride) 250 mls @ 250 mls/hr IV Q24H [facility] Last Admin: 02/18/21 22:44 Dose: Not Given Documented by: Insulin Aspart (Insulin Aspart 100 Units/Ml 3 Ml Pen) 0 unit SUBCUT TIDAC [facility]; Protocol Last Admin: 02/19/21 11:13 Dose: Not Given Documented by: Metoprolol Tartrate (Metoprolol Tartrate 25 Mg Tab) 25 mg PO BID [facility] Last Admin: 02/19/21 08:23 Dose: 25 mg Documented by: Sodium Chloride (Sodium Chloride 0.9% 10 Ml Syringe) 10 ml FLUSH ASDIRECTED PRN PRN Reason: Keep Vein Open Last Admin: 02/17/21 21:20 Dose: 10 ml Documented by: Sodium Chloride (Sodium Chloride 0.9% 2.5 Ml Syringe) 2.5 ml FLUSH ASDIRECTED PRN PRN Reason: Keep Vein Open Last Admin: 02/17/21 21:21 Dose: 2.5 ml Documented by: Discontinued Medications Dexamethasone (Dexamethasone 10 Mg/Ml Sdv) 10 mg IVPUSH ONETIME ONE Stop: 02/17/21 21:09 Last Admin: 02/17/21 21:18 Dose: 10 mg Documented by: Dexamethasone (Dexamethasone 4 Mg Tab) 6 mg PO Q24H [facility] Last Admin: 02/18/21 22:20 Dose: Not Given Documented by: Epinephrine HCl (Epinephrine 1:10,000 1 Mg/10 Ml Syringe) 1 mg IV .STK-MED ONE Stop: 02/17/21 15:56 Epinephrine HCl (Epinephrine 1:10,000 1 Mg/10 Ml Syringe) 1 mg IV .STK-MED ONE Stop: 02/17/21 15:56 Furosemide (Furosemide 40 Mg/4 Ml Vial) 40 mg IVPUSH NOW ONE Stop: 02/19/21 13:19 Last Admin: 02/19/21 14:16 Dose: 40 mg Documented by: Norepinephrine Bitartrate (Norepinephr-0.9% Nacl 4 Mg/250) 4 mg in 250 mls @ 7.5 mls/hr IV TITRATE [facility]; Protocol Last Titration: 02/18/21 13:44 Dose: Infused Documented by: Sodium Chloride (Normal Saline) 1,000 mls @ 999 mls/hr IV STAT ONE Stop: 02/17/21 19:54 Last Admin: 02/17/21 21:18 Dose: 999 mls/hr Documented by: Norepinephrine Bitartrate (Norepinephr-0.9% Nacl 4 Mg/250) Confirm Administered Dose 4 mg in 250 mls @ as directed IV .STK-MED ONE Stop: 02/17/21 18:53 Last Admin: 02/17/21 21:19 Dose: Not Given Documented by: Fentanyl Citrate 2,500 mcg/ (Premix) 250 mls @ 2.5 mls/hr IV TITRATE PRN; Protocol PRN Reason: sedation Last Admin: 02/17/21 21:20 Dose: 25 mcg/hr, 2.5 mls/hr Documented by: Propofol (Diprivan 100 Ml) 100 mls @ 3.408 mls/hr IV TITRATE [facility]ACK[facility]; Protocol Last Admin: 02/17/21 21:19 Dose: 5 mcg/kg/min, 3.408 mls/hr Documented by: Propofol (Diprivan 100 Ml) Confirm Administered Dose 100 mls @ as directed . ROUTE .STK-MED ONE Stop: 02/17/21 20:36 Last Admin: 02/17/21 21:14 Dose: Not Given Documented by: Ceftriaxone Sodium/Dextrose 1 (gm/ Premix) 50 mls @ 100 mls/hr IV ONETIME ONE Stop: 02/17/21 21:37 Last Admin: 02/17/21 21:18 Dose: 100 mls/hr Documented by: Azithromycin 500 mg/ Sodium (Chloride) 250 mls @ 250 mls/hr IV ONETIME [facility] Last Admin: 02/18/21 21:20 Dose: 250 mls/hr Documented by: Lactated Ringer's (Ringers, Lactated) 1,000 mls @ 999 mls/hr IV .BOLUS ONE Stop: 02/17/21 23:15 Last Admin: 02/17/21 22:16 Dose: 999 mls/hr Documented by: Remdesivir 200 mg/ Sodium (Chloride) 250 mls @ 250 mls/hr IV ONETIME ONE Stop: 02/17/21 22:46 Last Admin: 02/18/21 00:00 Dose: 250 mls/hr Documented by: Morphine Sulfate (Morphine 2 Mg/Ml Syringe) 2 mg IVPUSH Q2H PRN PRN Reason: Pain (severe 7-10) Stop: 02/18/21 22:49 - Exam General: Alert, Oriented Neck: Supple Lungs: Clear to Auscultation, Normal Respiratory Effort Cardiovascular: Regular Rate, Regular Rhythm GI/Abdominal Exam: Normal Bowel Sounds, Soft, Non-Tender Extremities: Non-Tender, No Pedal Edema Skin: Warm, Dry, Intact Neurological: No New Focal Deficit - Patient Data Lab Results Last 24 hrs: Laboratory Results - last 24 hr 02/17/21 02/19/21 02/19/21 Range/Units 18:53 06:00 06:00 WBC 4.83 (4.0-11.0) K/uL RBC 4.73 (4.50-5.90) M/uL Hgb 14.0 (13.0-17.0) g/dL Hct 43.1 (38.0-50.0) % MCV 91.1 (80.0-98.0) fL MCH 29.6 (27.0-32.0) pg MCHC 32.5 (31.0-37.0) g/dL RDW Std Deviation 47.0 (28.0-62.0) fl RDW Coeff of Edna 14 (11.0-15.0) % Plt Count 159 (150-400) K/uL MPV 12.20 H (7.40-12.00) fL Nucleated RBC % 0.0 /100WBC Nucleated RBCs # 0 K/uL Sodium 145 (136-148) mmol/L Potassium 3.6 (3.5-5.1) mmol/L Chloride 110 H (98-107) mmol/L Carbon Dioxide 27.2 (21.0-32.0) mmol/L BUN 18 (7.0-18.0) mg/dL Creatinine 0.7 L (0.8-1.3) mg/dL Est Cr Clr Drug Dosing 82.56 mL/min Estimated GFR (MDRD) > 60.0 ml/min Glucose 137 H (74-106) mg/dL POC Glucose (70-99) mg/dL Calcium 7.9 L (8.5-10.1) mg/dL Total Bilirubin 0.3 (0.2-1.0) mg/dL AST 25 (15-37) IU/L ALT 18 (14-63) IU/L Alkaline Phosphatase 52 (46-116) U/L Total Protein 6.9 (6.4-8.2) g/dL Albumin 2.4 L (3.4-5.0) g/dL Globulin 4.5 H (2.6-4.0) g/dL Albumin/Globulin Ratio 0.5 L (0.9-1.6) Procalcitonin 0.08 ng/mL 02/19/21 02/19/21 Range/Units 06:00 10:58 WBC (4.0-11.0) K/uL RBC (4.50-5.90) M/uL Hgb (13.0-17.0) g/dL Hct (38.0-50.0) % MCV (80.0-98.0) fL MCH (27.0-32.0) pg MCHC (31.0-37.0) g/dL RDW Std Deviation (28.0-62.0) fl RDW Coeff of Edna (11.0-15.0) % Plt Count (150-400) K/uL MPV (7.40-12.00) fL Nucleated RBC % /100WBC Nucleated RBCs # K/uL Sodium (136-148) mmol/L Potassium (3.5-5.1) mmol/L Chloride (98-107) mmol/L Carbon Dioxide (21.0-32.0) mmol/L BUN (7.0-18.0) mg/dL Creatinine (0.8-1.3) mg/dL Est Cr Clr Drug Dosing mL/min Estimated GFR (MDRD) ml/min Glucose (74-106) mg/dL POC Glucose 123 H 148 H (70-99) mg/dL Calcium (8.5-10.1) mg/dL Total Bilirubin (0.2-1.0) mg/dL AST (15-37) IU/L ALT (14-63) IU/L Alkaline Phosphatase (46-116) U/L Total Protein (6.4-8.2) g/dL Albumin (3.4-5.0) g/dL Globulin (2.6-4.0) g/dL Albumin/Globulin Ratio (0.9-1.6) Procalcitonin ng/mL Result Diagrams: 02/19/21 06:00 02/19/21 06:00 Martell Results Last 24 hrs: Microbiology 02/17/21 20:07 Aerobic Blood Culture - Preliminary Blood - Venous - Lab Draw NO GROWTH AFTER 1 DAY Anaerobic Blood Culture - Preliminary NO GROWTH AFTER 1 DAY 02/17/21 18:53 Aerobic Blood Culture - Preliminary Blood - Venous NO GROWTH AFTER 1 DAY Anaerobic Blood Culture - Preliminary NO GROWTH AFTER 1 DAY Sepsis Event Note - Evaluation Sepsis Screening Result: No Definite Risk - Focused Exam Vital Signs: Vital Signs Temp Pulse Resp BP BP Pulse Ox 02/19/21 14:00 25 H 159/96 H 95 02/19/21 13:00 26 H 99/72 92 L 02/19/21 12:00 36.3 C 22 H 102/67 89 L 02/19/21 11:00 22 H 100/56 L 91 L 02/19/21 10:00 23 H 94/44 L 91 L 02/19/21 09:00 20 136/84 91 L 02/19/21 08:23 77 120/81 02/19/21 08:00 36.4 C 18 120/81 94 L 02/19/21 07:00 22 H 117/75 95 02/19/21 06:00 20 96/65 91 L 02/19/21 05:00 36.2 C 17 165/88 H 91 L - Problem List & Annotations (1) Encephalopathy acute SNOMED Code(s): 62392408, 253824502 Code(s): G93.40 - ENCEPHALOPATHY, UNSPECIFIED Status: Acute Current Visit: Yes (2) Palliative care patient SNOMED Code(s): 688175823, 997168937 Code(s): Z51.5 - ENCOUNTER FOR PALLIATIVE CARE Status: Acute Current Visit: Yes (3) Comfort measures only status SNOMED Code(s): 58533802980133 Code(s): Z51.5 - ENCOUNTER FOR PALLIATIVE CARE Status: Acute Current Visit: Yes (4) COVID SNOMED Code(s): 064265222 Code(s): U07.1 - COVID-19 Status: Acute Current Visit: Yes (5) Cardiac arrest SNOMED Code(s): 200026520 Code(s): I46.9 - CARDIAC ARREST, CAUSE UNSPECIFIED Status: Acute Current Visit: Yes (6) Pneumonia due to COVID-19 virus SNOMED Code(s): 301932158502884362 Code(s): U07.1 - COVID-19; J12.82 - PNEUMONIA DUE TO CORONAVIRUS DISEASE 2019 Status: Acute Current Visit: Yes (7) Respiratory arrest SNOMED Code(s): 00275666 Code(s): R09.2 - RESPIRATORY ARREST Status: Acute Current Visit: Yes (8) Respiratory failure SNOMED Code(s): 150214555 Code(s): J96.90 - RESPIRATORY FAILURE, UNSP, UNSP W HYPOXIA OR HYPERCAPNIA Status: Acute Current Visit: Yes (9) Acute exacerbation of congestive heart failure SNOMED Code(s): 013331464, 65074788643994 Code(s): I50.9 - HEART FAILURE, UNSPECIFIED Status: Acute Current Visit: Yes Qualifiers: Heart failure type: unspecified Qualified Code(s): I50.9 - Heart failure, unspecified (10) Pneumonia SNOMED Code(s): 119747372 Code(s): J18.9 - PNEUMONIA, UNSPECIFIED ORGANISM Status: Acute Priority: High Current Visit: Yes Qualifiers: Qualified Code(s): J18.9 - Pneumonia, unspecified organism (11) Afib SNOMED Code(s): 94866522 Code(s): I48.91 - UNSPECIFIED ATRIAL FIBRILLATION Status: Chronic Current Visit: Yes Qualifiers: Atrial fibrillation type: chronic (12) Atrial fibrillation SNOMED Code(s): 28986104 Code(s): I48.91 - UNSPECIFIED ATRIAL FIBRILLATION Status: Chronic Current Visit: Yes (13) CHF (congestive heart failure) SNOMED Code(s): 30983923 Code(s): I50.9 - HEART FAILURE, UNSPECIFIED Status: Chronic Priority: Low Current Visit: Yes Qualifiers: Heart failure type: unspecified Heart failure chronicity: acute Qualified Code(s): I50.9 - Heart failure, unspecified (14) Dementia SNOMED Code(s): 86762908 Code(s): F03.90 - UNSPECIFIED DEMENTIA WITHOUT BEHAVIORAL DISTURBANCE Status: Chronic Current Visit: Yes Qualifiers: Dementia type: unspecified type Dementia behavioral disturbance: without behavioral disturbance Qualified Code(s): F03.90 - Unspecified dementia without behavioral disturbance (15) Diabetes mellitus SNOMED Code(s): 31059209 Code(s): E11.9 - TYPE 2 DIABETES MELLITUS WITHOUT COMPLICATIONS Status: Chronic Priority: Low Current Visit: Yes Qualifiers: Diabetes mellitus type: type 2 (16) History of CVA (cerebrovascular accident) SNOMED Code(s): 323240595 Code(s): Z86.73 - PRSNL HX OF TIA (TIA), AND CEREB INFRC W/O RESID DEFICITS Status: Chronic Current Visit: No (17) Hypertension SNOMED Code(s): 56022948 Code(s): I10 - ESSENTIAL (PRIMARY) HYPERTENSION Status: Chronic Priority: Low Current Visit: No - Problem List Review Problem List Initiated/Reviewed/Updated: Yes - My Orders Last 24 Hours: My Active Orders 02/18/21 21:00 Apixaban [Eliquis] 5 mg PO BID cefTRIAXone [Rocephin in Dextrose,Iso-Osm 1 GM/50 ML] 1 gm Premix Bag 1 bag IV Q24H dexAMETHasone [Decadron] 6 mg IVPUSH DAILY@2100 02/18/21 22:00 Azithromycin [Zithromax] 500 mg Sodium Chloride 0.9% [Normal Saline AdvBag] 250 ml IV Q24H 02/18/21 22:45 Metoprolol Tartrate [Lopressor] 25 mg PO BID 02/18/21 23:00 Remdesivir 100 mg Sodium Chloride 0.9% [Normal Saline AdvBag] 100 ml IV Q24H 02/19/21 00:25 Dextrose 50% in Water 50 ml IVPUSH ASDIRECTED PRN Glucagon,Human Recombinant [GlucaGen] 1 mg IM ASDIRECTED PRN 02/19/21 Breakfast Mechanical Soft Diet [DIET] 02/19/21 07:30 Blood Glucose Check, Bedside [RC] TIDAC Insulin Aspart [NovoLOG] See Protocol SUBCUT TIDAC 02/19/21 14:08 Transfer Patient (Change bed) [ADT] Routine 02/20/21 05:11 CBC W/O DIFF,HEMOGRAM [HEME] AM COMPREHENSIVE METABOLIC PN,CMP [CHEM] AM - Plan Plan:: 85 yo male s/p cardiac arrest with acute hypoxic respiratory failure, and shock from COVID-19. Plan Hypoxia: on 4 L NC COVID: Remdesivir and Dexamethason Possible pneumonia: on rocephin and azithromycin A.fib: continue Eliquis resumed metoprolol
[2021-02-19] MEDS: Pantoprazole 40 MG Tab.CR PO SCH (18:07)
[2021-02-19] MEDS: Dexamethasone 4 MG/ML SDV IVPUSH SCH (20:51)
[2021-02-19] MEDS: cefTRIAXone 1 GM in Premix Bag 1 BAG IV SCH (20:54)
[2021-02-19] MEDS: Azithromycin 500 MG in Sodium Chloride 0.9% 250 ML IV SCH (23:10)
[2021-02-20] MEDS: REMDESIVIR 100 MG in Sodium Chloride 0.9% 100 ML IV SCH (00:17)
[2021-02-20] MEDS: Insulin Aspart 100 Units/ML 3 ML Pen SUBCUT SCH ×2 (07:41→14:18)
[2021-02-20 07:52] LABS: BLOOD UREA NITROGEN,BUN 15 mg/dL (7.0-18.0); CARBON DIOXIDE,CO2 28.4 mmol/L (21.0-32.0); CHLORIDE,CL 107 mmol/L (98-107); GLUCOSE RANDOM 160 mg/dL (74-106); POTASSIUM,K 3.4 mmol/L (3.5-5.1); SODIUM,NA 143 mmol/L (136-148)
[2021-02-20] MEDS: Apixaban 5 MG Tab PO SCH (08:10)
[2021-02-20] MEDS: Metoprolol Tartrate 25 MG Tab PO SCH (08:10)
[2021-02-20] MEDS: Pantoprazole 40 MG Tab.CR PO SCH (08:10)
--- NOTE | 2021-02-20 11:59 | PCM.DCSUM1 ---
Discharge Summary - Hospital Course Free Text/Narrative:: 85 y/o M with a h/o dementia, Afib, generalized debility who was [facility] the [facility] with dyspnea and hypoxemia. He was found to have a positive COVID 19 test. On admission he was also septic and required pressor support. He coded and was intubated . His family decided to make him a DNR/DNI. He was extubated. He did well in terms of his respiratory status and only required 4L oxygen to maintain sats above 90%. He continued with Abx and his home meds. His family was agreeable with DNR comfort measures. At this point they would like him to continue with medications but no aggressive measures. He was discharged back to the SNF in a fair condition. Activity : as tolerated. Diet: mechanical soft with nectar thickened liquids and 1:1 supervision with meals. Discharge time was 35 minutes. Exam: General: Elderly male. In no distress. Poor short term memory CVS: S1S2 appreciated. RRR lungs: some wheezes in the left base pa: obese, soft, non tender. ext: no clubbing, cyanosis or edema neuro: moves all extremities. Unable to ambulate due to long standing lower extremity weakness Diagnosis: Stroke: No - Discharge Data Discharge Date: 02/20/21 Discharge Disposition: DC/Tfer to SNF 03 Condition: Fair - Referral to Home Health Primary Care Physician: PCP None - Discharge Plan Home Medications: Home Meds Aspirin [Adult Low Dose Aspirin EC] 81 mg PO DAILY 09/29/13 [History] Multivitamin [Multivitamins] 1 each PO DAILY 09/29/13 [History] bisacodyL [Laxative] 10 mg RC DAILY PRN 09/29/13 [History] OLANZapine [ZyPREXA] 10 mg PO BEDTIME 08/23/20 [History] Nystatin [Nystop] 100,000 units TOP QID #1 bottle 08/27/20 [Rx] Apixaban [Eliquis] 5 mg PO BID 30 Days #60 tablet 11/02/20 [Rx] FLUoxetine HCl [Prozac] 20 mg PO DAILY 30 Days #30 11/02/20 [Rx] Losartan Potassium 50 mg PO DAILY 30 Days #30 tab 11/02/20 [Rx] levoFLOXacin [Levaquin] 750 mg PO DAILY 5 Days #15 tab 11/02/20 [Rx] Metoprolol Tartrate [Lopressor] 25 mg PO BID tablet 02/20/21 [Rx] Referrals: PCP,None [Primary Care Provider] - - Discharge Summary/Plan Comment DC Time >30 min.: Yes Total # of Minutes for Discharge Time: 35 mins - Patient Data Vitals - Most Recent: Last Vital Signs Temp 96.7 F L 02/20/21 07:46 Pulse 83 02/20/21 08:10 Resp 20 02/20/21 07:46 BP 133/92 H 02/20/21 08:10 Pulse Ox 95 02/20/21 07:46 Weight - Most Recent: 244 lb 11.2 oz I&O - Last 24 hours: Intake & Output 02/19/21 02/20/21 02/20/21 22:59 06:59 14:59 Intake Total 1150 Output Total 500 Balance 650 Lab Results - Last 24 hrs: Laboratory Results - last 24 hr 02/19/21 02/20/21 02/20/21 Range/Units 17:42 06:31 07:05 WBC 5.18 (4.0-11.0) K/uL RBC 4.82 (4.50-5.90) M/uL Hgb 14.0 (13.0-17.0) g/dL Hct 43.7 (38.0-50.0) % MCV 90.7 (80.0-98.0) fL MCH 29.0 (27.0-32.0) pg MCHC 32.0 (31.0-37.0) g/dL RDW Std Deviation 46.0 (28.0-62.0) fl RDW Coeff of Edna 14 (11.0-15.0) % Plt Count 152 (150-400) K/uL MPV 12.10 H (7.40-12.00) fL Nucleated RBC % 0.0 /100WBC Nucleated RBCs # 0 K/uL Sodium (136-148) mmol/L Potassium (3.5-5.1) mmol/L Chloride (98-107) mmol/L Carbon Dioxide (21.0-32.0) mmol/L BUN (7.0-18.0) mg/dL Creatinine (0.8-1.3) mg/dL Est Cr Clr Drug Dosing mL/min Estimated GFR (MDRD) ml/min Glucose (74-106) mg/dL POC Glucose 108 H 141 H (70-99) mg/dL Calcium (8.5-10.1) mg/dL Total Bilirubin (0.2-1.0) mg/dL AST (15-37) IU/L ALT (14-63) IU/L Alkaline Phosphatase (46-116) U/L Total Protein (6.4-8.2) g/dL Albumin (3.4-5.0) g/dL Globulin (2.6-4.0) g/dL Albumin/Globulin Ratio (0.9-1.6) 02/20/21 02/20/21 Range/Units 07:05 11:14 WBC (4.0-11.0) K/uL RBC (4.50-5.90) M/uL Hgb (13.0-17.0) g/dL Hct (38.0-50.0) % MCV (80.0-98.0) fL MCH (27.0-32.0) pg MCHC (31.0-37.0) g/dL RDW Std Deviation (28.0-62.0) fl RDW Coeff of Edna (11.0-15.0) % Plt Count (150-400) K/uL MPV (7.40-12.00) fL Nucleated RBC % /100WBC Nucleated RBCs # K/uL Sodium 143 (136-148) mmol/L Potassium 3.4 L (3.5-5.1) mmol/L Chloride 107 (98-107) mmol/L Carbon Dioxide 28.4 (21.0-32.0) mmol/L BUN 15 (7.0-18.0) mg/dL Creatinine 0.8 (0.8-1.3) mg/dL Est Cr Clr Drug Dosing 72.24 mL/min Estimated GFR (MDRD) > 60.0 ml/min Glucose 160 H (74-106) mg/dL POC Glucose 135 H (70-99) mg/dL Calcium 8.0 L (8.5-10.1) mg/dL Total Bilirubin 0.4 (0.2-1.0) mg/dL AST 27 (15-37) IU/L ALT 19 (14-63) IU/L Alkaline Phosphatase 59 (46-116) U/L Total Protein 7.1 (6.4-8.2) g/dL Albumin 2.6 L (3.4-5.0) g/dL Globulin 4.5 H (2.6-4.0) g/dL Albumin/Globulin Ratio 0.6 L (0.9-1.6) VERONIKA Results - Last 24 hrs: Microbiology 02/17/21 20:18 Urine Culture - Final Urine 02/17/21 20:07 Aerobic Blood Culture - Preliminary Blood - Venous - Lab Draw NO GROWTH AFTER 2 DAYS Anaerobic Blood Culture - Preliminary NO GROWTH AFTER 2 DAYS 02/17/21 18:53 Aerobic Blood Culture - Preliminary Blood - Venous NO GROWTH AFTER 2 DAYS Anaerobic Blood Culture - Preliminary NO GROWTH AFTER 2 DAYS Med Orders - Current: Current Medications Apixaban (Apixaban 5 Mg Tab) 5 mg PO BID [facility] Last Admin: 02/20/21 08:10 Dose: 5 mg Documented by: Dexamethasone (Dexamethasone 4 Mg/Ml Sdv) 6 mg IVPUSH DAILY@2100 [facility] Last Admin: 02/19/21 20:51 Dose: 6 mg Documented by: Dextrose/Water (50% Dextrose In Water 50 Ml Syringe) 50 ml IVPUSH ASDIRECTED PRN PRN Reason: Hypoglycemia Glucagon (Glucagon,Human Recombinant 1 Mg Vial) 1 mg IM ASDIRECTED PRN PRN Reason: Hypoglycemia Remdesivir 100 mg/ Sodium (Chloride) 100 mls @ 100 mls/hr IV Q24H [facility] Stop: 02/21/21 23:59 Last Admin: 02/20/21 00:17 Dose: 100 mls/hr Documented by: Ceftriaxone Sodium/Dextrose 1 (gm/ Premix) 50 mls @ 100 mls/hr IV Q24H [facility] Last Admin: 02/19/21 20:54 Dose: 100 mls/hr Documented by: Azithromycin 500 mg/ Sodium (Chloride) 250 mls @ 250 mls/hr IV Q24H [facility] Last Admin: 02/19/21 23:10 Dose: 250 mls/hr Documented by: Insulin Aspart (Insulin Aspart 100 Units/Ml 3 Ml Pen) 0 unit SUBCUT TIDAC [facility]; Protocol Last Admin: 02/20/21 07:41 Dose: Not Given Documented by: Metoprolol Tartrate (Metoprolol Tartrate 25 Mg Tab) 25 mg PO BID [facility] Last Admin: 02/20/21 08:10 Dose: 25 mg Documented by: Pantoprazole Sodium (Pantoprazole 40 Mg Tab.Cr) 40 mg PO DAILY [facility] Last Admin: 02/20/21 08:10 Dose: 40 mg Documented by: Sodium Chloride (Sodium Chloride 0.9% 10 Ml Syringe) 10 ml FLUSH ASDIRECTED PRN PRN Reason: Keep Vein Open Last Admin: 02/17/21 21:20 Dose: 10 ml Documented by: Sodium Chloride (Sodium Chloride 0.9% 2.5 Ml Syringe) 2.5 ml FLUSH ASDIRECTED PRN PRN Reason: Keep Vein Open Last Admin: 02/17/21 21:21 Dose: 2.5 ml Documented by: Discontinued Medications Dexamethasone (Dexamethasone 10 Mg/Ml Sdv) 10 mg IVPUSH ONETIME ONE Stop: 02/17/21 21:09 Last Admin: 02/17/21 21:18 Dose: 10 mg Documented by: Dexamethasone (Dexamethasone 4 Mg Tab) 6 mg PO Q24H JACKIE Last Admin: 02/18/21 22:20 Dose: Not Given Documented by: Epinephrine HCl (Epinephrine 1:10,000 1 Mg/10 Ml Syringe) 1 mg IV .STK-MED ONE Stop: 02/17/21 15:56 Epinephrine HCl (Epinephrine 1:10,000 1 Mg/10 Ml Syringe) 1 mg IV .STK-MED ONE Stop: 02/17/21 15:56 Furosemide (Furosemide 40 Mg/4 Ml Vial) 40 mg IVPUSH NOW ONE Stop: 02/19/21 13:19 Last Admin: 02/19/21 14:16 Dose: 40 mg Documented by: Norepinephrine Bitartrate (Norepinephr-0.9% Nacl 4 Mg/250) 4 mg in 250 mls @ 7.5 mls/hr IV TITRATE JACKIE; Protocol Last Titration: 02/18/21 13:44 Dose: Infused Documented by: Sodium Chloride (Normal Saline) 1,000 mls @ 999 mls/hr IV STAT ONE Stop: 02/17/21 19:54 Last Admin: 02/17/21 21:18 Dose: 999 mls/hr Documented by: Norepinephrine Bitartrate (Norepinephr-0.9% Nacl 4 Mg/250) Confirm Administered Dose 4 mg in 250 mls @ as directed IV .STK-MED ONE Stop: 02/17/21 18:53 Last Admin: 02/17/21 21:19 Dose: Not Given Documented by: Fentanyl Citrate 2,500 mcg/ (Premix) 250 mls @ 2.5 mls/hr IV TITRATE PRN; Protocol PRN Reason: sedation Last Admin: 02/17/21 21:20 Dose: 25 mcg/hr, 2.5 mls/hr Documented by: Propofol (Diprivan 100 Ml) 100 mls @ 3.408 mls/hr IV TITRATE JACKIE; Protocol Last Admin: 02/17/21 21:19 Dose: 5 mcg/kg/min, 3.408 mls/hr Documented by: Propofol (Diprivan 100 Ml) Confirm Administered Dose 100 mls @ as directed .ROUTE .STK-MED ONE Stop: 02/17/21 20:36 Last Admin: 02/17/21 21:14 Dose: Not Given Documented by: Ceftriaxone Sodium/Dextrose 1 (gm/ Premix) 50 mls @ 100 mls/hr IV ONETIME ONE Stop: 02/17/21 21:37 Last Admin: 02/17/21 21:18 Dose: 100 mls/hr Documented by: Azithromycin 500 mg/ Sodium (Chloride) 250 mls @ 250 mls/hr IV ONETIME JACKIE Last Admin: 02/18/21 21:20 Dose: 250 mls/hr Documented by: Lactated Ringer's (Ringers, Lactated) 1,000 mls @ 999 mls/hr IV .BOLUS ONE Stop: 02/17/21 23:15 Last Admin: 02/17/21 22:16 Dose: 999 mls/hr Documented by: Remdesivir 200 mg/ Sodium (Chloride) 250 mls @ 250 mls/hr IV ONETIME ONE Stop: 02/17/21 22:46 Last Admin: 02/18/21 00:00 Dose: 250 mls/hr Documented by: Morphine Sulfate (Morphine 2 Mg/Ml Syringe) 2 mg IVPUSH Q2H PRN PRN Reason: Pain (severe 7-10) Stop: 02/18/21 22:49
[2021-02-20] MEDS ORDERED: Sodium Chloride 0.9% 500 ML IV SCH (12:15)
[2021-02-20 12:16] VITALS: BP 124/77; PULSE 71
== END 2021-02-20 16:15 | DRG 871 ==
LOC: MW.ED 18:37 → MW.ICU 21:18 → MW.MS 02-19 15:03
PROVIDERS: ADMIT Internal Medicine; ATTEND Internal Medicine
PROC: 3E033XZ Introduction of Vasopressor into Peripheral Vein, Percutaneous Approach (ICD-10-PCS; principal; 2021-02-17)
PROC: XW033E5 Introduction of Remdesivir Anti-infective into Peripheral Vein, Percutaneous Approach, New Technology Group 5 (ICD-10-PCS; 2021-02-17)
PROC: 3E0333Z Introduction of Anti-inflammatory into Peripheral Vein, Percutaneous Approach (ICD-10-PCS; 2021-02-17)
PROC: 5A1945Z Respiratory Ventilation, 24-96 Consecutive Hours (ICD-10-PCS; 2021-02-17)
PROC: 0BH17EZ Insertion of Endotracheal Airway into Trachea, Via Natural or Artificial Opening (ICD-10-PCS; 2021-02-17)
DX: A41.9 Sepsis, unspecified organism (principal); U07.1 COVID-19; J12.82 Pneumonia due to coronavirus disease 2019; J96.01 Acute respiratory failure with hypoxia; I46.9 Cardiac arrest, cause unspecified; G93.40 Encephalopathy, unspecified; Z51.5 Encounter for palliative care; Z66 Do not resuscitate; I95.9 Hypotension, unspecified; R00.0 Tachycardia, unspecified; I50.9 Heart failure, unspecified; I48.91 Unspecified atrial fibrillation; E11.9 Type 2 diabetes mellitus without complications; J44.9 Chronic obstructive pulmonary disease, unspecified; Z96.641 Presence of right artificial hip joint; F03.90 Unspecified dementia, unspecified severity, without behavioral disturbance, psychotic disturbance, mood disturbance, and anxiety; I11.0 Hypertensive heart disease with heart failure; H54.7 Unspecified visual loss; I87.2 Venous insufficiency (chronic) (peripheral); Z90.89 Acquired absence of other organs; J44.0 Chronic obstructive pulmonary disease with (acute) lower respiratory infection; R32 Unspecified urinary incontinence; M19.90 Unspecified osteoarthritis, unspecified site; Z86.73 Personal history of transient ischemic attack (TIA), and cerebral infarction without residual deficits; F32.A Depression, unspecified; Z79.01 Long term (current) use of anticoagulants; Z79.82 Long term (current) use of aspirin; Z79.899 Other long term (current) drug therapy
CPT/HCPCS: 0240U; 31500; 36415; 43752; 70450; 71045; 80053; 81001; 82803; 82947; 83605; 83735; 84145; 84484; 85025; 85027; 85610; 85730; 87040; 87086; 93005; 96365; 96366; 99285; 96375; A9270-GY; J0171; J0456; J0696; J1100; J1940; J2704; J7030; J7050; J7120